=== PATIENT | male | born 1955 | race Caucasian/White ===

== ENCOUNTER 2016-11-07 09:13 | Inpatient (IN) | payer OTHER ==
[~2016-11-07] VITALS: Ht 188 cm; Wt 68.0 kg
[~2016-11-07 09:13] MED LIST: ADVAIR 100-501 EACH INH; CHLORDIAZEPOXID25 M3 PO; GUAIFENESIN-COD10 ML PO; OMEPRAZOLE40 M1 PO; PERCOCET 325 MG1 TA2 PO; PREDNISONE10 M2 PO; PROVENTIL HFA6.7 GM INH; TRAMADOL HCL50 M1 PO; ZOFRAN ODT4 M1 SL
--- NOTE | 2016-11-07 09:21 | NUR ---
61 Y/O MALE C/O SOB X 1 WEEK, WORSENING OVER LAST 24 HOURS. PT WAS DIAGNOSED WITH PNEUMONIA FRIDAY AND PRESCRIBED PREDNISONE, NEBULIZER AND ANTIBIOTICS; HAS BEEN TAKING ALL WITH NO RELIEF. PT IN TRIPOD POSITION, SAT 92% RA; PLACED ON 2L WITH INCREASE TO 94%. CONGESTED COUGH NOTED. AFEBRILE. TAKEN TO ROOM 6 AND WILLIAMS Hull INTO EVAL.
--- NOTE | 2016-11-07 09:32 | ED DYSPNEA/ASTHMA COMPLAINT ---
History of Present Illness General Chief Complaint: Dyspnea (COPD, CHF, Other) Stated Complaint: SOB Source: patient, family, old records Exam Limitations: no limitations Vital Signs & Intake/Output Vital Signs & Intake/Output Vital Signs Date Time Temp Pulse Resp B/P B/P Pulse O2 O2 Flow FiO2 Mean Ox Delivery Rate 11/07 0946 150/90 11/07 0935 98 Nasal 2.0L Cannula 11/07 0930 93 Nasal 2.0L Cannula 11/07 0915 97.5 118 18 201/109 92 Room Air Allergies Coded Allergies: NO KNOWN ALLERGIES (05/29/16) Reconcile Medications Albuterol Sulfate (Proventil Hfa) 6.7 GM HFA.AER.AD 2 PUF INH Q4 SOB Fluticasone-Salmeterol (Advair 100-50 Diskus) 1 EACH BLST.W.DEV 1 PUF INH BID COPD Omeprazole 40 MG CAPSULE.DR 1 CAP PO DAILY acid reflux Prednisone 10 MG TABLET 1 TAB PO AD COPD 6 TABS DAYS 1-2 4 TABSA DAYS 3-5 2 TABS DAYS 6-8 1 TAB DAYS 9-11 Robitussin AC (Guaifenesin-Codeine Syrup) 200 MG-20 MG/10 ML LIQUID 10 ML PO Q6P PRN COUGH Triage Note: 61 Y/O MALE C/O SOB X 1 WEEK, WORSENING OVER LAST 24 HOURS. PT WAS DIAGNOSED WITH PNEUMONIA FRIDAY AND PRESCRIBED PREDNISONE, NEBULIZER AND ANTIBIOTICS; HAS BEEN TAKING ALL WITH NO RELIEF. PT IN TRIPOD POSITION, SAT 92% RA; PLACED ON 2L WITH INCREASE TO 94%. CONGESTED COUGH NOTED. AFEBRILE. TAKEN TO ROOM 6 AND [facility] Hull INTO [facility]. Triage Nurses Notes Reviewed? yes HPI: Patient is a 7-year-old male presents complaining of dyspnea. Symptoms for approximately 2 weeks. Patient was placed on antibiotics and a prednisone taper by his cargo agent last week with no improvement. On Friday patient was seen at an urgent care clinic had a chest x-ray and was diagnosed with pneumonia. Patient was placed on additional prednisone and moxifloxacin. Since yesterday symptoms significantly worsening. Dyspnea is severe worsens with exertion. Associated chills. Patient denies chest pain, fevers. Past History Travel History Traveled to [place] past 21 day No Medical History Any Pertinent Medical History? see below for history Neurological: NONE EENT: NONE Cardiovascular: NONE Respiratory: COPD, emphysema Gastrointestinal: NONE Hepatic: NONE Renal: NONE Musculoskeletal: NONE Psychiatric: NONE Endocrine: NONE Blood Disorders: NONE Cancer(s): NONE DISH STACKER/Reproductive: NONE Surgical History Surgical History: NOSE CYST Psychosocial History What is your primary language Kazakh Tobacco Use: Current Daily Use Daily Tobacco Use Amount/Type: => 5 Cigarettes daily ETOH Use: heavy use (per ) Family History Hx Contributory? No Review of Systems Review of Systems Constitutional: Reports: chills. EENTM: Reports: no symptoms. Respiratory: Reports: see HPI. Cardiovascular: Denies: chest pain, peripheral edema. GI: Denies: abdominal pain, vomiting. Genitourinary: Reports: no symptoms. Musculoskeletal: Reports: no symptoms. Skin: Reports: no symptoms. Neurological/Psychological: Reports: no symptoms. Hematologic/Endocrine: Reports: no symptoms. Immunologic/Allergic: Reports: no symptoms. Physical Exam Physical Exam General Appearance: alert, awake, severe distress Head: atraumatic, normal appearance Eyes: Bilateral: normal appearance, PERRL, EOMI. Ears, Nose, Throat: normal pharynx, normal ENT inspection, hearing grossly normal Neck: normal inspection, supple, full range of motion Respiratory: PATIENT TRIPODING WITH INCREASED RESPIRATORY EFFORT. dIMINISHED LUNG SOUNDS DIFFUSELY. mILD DIFFUSE EXPIRATORY WHEEZING. Cardiovascular: tachycardia (REGULAR RHYTHM) Gastrointestinal: soft, non-tender Extremities: normal inspection, normal capillary refill, normal range of motion, no edema Neurologic/Psych: no motor/sensory deficits, awake, alert, oriented x 3 Skin: intact, normal color, warm/dry Lymphatic: no anterior cervical manju Core Measures ACS in differential dx? No Severe Sepsis Present: No Septic Shock Present: No Progress Differential Diagnosis: asthma, bronchitis, CHF, COPD, pulmonary embolism, pneumonia, unstable angina, electrolyte abnormality Plan of Care: Orders Procedure Date/time Status LACTIC ACID 11/07 1224 Active CIWA 11/07 1210 Active Admit to inpatient 11/07 1147 Active LOWER RESPIRATORY CULTURE 11/07 1142 Active URINALYSIS 11/07 1142 Active Pathway - chart 11/07 1139 Active Patient Data 11/07 1139 Active URINE OSMOLALITY 11/07 1139 Active URINE CREATININE, SPOT 11/07 1139 Active URINE LYTES, SPOT 11/07 1139 Active SERUM OSMOLALITY 11/07 1139 Active Patient Data 11/07 1118 Active BLOOD CULTURE 11/08 923 Active LACTIC ACID 11/08 923 Complete COMPREHENSIVE METABOLIC PANEL 11/08 923 Complete CBC WITHOUT DIFFERENTIAL 11/08 923 Complete EKG 11/08 923 Active TRC EVALUATION (GEN) 11/07 UNK Active House Staff 11/07 UNK Active VTE Mechanical Prophylaxis 11/07 UNK Active Vital Signs 11/07 UNK Active Intake & Output 11/07 UNK Active Current Medications Sig/Omar Start time Last Medication Dose Stop Time Status Admin Methylprednisolone 40 MG Q8 11/07 1400 UNVr (Solumedrol) 11/11 0601 Enoxaparin Sodium 40 MG DAILY 11/07 1138 UNVr (Lovenox) Azithromycin 500 MG ONCE ONE 11/07 1115 AC (Zithromax) 11/07 1214 Sodium Chloride 250 ML (Normal Saline 0.9%) Sodium Chloride 1,000 ML ONCE ONE 11/07 1100 AC 11/07 (Normal Saline 0.9%) 11/07 2058 1123 Laboratory Tests 11/07/16 0950: Lactic Acid Pending 11/07/16 0950: Anion Gap 11, Estimated GFR > 60, BUN/Creatinine Ratio 12.0, Glucose 98, Lactic Acid 1.4, Calcium 9.0, Total Bilirubin 0.7, AST 40, ALT 42, Alkaline Phosphatase 85, Total Protein 6.8, Albumin 3.8, Globulin 3.0, Albumin/Globulin Ratio 1.3, CBC w Diff MAN DIFF ORDERED, RBC 5.34, MCV 94.4 H, MCH 32.2 H, RDW 13.8, MPV 5.5 L, Gran % 92.0 H, Lymphocytes % 4.8 L, Monocytes % 2.7, Eosinophils % 0.1 , Basophils % 0.4, Absolute Granulocytes 16.6 H, Absolute Lymphocytes 0.9 L, Absolute Monocytes 0.5, Absolute Eosinophils 0, Absolute Basophils 0.1, Platelet Estimate INCREASED, Poikilocytosis 1+, Anisocytosis 1+, PUBS MCHC 34.1 Microbiology 11/07 1142 LOWER RESP: Respiratory Culture - ORD 11/07 1142 LOWER RESP: Gram Stain - ORD 11/07 1025 BLOOD: Blood Culture - RECD 11/07 0950 BLOOD: Blood Culture - RECD 11/07/2016 10:30:34 AM: Patient feeling improved after DuoNeb treatment and with the supplemental oxygen. Patient longer tripoding. 11/07/2016 11:16:14 AM: Results of labs discussed with the patient and his . Patient mentating normal. Discussed with Dr. Warren: IV steroids, IV antibiotics, will consult on patient. Discussed with Dr. He for admission. (TYSHAWN KRAMER,FIONA) Diagnostic Imaging: Viewed by Me: Radiology Read. Discussed w/RAD: Radiology Read. Radiology Impression: PATIENT: DENA FULLER PRESENT AGE: 61 PATIENT ACCOUNT NO: [id number] : 56 LOCATION: [facility] ORDERING PHYSICIAN: FIONA KRAMER SERVICE DATE: 11/07/16 EXAM TYPE: RAD - XRY-CHEST XRAY, PA AND LATERAL EXAMINATION: XR CHEST CLINICAL INFORMATION: Cough , recent diagnosis of pneumonia, worsening symptoms. COMPARISON: Chest 2015. CT of chest 03/28/2016. TECHNIQUE: PA and lateral views of the chest are obtained. FINDINGS: The heart is normal size. There is no congestion or focal consolidation. There is minor linear atelectasis at the left lung base. There are stable findings of COPD. There are healed or healing right 7 through 9 and left 8 and 9 rib fractures. IMPRESSION: 1. Stable COPD findings. 2. Healed or healing bilateral rib fractures. 3. No acute cardiopulmonary process. DICTATED BY: YEIMI SIMON MD DATE/TIME DICTATED:11/07/161014 URBAN ANTHROPOLOGIST: IVAN DATE/TIME TRANSCRIBED:11/07/161014 CONFIDENTIAL, DO NOT COPY WITHOUT APPROPRIATE AUTHORIZATION. <Electronically signed in Other Vendor System> SIGNED BY: YEIMI SIMON MD 11/07/16 1027 Initial ED EKG: normal sinus rhythm 95 bpm normal axis, normal intervals, prominent T waves V3 through V5 similar to previous EKG, no acute ST/T-wave abnormalities compared to previous EKG Prior EKG: unchanged Departure Departure Time of Disposition: 1111 Disposition: STILL A PATIENT Condition: Stable Clinical Impression Primary Impression: COPD exacerbation Secondary Impressions: Hyponatremia Referrals: PATY HER MD (PCP/Family) Departure Forms: Customer Survey General Discharge Information Admission Note Spoke With: CASSANDRA HE M.D Documentation of Exam: Documentation of any treatments & extenuating circumstances including Concerns Regarding Discharge (functional status, medication knowledge or non-compliance, living conditions, etc.) that warrant an admission rather than observation: Total respiratory care, IV steroids, IV antibiotics, pulmonary consultation, correction of sodium, neurologic monitoring given patient's hyponatremia. [facility] monitoring Critical Care Note Critical Care Note Critical Care Time: 30-74 min
--- NOTE | 2016-11-07 10:00 | NUR ---
RESP TX GIVEN. TO AND FROM XRAY.
--- NOTE | 2016-11-07 10:26 | NUR ---
DRAW TWO SETS BLD CULTURES, BLUE, SST, LAV, MARSHALL SENT TO LAB
--- NOTE | 2016-11-07 10:27 | RADIOLOGY REPORT ---
EXAMINATION: XR CHEST CLINICAL INFORMATION: Cough, recent diagnosis of pneumonia, worsening symptoms. COMPARISON: Chest 04/09/2016. CT of chest 03/28/2016. TECHNIQUE: PA and lateral views of the chest are obtained. FINDINGS: The heart is normal size. There is no congestion or focal consolidation. There is minor linear atelectasis at the left lung base. There are stable findings of COPD. There are healed or healing right 7 through 9 and left 8 and 9 rib fractures. IMPRESSION: 1. Stable COPD findings. 2. Healed or healing bilateral rib fractures. 3. No acute cardiopulmonary process.
[2016-11-07 10:32] LABS: ABSOLUTE BASOPHIL COUNT 0.1 /CUMM (0.0-0.2); ABSOLUTE EOSINOPHIL COUNT 0 /CUMM (0.0-0.7); ABSOLUTE GRANULOCYTE CT 16.6 /CUMM (1.4-6.5); ABSOLUTE LYMPH COUNT 0.9 /CUMM (1.2-3.4); ABSOLUTE MONOCYTE COUNT 0.5 /CUMM (0.10-0.60); BASOPHIL % 0.4 % (0.0-2.0); EOSINOPHIL % 0.1 % (0-5); HEMATOCRIT 50.4 % (42-52); MEAN CORPUSCULAR HGB 32.2 PG (27.0-31.0); MEAN CORPUSCULAR HGB CONC 34.1 G/DL (33.0-37.0); MEAN CORPUSCULAR VOLUME 94.4 FL (80.0-94.0); MEAN PLATELET VOLUME 5.5 FL (7.4-10.4); PLATELET COUNT 506 /CUMM (130-400); RBC DISTRIBUTION WIDTH 13.8 % (11.5-14.5); RED BLOOD CELL CT 5.34 /CUMM (4.70-6.10); WHITE BLOOD CELL COUNT 18.1 /CUMM (4.8-10.8)
--- NOTE | 2016-11-07 10:52 | NUR ---
CRITICAL TEST RESULTS [id number] DENA FULLER 61 M TESTS AND RESULTS: SODIUM 119 Results received and read back by: JOHN GILBERT Results received date and time: 11/07/16 1052 The following provider was notified of the results, and read the results back: SENTHIL Sotelo Notified date and time: 11/07/16 at 1052
--- NOTE | 2016-11-07 11:35 | History & Physical ---
HUNTER ANDREWS 11/07/16 1134: General Information and HPI MD Statement: I have seen and personally examined DENA FULLER and documented this H&P. The patient is a 61 year old M who presented with a patient stated chief complaint of [sob]. Source of Information: patient Exam Limitations: no limitations History of Present Illness: This is a 61-year-old male, current active cigarette smoker (one pack per day, previous smoker since 19 years old, previously 2-3 packs per day), history of alcoholism (admission for alcohol detoxification 2002, sober for 15 years and drinking again since last 2 years), history of COPD, history of ulcerative colitis, previously found pulmonary nodules on CT chest with low-dose lung cancer screening comes in today with worsening shortness of breath for last 2 weeks. Currently the patient was doing all right when he started to experience worsening shortness of breath 2 weeks prior to admission he noticed that his shortness of breath was worse, he could not walk, it was worse on exertion. It continued to gradually worsen and came to a point where he sometimes had to stand up or leaning forward to catch his breath and it was difficult to use the steps at home as well. Because of this ,he contacted his pulmonologst - Dr. Warren who prescribed 4 days of steroid taper along with 5 days of azithromycin. The patient completed the entire course, which finished on 11/04/2016, however his shortness of breath did not improve much. He noticed that it was very severe inspite of completion of prednisone and azithromycin OP and on Friday - he visited the urgent care clinic 3 days prior to today's presentation. They did a chest x-ray and found pneumonia and treated him with moxifloxacin and prednisone 20 mg daily. Patient has been smoking 2-3 packs per day since he was 19 years old, has gradually reduce it to one pack per day. Has been diagnosed with COPD and is not on any home oxygen. His regular doctors are Dr. Warren as a lung doctor and Dr. Geremias Claire as his PCP. Denied any chest pain, palpitations, nausea, vomiting, diarrhea, lower extremity edema. However he did complain of mild chills, nasal congestion and abnormal sensation in the throat. Upon examination it was noted that the patient had candidal oral thrush at the back of the throat. Allergies/Medications Allergies: Coded Allergies: NO KNOWN ALLERGIES (05/29/16) Home Med list Albuterol Sulfate (Proventil Hfa) 6.7 GM HFA.AER.AD 2 PUF INH Q4 SOB Fluticasone-Salmeterol (Advair 100-50 Diskus) 1 EACH BLST.W.DEV 1 PUF INH BID COPD Moxifloxacin HCl (Avelox) 400 MG TABLET 400 MG PO D ANTIBIOTIC, INFECTION ( Reported) Omeprazole 40 MG CAPSULE.DR 1 CAP PO DAILY acid reflux Prednisone 10 MG TABLET 1 TAB PO AD COPD 6 TABS DAYS 1-2 4 TABSA DAYS 3-5 2 TABS DAYS 6-8 1 TAB DAYS 9-11 Robitussin AC (Guaifenesin-Codeine Syrup) 200 MG-20 MG/10 ML LIQUID 10 ML PO Q6P PRN COUGH Compliance With Home Meds: FAIR Past History Travel History Traveled to [place] past 21 day No Medical History Neurological: NONE EENT: NONE Cardiovascular: NONE Respiratory: COPD, emphysema Gastrointestinal: NONE Hepatic: NONE Renal: NONE Musculoskeletal: NONE Psychiatric: NONE Endocrine: NONE Blood Disorders: NONE Cancer(s): NONE TECHNICAL SERVICES MANAGER/Reproductive: NONE Surgical History Surgical History: NOSE CYST Past Family/Social History Psychosocial History Where do you live? Home Who Do You Live With? spouse Services at Home: None Smoking Status: Current Everyday Smoker ETOH Use: heavy use (per ) Illicit Drug Use: denies illicit drug use Functional Ability ADLs Independent: dressing, eating, toileting, bathing. Ambulation: independent IADLs Independent: shopping, housework, finances, food prep, telephone, transportation , medication admin. 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 Denies: chills, malaise, weakness. EENTM: Denies: blurred vision, double vision, visual changes, eye pain, eye drainage. Cardiovascular: Reports: orthopena. Denies: chest pain, edema, palpitations, peripheral edema, syncope. Respiratory: Reports: cough, orthopnea, short of breath, sputum production, wheezing. Denies : hemoptysis, stridor. GI: Denies: abdominal pain, bloating, constipation, diarrhea, distention. Genitourinary: Denies: discharge, dysuria, frequency, hematuria, hesitation. Musculoskeletal: Denies: back pain, gout, joint pain, joint swelling, muscle pain. Skin: Denies: cysts, change in skin color, change in hair/nails, dryness. Neurological/Psychological: Denies: anxiety, ataxia, cognitive dysfunction, confusion, depressed, emotional problems. Hematologic/Endocrine: Reports: no symptoms. Immunologic/Allergic: Reports: no symptoms. All Other Systems: Reviewed and Negative Exam & Diagnostic Data Last 24 Hrs of Vital Signs/I&O Vital Signs Date Time Temp Pulse Resp B/P B/P Pulse O2 O2 Flow FiO2 Mean Ox Delivery Rate 11/07 1242 97 18 152/82 92 Nasal 3.0L Cannula 11/07 1228 97.1 94 18 144/69 11/07 0946 150/90 11/07 0935 98 Nasal 2.0L Cannula 11/07 0930 93 Nasal 2.0L Cannula 11/07 0915 97.5 118 18 201/109 92 Room Air Intake & Output 11/07 1600 11/07 0800 11/07 0000 Intake Total 1100 Output Total Balance 1100 Intake, IV 1100 Patient 68.039 kg Weight Weight Reported by Patient Measurement Method Physical Exam General Appearance Alert, Oriented X3, Cooperative, No Acute Distress Skin No Rashes, No Breakdown, No Significant Lesion Skin Temp/Moisture Exam: Cool/Dry Sepsis Skin Exam (color): Normal for Ethnicity HEENT Atraumatic, PERRLA, EOMI Neck Supple, No JVD, No thryomegaly Lymphatic mo lad Cardiovascular Regular Rate, Normal S1, Normal S2, No Murmurs Lungs mild wheezing noted b/l Abdomen Normal Bowel Sounds, Soft, No Tenderness Extremities No Clubbing, No Cyanosis, No Edema, Normal Pulses Vascular Normal Pulses Last 24 Hrs of Labs/Gage: Laboratory Tests 11/07/16 1352: Urine Color YEL, Urine Clarity CLEAR, Urine pH 7.5, Ur Specific [place] 1.010, Urine Protein NEG, Urine Ketones NEG, Urine Nitrite NEG, Urine Bilirubin NEG, Urine Urobilinogen 0.2, Ur Leukocyte Esterase NEG, Ur Microscopic EXAM NOT REQUIRED, Urine Hemoglobin NEG, Urine Glucose NEG 11/07/16 1352: Urine Osmolality 227 L, Ur Random Creatinine 29.6, Ur Random Sodium 33, Ur Random Potassium 50.1, Fraction Sodium Excret 0.5 11/07/16 1351: Lactic Acid 1.4 04/27/17 1351: Anion Gap 8, Estimated GFR > 60, BUN/Creatinine Ratio 11.7, Serum Osmolality 273 L 11/07/16 0950: Anion Gap 11, Estimated GFR > 60, BUN/Creatinine Ratio 12.0, Glucose 98, Serum Osmolality 263 L, Lactic Acid 1.4, Calcium 9.0, Total Bilirubin 0.7, AST 40, ALT 42, Alkaline Phosphatase 85, Total Protein 6.8, Albumin 3.8, Globulin 3.0, Albumin/Globulin Ratio 1.3, CBC w Diff MAN DIFF ORDERED, RBC 5.34, MCV 94.4 H, MCH 32.2 H, RDW 13.8, MPV 5.5 L, Gran % 92.0 H, Lymphocytes % 4.8 L, Monocytes % 2.7, Eosinophils % 0.1, Basophils % 0.4, Absolute Granulocytes 16.6 H, Absolute Lymphocytes 0.9 L, Absolute Monocytes 0.5, Absolute Eosinophils 0, Absolute Basophils 0.1, Platelet Estimate INCREASED, Poikilocytosis 1+, Anisocytosis 1+, PUBS MCHC 34.1, Serum Alcohol < 10.0 Microbiology 11/08 1351 URINE ROUT: Legionella Antigen - COMP 11/07 135 URINE ROUT: Streptococcus pneumoniae Antigen (M - COMP 11/07 1142 LOWER RESP: Respiratory Culture - ORD 11/07 1142 LOWER RESP: Gram Stain - ORD 11/07 1025 BLOOD: Blood Culture - RECD 11/07 0950 BLOOD: Blood Culture - RECD Diagnostic Data EKG Results nsr, peaked t waves noted on previous ekg as well CXR Results no acute cardiopulm findings. Assessment/Plan Assessment: In Summary this is a 61-year-old male with past medical history of COPD not on home oxygen, current active smoker, heavy alcohol user came in with chief complaint of worsening shortness of breath since last 2 weeks, failed outpatient treatment with azithromycin and prednisone, was started on Avelox at the urgent care clinic is here for worsening shortness of breath secondary to COPD exacerbation. At the emergency department he was found to be afebrile however he was tachycardic at 118, respiratory rate of 20, blood pressure was found to be 201/ 109 which came down to 150/90 without meds, he was 92% saturating on room air on was placed on 2 L nasal cannula which improved oxygen saturation 98%. He was found to have an elevated white count of 18.1, no bands, H/H of 17.2/50.4 , platelet count of 506.His lytes were found to be low sodium of 119 (baseline around 130) him a potassium of 5.6, bicarbonate 21, BUN/creatinine of 6/0.5, normal GFR. Initial lactic acid was found to be less than 2 at 1.4, liver function tests within normal limits, calcium was around 9. Patient was received one time of 125 IV Solu-Medrol at the emergency department and one time of IV ceftriaxone and azithromycin. Chest x-ray did not show any acute cardiac pulmonary findings. Blood cultures are sent prior to receiving the antibiotics however patient has been on antibiotics prior to admission. Sputum cultures, urine Legionella and strep pneumonia antigen were sent. Problem list along with assessment and plan. Problem #1 COPD exacerbation. * Known case of COPD, follows up with Dr. Warren. * Patient was recently started on Avelox at the urgent care for finding of pneumonia on chest x-ray.He has already taken 3 out of 7 days of Avelox. * Continue Avelox to complete entire course of 7 days today day 4 out of 7. * Continue IV Solu-Medrol 100mg every 8. * Continue to follow sputum cultures, urine for Legionella and strep pneumonia antigen. * Continue TRC nebulization. * Incentive spirometry. Problem #2 leukocytosis. * Even though patient had finding of pneumonia on chest x-ray at the urgent care clinic, today the chest x-ray is not showing any signs of infection/pneumonia, could be resolving pna, the leukocytosis most likely secondary to recent steroid use. * Patient also does not have any fever. * However as the patient was started on Avelox will complete the entire course of Avelox, as it could be a resolving pneumonia. * Continue to follow white count. Problem #3 hyponatremia. * Patient seems mildly dehydrated however volume status mostly seems to be normal. * Patient has history of heavy drinking and the hyponatremia most likely secondary to beer potomania * Baseline sodium of 130. * glucose within normal limits therefore less likely pseudohyponatremia. * Will check serum osmolarity. * We'll also check urine lites. * Further management of hyponatremia and depending on the serum osmolarity. * We'll recheck sodium at 6 PM. Problem #4 hyperkalemia. * Potassium noted to be 5.4. * One time a 60 mL Kayexalate given. * Tall T waves noted on the EKG however these were present on the previous EKG as well. * Recheck potassium with BP at 6 PM. Problem #5 history of alcoholism. * Patient has been drinking since 19 years old, was sober for 15 years in between started again for last 2 to 3 years, 6 beers daily. * Continue monitoring CIWA * Continue Ativan for ciwa protocol when necessary. Patient is full code DVT prophylaxis with Lovenox. Regular diet. As Ranked By This Provider Problem List: 1. Hyponatremia 2. ETOH abuse 3. COPD (chronic obstructive pulmonary disease) 4. COPD exacerbation Core Measures/Miscellaneous Acute Coronary Syndrome ACS Diagnosis: No Cerebrovascular Accident CVA/TIA Diagnosis: No Congestive Heart Failure CHF Diagnosis: No Venous Thromboembolism VTE Risk Factors: Age > 40 No [facility] VTE prophylaxis d/t: No contraindications No VTE Pharm Prophylaxis d/t: No contraindications VTE Diagnosis: No VTE Type: NONE VTE Confirmed by (Test): NONE Severe Sepsis Severe Sepsis Present: No Septic Shock Septic Shock Present: No Miscellaneous Documentation Attending Case Discussed With: LEONOR NASH MD Primary Care Physician: GEREMIAS CLAIRE MD Patient sees these Specialists Dr warren Level of Patient Care: General Medicine LEONOR NASH 11/08/16 1112: Attending MD Review Statement Attending Statement Attending Statement: examined this patient, discuss w/resident/PA/SOLAR THERMAL INSTALLER, agreed w/resident/PA/SOLAR THERMAL INSTALLER, discussed with family, reviewed EMR data (avail), discussed with nursing, discussed with case mgmt, reviewed images, amended to note Attending Assessment/Plan: ASSESSMENT 1. Acute hypoxic respiratory failure. 2. Alcohol dependence 3. hyponatremia 4. hyperkalemia 5. CAP. 6. COPD 7. Tobacco abuse PLAN 1. Admit to inpatient medical services 2. I/v steroids, abx, consult pulmonary. O2 supplementation, TRC ,nebs 3. CIWA scale prn ativan 4. Hyponatremia probable dehydration NS gentle hydration. 5. kayexalate for hyperkalemia 6. alcohol and tobacco cessation counselling. 7. gi/dvt prophyalxis 8. full code plan of care d/wed patient and family/ bedside.
--- NOTE | 2016-11-07 12:00 | NUR ---
RESPIRATIONS LESS LABORED.
--- NOTE | 2016-11-07 12:13 | Cons- Pulmonary ---
General Information and HPI Consulting Request Date of Consult: 11/07/16 Requested By: ER Reason for Consult: COPD Exacerbation Source of Information: patient Exam Limitations: no limitations History of Present Illness: 61-year-old man. Known to me from the office. Last seen 07/2016. Recent urgent care visit for an excaerbation of COPD. Rx avelox and steroids. Usual COPD tx with BREO with rinsing of the mouth. Participated in smoking cessation, however continues to smoke 1 PPD, this is reduced from 2 PPD. Still smoking 1PPD from 2PPD Dyspnea with exertion. Cough, yellowish phlegm, no obvious fevers. WBC 18.1 Healing rib fractures on CXR, without obvious infiltrate. No rib tenderness or splinting. No sick contacts or travel hx. Admits to drinking to at least a 6 pack per day. PFTs April 2016 show severe emphysema. DLCO was 24. There is also is evidence of air trapping and a significant bronchodilator response FEV1 was 43% predicted 1.96L. He has a significant history of depression and a very significant smoking history of 45 years smoking about [address] Gonzalez has been following him for pulmonary nodules in the next nodule follow-up will be in one year. Multiple pulmonary nodules and regions of scarring are again identified and are unchanged. Specifically, the spiculated nodule within the left upper lobe is stable and measures 0.4 cm. There has been interval resolution of a right upper lobe nodule. No new or increasing pulmonary mass or nodule seen. 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 Allergies/Medications Allergies: Coded Allergies: NO KNOWN ALLERGIES (05/29/16) Home Med List: Albuterol Sulfate (Proventil Hfa) 6.7 GM HFA.AER.AD 2 PUF INH Q4 SOB Fluticasone-Salmeterol (Advair 100-50 Diskus) 1 EACH BLST.W.DEV 1 PUF INH BID COPD Omeprazole 40 MG CAPSULE. 1 CAP PO DAILY acid reflux Prednisone 10 MG TABLET 1 TAB PO AD COPD 6 TABS DAYS 1-2 4 TABSA DAYS 3-5 2 TABS DAYS 6-8 1 TAB DAYS 9-11 Robitussin AC (Guaifenesin-Codeine Syrup) 200 MG-20 MG/10 ML LIQUID 10 ML PO Q6P PRN COUGH Current Medications: Current Medications Sig/Omar Start time Last Medication Dose Route Stop Time Status Admin Albuterol Sulfate 3 ML ONCE ONE 11/07 0930 DC 11/07 INH 11/07 930 0935 Azithromycin 500 MG ONCE ONE 11/07 1115 AC Sodium Chloride 250 ML IV 11/07 1214 Ceftriaxone Sodium 0 .STK-MED ONE 11/07 1132 DC .ROUTE Ceftriaxone Sodium 1,000 MG ONCE ONE 11/07 1115 DC 11/07 IV 11/07 1116 1148 Enoxaparin Sodium 40 MG DAILY 11/07 1138 UNVr SC Ipratropium [place] 2.5 ML ONCE ONE 11/07 0930 DC 11/07 INH 11/07 0831 0935 Methylprednisolone 40 MG Q8 11/07 1400 UNVr IV 11/11 0601 Methylprednisolone 0 .STK-MED ONE 11/07 1131 DC .ROUTE Methylprednisolone 125 MG ONCE ONE 11/07 1115 DC 11/07 IV 11/07 1116 1148 Sodium Chloride 1,000 ML ONCE ONE 11/07 1100 AC 11/07 IV 11/07 Review of Systems Comments 18 point review of systems performed. Pertinent positive and negative findings are in the HPI, otherwise negative. Past History Travel History Traveled to [place] past 21 day No Medical History Neurological: NONE EENT: NONE Cardiovascular: NONE Respiratory: COPD, emphysema Gastrointestinal: NONE Hepatic: NONE Renal: NONE Musculoskeletal: NONE Psychiatric: NONE Endocrine: NONE Blood Disorders: NONE Cancer(s): NONE EXPERIENTIAL THERAPIST/Reproductive: NONE Surgical History Surgical History: NOSE CYST Family History Relations & Conditions If Any: Relation not specified for: *No pertinent family history Psychosocial History ETOH Use: heavy use (per ) Exam & Diagnostic Data Last 24 Hrs of Vital Signs/I&O Vital Signs Date Time Temp Pulse Resp B/P B/P Pulse O2 O2 Flow FiO2 Mean Ox Delivery Rate 11/07 0946 150/90 11/07 0835 98 Nasal 2.0L Cannula 11/07 929 93 Nasal 2.0L Cannula 11/07 0815 97.5 118 18 201/109 92 Room Air Intake & Output 11/07 1600 11/07 0800 11/07 0000 Intake Total Output Total Balance Patient 150 lb Weight Weight Reported by Patient Measurement Method Physical Exam Other Physical Findings: Gen - alert and awake HEENT - NCAT CVS - S1, S2, no murmurs, rubs or gallops Lungs - prolonged end expiratory phase Abdomen - soft, non-tender, bs+ Ext - no edema, no cyanosis Last 48 Hrs of Labs/Gage: Laboratory Tests 11/07/16 0950: Lactic Acid Pending 11/07/16 0950: Anion Gap 11, Estimated GFR > 60, BUN/Creatinine Ratio 12.0, Glucose 98, Lactic Acid 1.4, Calcium 9.0, Total Bilirubin 0.7, AST 40, ALT 42, Alkaline Phosphatase 85, Total Protein 6.8, Albumin 3.8, Globulin 3.0, Albumin/Globulin Ratio 1.3, CBC w Diff MAN DIFF ORDERED, RBC 5.34, MCV 94.4 H, MCH 32.2 H, RDW 13.8, MPV 5.5 L, Gran % 92.0 H, Lymphocytes % 4.8 L, Monocytes % 2.7, Eosinophils % 0.1 , Basophils % 0.4, Absolute Granulocytes 16.6 H, Absolute Lymphocytes 0.9 L, Absolute Monocytes 0.5, Absolute Eosinophils 0, Absolute Basophils 0.1, Platelet Estimate INCREASED, Poikilocytosis 1+, Anisocytosis 1+, PUBS MCHC 34.1 Assessment/Plan Impression/Plan: 61-year-old man. Known to me from the office. Last seen 07/2016. Recent urgent care visit for an excaerbation of COPD. Rx avelox and steroids. Usual COPD tx with BREO with rinsing of the mouth. Participated in smoking cessation, however continues to smoke 1 PPD, this is reduced from 2 PPD. Still smoking 1PPD from 2PPD Dyspnea with exertion. Cough, yellowish phlegm, no obvious fevers. WBC 18.1 Healing rib fractures on CXR, without obvious infiltrate. No rib tenderness or splinting. No sick contacts or travel hx. Admits to drinking to at least a 6 pack per day. PFTs April 2016 show severe emphysema. DLCO was 24. There is also is evidence of air trapping and a significant bronchodilator response FEV1 was 43% predicted 1.96L. He has a significant history of depression and a very significant smoking history of 45 years smoking about [address] Gonzalez has been following him for pulmonary nodules in the next nodule follow-up will be in one year. Multiple pulmonary nodules and regions of scarring are again identified and are unchanged. Specifically, the spiculated nodule within the left upper lobe is stable and measures 0.4 cm. There has been interval resolution of a right upper lobe nodule. No new or increasing pulmonary mass or nodule seen. 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 Impression 61 year old man * COPD exacerbation, possible underlying bronchitis and smoking related lung disease * hyponatremia with a likely component of alcoholism * healing rib fractures, per pt had an accidental fall, however no symptoms Plan - TRC/Nebs - incentive spirometry - solumedrol 40mg iv q8h, monitor finger sticks - as far as antibiotics can complete the course of po Avelox, today was supposed to be day 4/7 - sputum cx, urine for legionella and strep ag - takes BREO at home (do not order symbicort inpatient) - can add spiriva to regimen as long as no contraindications to anti- cholingergis (glaucoma, prostatic issues) - hyponatremia workup per primary team, urine and serum osm, etc - drinking and smoking cessation counseling - monitor on ciwa - DVT prophylaxis at all times Consult Acknowledgment - Thank you for your consult request.
[2016-11-07 12:28] VITALS: BP 144/69
--- NOTE | 2016-11-07 13:00 | NUR ---
ATTEMPTED TO WALK TO BR, BECAME SOB, ASSISTED BACK TO BED. O2 SAT 93% WITH O2 AT 2L.
[2016-11-07] MEDS ORDERED: AVELOX400 M1 PO (14:08)
[2016-11-07 14:15] VITALS: BP 152/82
--- NOTE | 2016-11-07 14:21 | NUR ---
BED ASSIGNMENT 204-02
--- NOTE | 2016-11-07 14:29 | NUR ---
REPORT TO FLOOR. (SETEPHANIE CEJA)
--- NOTE | 2016-11-07 15:24 | NUR ---
[facility] CALLED FOR TRANSPORT
--- NOTE | 2016-11-07 15:28 | NUR ---
ASSUMED CARE OF PT IN ED. PT AWAKE, ALERT AND CONVERSANT WITH NO COMPLAINTS. STATES ATIVAN MADE HIM TIRED. REPORTS BREATHING "MUCH BETTER" THAN ON ARRIVAL TO ED. NORMAL SALINE INFUSING @ 75 ML/HR PER SEP PT REQUESTING TO KEEP JEANS ON. HOSPITAL GOWN OVER CLOTHES. AWAITING TRANSPORT.
--- NOTE | 2016-11-07 15:45 | NUR ---
1545 PT ARRIVED TO THE FLOOR BY Edgar MAGAÑA+O X3, 95% ON 3LNC, NO S/O DISTRESS, DENIES PAIN, VSS, ORIENTED TO ROOM, BED LOW, LOCKED, CALL LIGHT IN REACH.
[2016-11-07 15:51] VITALS: BP 138/72
[2016-11-07 22:20] VITALS: BP 154/80
[2016-11-08] VITALS (7 sets, daily range): BP systolic 128–142; BP diastolic 62–82
[2016-11-08 04:09] LABS: ABSOLUTE BASOPHIL COUNT 0 /CUMM (0.0-0.2); ABSOLUTE EOSINOPHIL COUNT 0 /CUMM (0.0-0.7); ABSOLUTE GRANULOCYTE CT 19.4 /CUMM (1.4-6.5); ABSOLUTE LYMPH COUNT 0.7 /CUMM (1.2-3.4); ABSOLUTE MONOCYTE COUNT 0.4 /CUMM (0.10-0.60); BASOPHIL % 0 % (0.0-2.0); EOSINOPHIL % 0 % (0-5); GRANULOCYTE % 94.6 % (42.2-75.2); HEMATOCRIT 44.1 % (42-52); MEAN CORPUSCULAR HGB 32.5 PG (27.0-31.0); MEAN CORPUSCULAR HGB CONC 33.8 G/DL (33.0-37.0); MEAN CORPUSCULAR VOLUME 96.2 FL (80.0-94.0); MEAN PLATELET VOLUME 5.6 FL (7.4-10.4); PLATELET COUNT 436 /CUMM (130-400); RBC DISTRIBUTION WIDTH 13.8 % (11.5-14.5); RED BLOOD CELL CT 4.59 /CUMM (4.70-6.10); WHITE BLOOD CELL COUNT 20.5 /CUMM (4.8-10.8)
--- NOTE | 2016-11-08 06:52 | PN- Housestaff ---
See Addendum Subjective Follow-up For: COPD exacerbation alcohol withdrawal hyponatremia hyperkalemia htn Subjective: Pt was noted to be more lethargic this morning. He was alert but would doze off intermittently during our conversation. ABG checked, not indicative of CO2 retention. Scheduled ativan was discontinued as it is most likely the cause of his lethargy. will keep prn ativan per beny. his only complaint this morning was that he had to urinate frequently due to the IV fluids we are giving him. when we saw him later in the morning, his was tearful about his current state, stating that "this is not him", referring to his lethargy. She seems guilty about continuing to smoke, along with him. She also said that the pt would try to hide his drinking from her, so she cannot accurately say how much she drank, but reported that his last drink was 11/06 night. He has been afebrile, bp 130-154/69-90. noted inc in wbc from 18.1 to 20.5 hb 17.2 to 14.9, platelet 506 to 436. na 121 to 126, will finish the current bag of ns. k 5.6 to 4.6 with kayexelate. solumedrol changed to q12 as per Dr. Warren. Review of Systems Constitutional: Reports: see HPI. Objective Last 24 Hrs of Vital Signs/I&O Vital Signs Date Time Temp Pulse Resp B/P B/P Pulse O2 O2 Flow FiO2 Mean Ox Delivery Rate 11/08 0814 92 Nasal 2.0L Cannula 11/08 0800 95 Nasal 3.0L Cannula 11/08 0800 20 95 Nasal 3.0L Cannula 11/08 0621 97.7 92 22 142/82 95 Nasal 2.0L Cannula 11/08 0202 98.1 83 24 130/82 96 Nasal 2.0L Cannula 11/08 0000 94 Nasal 2.0L Cannula 11/07 2220 97.8 88 18 154/80 96 Nasal 3.0L Cannula 11/07 1701 Nasal 3.0L Cannula 11/07 1558 94 Nasal 2.0L Cannula 11/07 1551 98.0 97 20 138/72 95 Nasal 3.0L Cannula 11/07 1536 97.4 88 20 134/75 92 Nasal 2.0L Cannula 11/07 1415 94 20 152/82 11/07 1242 97 18 152/82 92 Nasal 3.0L Cannula 11/07 1228 97.1 94 18 144/69 Intake & Output 11/08 1600 11/08 0800 11/08 0000 Intake Total 670 Output Total 400 0 Balance -400 670 Intake, IV 430 Intake, Oral 240 Number 0 Bowel Movements Output, Urine 400 0 Physical Exam General Appearance: lethargic Cardiovascular: Regular Rate, Normal S1, Normal S2 Lungs: diffuse decreased air entry Abdomen: Normal Bowel Sounds, Soft, No Tenderness Extremities: No Edema Current Medications: Current Medications Sig/Omar Start time Last Medication Dose Route Stop Time Status Admin Albuterol Sulfate 3 ML EVERY 4 HRS/AWAKE 11/08 1999 AC 11/08 INH 0812 Azithromycin 500 MG ONCE ONE 11/07 1115 DC 11/07 Sodium Chloride 250 ML IV 11/07 1214 1220 Ceftriaxone Sodium 0 .STK-MED ONE 11/07 1132 DC .ROUTE Ceftriaxone Sodium 1,000 MG ONCE ONE 11/07 1115 DC 11/07 IV 11/07 1116 1148 Enoxaparin Sodium 40 MG DAILY 11/07 1138 AC 11/08 SC 1019 Ipratropium [place] 2.5 ML EVERY 4 HRS/AWAKE 11/08 1999 AC 11/08 INH 0812 Lorazepam 0 Q1P PRN 11/08 0300 AC IV Lorazepam 0 .STK-MED ONE 11/07 1428 DC PO Lorazepam 0 Q1P PRN 11/07 1330 DC IV Lorazepam 2 MG Q6 11/07 1326 DC 11/08 PO 0555 Methylprednisolone 40 MG Q12H 11/08 1800 AC IV 11/13 0601 Methylprednisolone 40 MG Q12 11/08 1000 DC IV 11/12 2201 Methylprednisolone 40 MG Q8 11/07 1400 DC 11/08 IV 11/11 0601 0555 Methylprednisolone 0 .STK-MED ONE 11/07 1131 DC .ROUTE Methylprednisolone 125 MG ONCE ONE 11/07 1115 DC 11/07 IV 11/07 1116 1148 Moxifloxacin HCl 400 MG DAILY 11/07 1223 AC 11/08 PO 1019 Nystatin 5 ML 4 TIMES/DAY 11/07 2200 AC 11/08 PO 1019 Sodium Chloride 1,000 ML Q13H 11/07 1445 AC 11/08 IV 11/08 1344 0356 Sodium Chloride 1,000 ML ONCE ONE 11/07 1100 DC 11/07 IV 11/07 Sodium Polystyrene 0 .STK-MED ONE 11/07 1349 DC Sulfonate .ROUTE Sodium Polystyrene 60 ML ONCE ONE 11/07 1330 DC 11/07 Sulfonate PO 11/07 1331 1350 Last 24 Hrs of Lab/Gage Results Last 24 Hrs of Labs/Mics: Laboratory Tests 11/08/16 0810: pH 7.45, pCO2 36, pO2 65 L, HCO3 25, ABG O2 Sat (Measured) 92.0 L, P-50 (Temp Corrected) N, Carboxyhemoglobin 1.1 L, O2 Concentration % 3LPM, O2 Delivery Method NC, Phlebotomy Draw Site RIGHT RADIAL 11/08/16 0400: Anion Gap 6, Estimated GFR > 60, BUN/Creatinine Ratio 20.0, CBC w Diff NO MAN DIFF REQ, RBC 4.59 L, MCV 96.2 H, MCH 32.5 H, RDW 13.8, MPV 5.6 L, Gran % 94.6 H, Lymphocytes % 3.5 L, Monocytes % 1.9, Eosinophils % 0, Basophils % 0 L, Absolute Granulocytes 19.4 H, Absolute Lymphocytes 0.7 L, Absolute Monocytes 0.4, Absolute Eosinophils 0, Absolute Basophils 0, PUBS MCHC 33.8 11/07/161999: Lactic Acid 1.9 11/07/16 2000: Anion Gap 8, Estimated GFR > 60, BUN/Creatinine Ratio 18.6 11/07/16 1800: Sodium Cancelled, Potassium Cancelled, Chloride Cancelled, Carbon Dioxide Cancelled, Anion Gap Cancelled, BUN Cancelled, Creatinine Cancelled, BUN/ Creatinine Ratio Cancelled 11/07/16 1352: Urine Color YEL, Urine Clarity CLEAR, Urine pH 7.5, Ur Specific [place] 1.010, Urine Protein NEG, Urine Ketones NEG, Urine Nitrite NEG, Urine Bilirubin NEG, Urine Urobilinogen 0.2, Ur Leukocyte Esterase NEG, Ur Microscopic EXAM NOT REQUIRED, Urine Hemoglobin NEG, Urine Glucose NEG 11/07/16 1352: Urine Osmolality 227 L, Ur Random Creatinine 29.6, Ur Random Sodium 33, Ur Random Potassium 50.1, Fraction Sodium Excret 0.5 11/07/16 1351: Lactic Acid 1.4 11/07/16 1351: Anion Gap 8, Estimated GFR > 60, BUN/Creatinine Ratio 11.7, Serum Osmolality 273 L Microbiology 11/07 1352 URINE ROUT: Legionella Antigen - COMP 11/07 1352 URINE ROUT: Streptococcus pneumoniae Antigen (M - COMP 11/07 1142 LOWER RESP: Respiratory Culture - ORD 11/07 1142 LOWER RESP: Gram Stain - ORD Assessment/Plan Assessment: 61-year-old male with past medical history of COPD not on home oxygen, current active smoker, heavy alcohol user came in with chief complaint of worsening shortness of breath since last 2 weeks, failed outpatient treatment with azithromycin and prednisone, was started on Avelox at the urgent care clinic is here for worsening shortness of breath secondary to COPD exacerbation. Problem list: # COPD exacerbation vs pna # Leukocytosis # Oral thrush # Alcohol dependence # Lethargy most likely due to ativan # Hyponatremia # Hyperkalemia # HTN # COPD exacerbation vs pna # Leukocytosis # Oral thrush - Noted inc in wbc from 18.1 to 20.5 on 11/08, leukocytosis most likely due to steroids use - negative urine legionella and s pneumo - Chest x-ray did not show any acute cardiac pulmonary findings. - Blood cultures are sent prior to receiving the antibiotics however patient has been on antibiotics prior to admission. * Continue moxifloxacin day 11/17 * solumedrol changed to 40 q12 * Appreciate pulm input (Dr. Warren) * follow sputum cx and bc X2 * Continue nystatin * Pt takes breo at home, don't order symbicort inpatient, can consider adding spiriva * incentive spirometry, TRC # Alcohol dependence - Patient has been drinking since 19 years old, was sober for 15 years in between started again for last 2 to 3 years, 6 beers daily - Last drink was 11/06 night - Serum alcohol on admission < 10 * Ativan PRN per CIWA # Lethargy most likely due to ativan - 11/08 am - He was alert but would doze off intermittently during our conversation. ABG checked, not indicative of CO2 retention. * Scheduled ativan was discontinued as it is most likely the cause of his lethargy. * will keep prn ativan per ciwa. # Hyponatremia (improving with IVF) - baseline 130 - 119 on admission. Patient has history of heavy drinking and the hyponatremia most likely secondary to beer potomania * Follow na level # Hyperkalemia (resolved) - was 5.6 on admission, down to 4.6 with kayexelate * Follow K level # Hypertension - In the ED, blood pressure was found to be 201/109 which came down to 150/90 without meds Regular diet DVT prophylaxis with Lovenox. Patient is full code Problem List: 1. COPD exacerbation 2. ETOH abuse Pain Ratin Pain Location: none Pain Goal: Pain 4 or less Pain Plan: none Tomorrow's Labs & Rationales: cbc for leukocytosis bep for hyponatremia DVT/Prophylaxis: mechanical, pharmacological
--- NOTE | 2016-11-08 08:18 | PN- Pulmonary ---
See Addendum Subjective HPI/Critical Care Issues: pt seen and examined 92% on 2LNC afebrile feeling better wbc 20.5 sodium improved to 126 Objective Current Medications: Current Medications Sig/Omar Start time Last Medication Dose Route Stop Time Status Admin Albuterol Sulfate 3 ML EVERY 4 HRS/AWAKE 11/08 1999 AC 11/08 INH 0812 Albuterol Sulfate 3 ML ONCE ONE 11/07 0930 DC 11/07 INH 11/07 0931 0935 Azithromycin 500 MG ONCE ONE 11/07 1115 DC 11/07 Sodium Chloride 250 ML IV 11/07 1214 1220 Ceftriaxone Sodium 0 .STK-MED ONE 11/07 1132 DC .ROUTE Ceftriaxone Sodium 1,000 MG ONCE ONE 11/07 1115 DC 11/07 IV 11/07 1116 1148 Enoxaparin Sodium 40 MG DAILY 11/07 1138 AC 11/07 SC 1350 Ipratropium [place] 2.5 ML EVERY 4 HRS/AWAKE 11/08 1999 AC 11/08 INH 0812 Ipratropium [place] 2.5 ML ONCE ONE 11/07 0930 DC 11/07 INH 11/07 0931 0935 Lorazepam 0 Q1P PRN 11/08 0300 AC IV Lorazepam 0 .STK-MED ONE 11/07 1428 DC PO Lorazepam 0 Q1P PRN 11/07 1330 DC IV Lorazepam 2 MG Q6 11/07 1326 DC 11/08 PO 0555 Methylprednisolone 40 MG Q8 11/07 1400 AC 11/08 IV 11/11 0601 0555 Methylprednisolone 0 .STK-MED ONE 11/07 1131 DC .ROUTE Methylprednisolone 125 MG ONCE ONE 11/07 1115 DC 11/07 IV 11/07 1116 1148 Moxifloxacin HCl 400 MG DAILY 11/07 1223 AC 11/07 PO 1350 Nystatin 5 ML 4 TIMES/DAY 11/07 2200 AC 11/07 PO 2346 Sodium Chloride 1,000 ML Q13H 11/07 1445 AC 11/08 IV 11/08 1344 0356 Sodium Chloride 1,000 ML ONCE ONE 11/07 1100 DC 11/07 IV 11/07 2059 1123 Sodium Polystyrene 0 .STK-MED ONE 11/07 1349 DC Sulfonate .ROUTE Sodium Polystyrene 60 ML ONCE ONE 11/07 1330 DC 11/07 Sulfonate PO 11/07 1331 1350 Vital Signs & I&O Last 24 Hrs of Vitals and I&O: Vital Signs Date Time Temp Pulse Resp B/P B/P Pulse O2 O2 Flow FiO2 Mean Ox Delivery Rate 11/08 0814 92 Nasal 2.0L Cannula 11/08 0621 97.7 92 22 142/82 95 Nasal 2.0L Cannula 11/08 0202 98.1 83 24 130/82 96 Nasal 2.0L Cannula 11/08 0000 94 Nasal 2.0L Cannula 11/07 2220 97.8 88 18 154/80 96 Nasal 3.0L Cannula 11/07 1701 Nasal 3.0L Cannula 11/07 1558 94 Nasal 2.0L Cannula 11/07 1551 98.0 97 20 138/72 95 Nasal 3.0L Cannula 11/07 1536 97.4 88 20 134/75 92 Nasal 2.0L Cannula 11/07 1415 94 20 152/82 11/07 1242 97 18 152/82 92 Nasal 3.0L Cannula 11/07 1228 97.1 94 18 144/69 11/07 0946 150/90 11/07 0935 98 Nasal 2.0L Cannula 11/07 0930 93 Nasal 2.0L Cannula 11/07 0915 97.5 118 18 201/109 92 Room Air Intake & Output 11/08 1600 11/08 0800 11/08 0000 Intake Total 670 Output Total 400 0 Balance -400 670 Intake, IV 430 Intake, Oral 240 Number 0 Bowel Movements Output, Urine 400 0 Exam Other Physical Findings: Gen - alert and awake HEENT - NCAT CVS - S1, S2, no murmurs, rubs or gallops Lungs - prolonged end expiratory phase Abdomen - soft, non-tender, bs+ Ext - no edema, no cyanosis Results Last 24 Hrs of Lab Results: Laboratory Tests 11/08/16 0400: Anion Gap 6, Estimated GFR > 60, BUN/Creatinine Ratio 20.0, CBC w Diff NO MAN DIFF REQ, RBC 4.59 L, MCV 96.2 H, MCH 32.5 H, RDW 13.8, MPV 5.6 L, Gran % 94.6 H, Lymphocytes % 3.5 L, Monocytes % 1.9, Eosinophils % 0, Basophils % 0 L, Absolute Granulocytes 19.4 H, Absolute Lymphocytes 0.7 L, Absolute Monocytes 0.4, Absolute Eosinophils 0, Absolute Basophils 0, PUBS MCHC 33.8 11/07/161999: Lactic Acid 1.9 11/07/161999: Anion Gap 8, Estimated GFR > 60, BUN/Creatinine Ratio 18.6 11/07/16 1800: Sodium Cancelled, Potassium Cancelled, Chloride Cancelled, Carbon Dioxide Cancelled, Anion Gap Cancelled, BUN Cancelled, Creatinine Cancelled, BUN/ Creatinine Ratio Cancelled 11/07/16 1352: Urine Color YEL, Urine Clarity CLEAR, Urine pH 7.5, Ur Specific [place] 1.010, Urine Protein NEG, Urine Ketones NEG, Urine Nitrite NEG, Urine Bilirubin NEG, Urine Urobilinogen 0.2, Ur Leukocyte Esterase NEG, Ur Microscopic EXAM NOT REQUIRED, Urine Hemoglobin NEG, Urine Glucose NEG 11/07/16 1352: Urine Osmolality 227 L, Ur Random Creatinine 29.6, Ur Random Sodium 33, Ur Random Potassium 50.1, Fraction Sodium Excret 0.5 11/07/16 1351: Lactic Acid 1.4 11/07/16 1351: Anion Gap 8, Estimated GFR > 60, BUN/Creatinine Ratio 11.7, Serum Osmolality 273 L 11/07/16 0950: Anion Gap 11, Estimated GFR > 60, BUN/Creatinine Ratio 12.0, Glucose 98, Serum Osmolality 263 L, Lactic Acid 1.4, Calcium 9.0, Total Bilirubin 0.7, AST 40, ALT 42, Alkaline Phosphatase 85, Total Protein 6.8, Albumin 3.8, Globulin 3.0, Albumin/Globulin Ratio 1.3, CBC w Diff MAN DIFF ORDERED, RBC 5.34, MCV 94.4 H, MCH 32.2 H, RDW 13.8, MPV 5.5 L, Gran % 92.0 H, Lymphocytes % 4.8 L, Monocytes % 2.7, Eosinophils % 0.1, Basophils % 0.4, Absolute Granulocytes 16.6 H, Absolute Lymphocytes 0.9 L, Absolute Monocytes 0.5, Absolute Eosinophils 0, Absolute Basophils 0.1, Platelet Estimate INCREASED, Poikilocytosis 1+, Anisocytosis 1+, PUBS MCHC 34.1, Serum Alcohol < 10.0 Impression/Plan Impression/Plan Impression/Plan: Impression 61 year old man * COPD exacerbation, possible underlying bronchitis and smoking related lung disease * hyponatremia with a likely component of alcoholism * healing rib fractures, per pt had an accidental fall, however no symptoms * pulmonary nodules Plan - TRC/Nebs - incentive spirometry - reduce to solumedrol 40mg iv q12h - complete already started Avelox course of 7 days - takes BREO at home (do not order symbicort inpatient) - can add spiriva to regimen as long as no contraindications to anti- cholingergis (glaucoma, prostatic issues) - hyponatremia workup per primary team, urine and serum osm, etc - drinking and smoking cessation counseling - monitor on ciwa - outpatient pulmonary nodule follow up - DVT prophylaxis at all times
--- NOTE | 2016-11-08 08:40 | NUR ---
NURSING NOTE: PT FOUND ON 3L NC AT CHANGE OF SHIFT REPORT. PT DENIES SHORTNESS OF BREATH, NON PROD COUGH NOTED. PT GIVEN TREATMENT BY R.T ABGS DONE PER MD ORDER. BED ALARM IN PLACE, CONT TO MONITOR.
--- NOTE | 2016-11-08 20:34 | NUR ---
INFORMED MD # [id number] OF PT'S BS OF 292, HR 111, CIWA 6. WILL CONTINUE TO MONITOR.
[2016-11-09] VITALS (11 sets, daily range): BP systolic 124–150; BP diastolic 32–82
[2016-11-09 08:06] LABS: ABSOLUTE BASOPHIL COUNT 0 /CUMM (0.0-0.2); ABSOLUTE EOSINOPHIL COUNT 0 /CUMM (0.0-0.7); ABSOLUTE GRANULOCYTE CT 16.9 /CUMM (1.4-6.5); ABSOLUTE LYMPH COUNT 1.4 /CUMM (1.2-3.4); BASOPHIL % 0.1 % (0.0-2.0); EOSINOPHIL % 0.1 % (0-5); GRANULOCYTE % 87.4 % (42.2-75.2); HEMATOCRIT 44.3 % (42-52); MEAN CORPUSCULAR HGB 32.5 PG (27.0-31.0); MEAN CORPUSCULAR HGB CONC 33.9 G/DL (33.0-37.0); MEAN PLATELET VOLUME 5.8 FL (7.4-10.4); PLATELET COUNT 392 /CUMM (130-400); RBC DISTRIBUTION WIDTH 13.4 % (11.5-14.5); RED BLOOD CELL CT 4.61 /CUMM (4.70-6.10)
--- NOTE | 2016-11-09 08:14 | PN- Housestaff ---
VICKEY ALVAREZ,COSTA 11/09/16 0814: Subjective Follow-up For: COPD exacerbation alcohol withdrawal hyponatremia hyperkalemia htn Subjective: Patient seen and examined at bedside. Alert, awake, and oreinted x 3 this morning. Sitting comfortably in bed with no new complaints. Denies any dsypnea. Still has some cough but improving. Currently satting well on 2 liters. Denies any f/c, chest pain, palpitations, dizziness/lightheadedness, abdominal pain, n/ v/c/d. No events reported overnight. Review of Systems Constitutional: Reports: see HPI. Objective Last 24 Hrs of Vital Signs/I&O Vital Signs Date Time Temp Pulse Resp B/P B/P Pulse O2 O2 Flow FiO2 Mean Ox Delivery Rate 11/09 0831 93 Nasal 2.0L Cannula 11/09 0600 97.7 69 18 140/82 94 Nasal 2.0L Cannula 11/09 0200 98.1 98 18 124/60 90 Nasal 2.0L Cannula 11/09 0000 90 Nasal 2.0L Cannula 11/08 2200 98.1 111 16 138/62 90 Nasal 2.0L Cannula 11/08 2009 94 Nasal 2.0L Cannula 11/08 2000 98.1 111 16 138/62 11/08 1800 98.5 97 20 128/70 11/08 1631 89 Room Air 11/08 1600 98.0 998 20 128/66 11/08 1600 96 Nasal 3.0L Cannula 11/08 1346 97.9 90 20 140/76 95 Nasal 3.0L Cannula Intake & Output 11/09 1600 11/09 0800 11/09 0000 Intake Total 300 600 Output Total 325 450 Balance -25 150 Intake, Oral 300 600 Output, Urine 325 450 Physical Exam General Appearance: Alert, Cooperative, No Acute Distress Other Physical Findings: Cardiovascular: Regular Rate, Normal S1, Normal S2 Lungs: diffuse decreased air entry Abdomen: Normal Bowel Sounds, Soft, No Tenderness Extremities: No Edema Current Medications: Current Medications Sig/Omar Start time Last Medication Dose Route Stop Time Status Admin Albuterol Sulfate 3 ML EVERY 4 HRS/AWAKE 11/07 INH 0828 Enoxaparin Sodium 40 MG DAILY 11/07 1138 AC 11/08 SC 1019 Ipratropium [place] 2.5 ML EVERY 4 HRS/AWAKE 11/08 1999 04/29 INH 0828 Lorazepam 0 Q1P PRN 11/08 0300 AC IV Methylprednisolone 40 MG Q12H 11/08 1800 AC 11/09 IV 11/13 0601 0517 Methylprednisolone 40 MG Q12 11/08 1000 DC IV 11/12 2201 Methylprednisolone 40 MG Q8 11/07 1400 DC 11/08 IV 11/11 0601 0555 Moxifloxacin HCl 400 MG DAILY 11/07 1223 AC 11/08 PO 1019 Nystatin 5 ML 4 TIMES/DAY 11/07 2200 AC 11/08 PO 1712 Sodium Chloride 1,000 ML Q13H 11/07 1445 DC 11/08 IV 11/08 1344 0356 Last 24 Hrs of Lab/Gage Results Last 24 Hrs of Labs/Mics: Laboratory Tests 11/09/16 0620: Anion Gap 9, Estimated GFR > 60, BUN/Creatinine Ratio 21.7, CBC w Diff Pending, WBC Pending, RBC Pending, Hgb Pending, Hct Pending, MCV Pending, MCH Pending, RDW Pending, Plt Count Pending, MPV Pending, Gran % Pending, Lymphocytes % Pending, Monocytes % Pending, Eosinophils % Pending, Basophils % Pending, Absolute Granulocytes Pending, Absolute Lymphocytes Pending, Absolute Monocytes Pending, Absolute Eosinophils Pending, Absolute Basophils Pending, PUBS MCHC Pending Assessment/Plan Assessment: 61-year-old male with past medical history of COPD not on home oxygen, current active smoker, heavy alcohol user came in with chief complaint of worsening shortness of breath since last 2 weeks, failed outpatient treatment with azithromycin and prednisone, was started on Avelox at the urgent care clinic is here for worsening shortness of breath secondary to COPD exacerbation. Problem list: # COPD exacerbation vs pna # Leukocytosis # Oral thrush # Alcohol dependence # Lethargy most likely due to ativan # Hyponatremia # Hyperkalemia # HTN # COPD exacerbation vs pna - negative urine legionella and s pneumo - Chest x-ray did not show any acute cardiac pulmonary findings. - Blood cultures are sent prior to receiving the antibiotics however patient has been on antibiotics prior to admission. * Continue moxifloxacin day 6 * Transition IV Solumedrol to PO prednisone 60mg PO daily * Appreciate pulm input (Dr. Warren) * Follow sputum cx and bc x 2 - NGTD * Pt takes breo at home, don't order symbicort inpatient, can consider adding spiriva * Incentive spirometry, TRC # Alcohol dependence - Patient has been drinking since 19 years old, was sober for 15 years in between started again for last 2 to 3 years, 6 beers daily - Last drink was 11/06 night - Serum alcohol on admission < 10 * Cont Ativan PRN per CIWA # Lethargy most likely due to ativan - 11/08 am - He was alert but would doze off intermittently during our conversation. ABG checked, not indicative of CO2 retention. * Scheduled ativan was discontinued as it is most likely the cause of his lethargy. * will keep prn ativan per ciwa. # Hyponatremia (improving with IVF) - baseline 130 - 119 on admission. Patient has history of heavy drinking and the hyponatremia most likely secondary to beer potomania * Follow Na level until normalization - improved to 129 today # Hyperkalemia (resolved) - was 5.6 on admission, down to 4.6 with kayexelate * Follow K level - 4.2 today # Oral thrush * Nystatin suspension # Hypertension - In the ED, blood pressure was found to be 201/109 which came down to 150/90 without meds Regular diet DVT prophylaxis with Lovenox. Patient is full code Problem List: 1. Hyponatremia 2. ETOH abuse 3. COPD (chronic obstructive pulmonary disease) 4. Acute chest wall pain 5. COPD exacerbation 6. Pancreatitis Pain Ratin Pain Location: 0 Pain Goal: Remain pain free Pain Plan: Mild pathway Tomorrow's Labs & Rationales: cbc for leukocytosis bep for hyponatremia CHAPARRO CARTY MD 11/09/16 1111: Attending MD Review Statement Attending Statement Attending MD Statement: examined this patient, discuss w/resident/PA/LONE LEAD LINEMAN, agreed w/resident/PA/LONE LEAD LINEMAN, reviewed EMR data (avail), discussed with nursing, discussed with case mgmt Attending Assessment/Plan: 61-year-old male with known COPD here with acute hypoxemic respiratory failure and a COPD exacerbation. He is now on by mouth prednisone with the plan for taper. We are titrating his oxygen as well. He is on moxifloxacin per pulmonary and will complete the antibiotic course. Has persistent leukocytosis but that's probably also secondary to steroids. There is a component of alcoholism with an accidental fall and rib fracture and hypovolemic hyponatremia that's improving .
[2016-11-09 09:16] LABS: WHITE BLOOD CELL COUNT 19.3 /CUMM (4.8-10.8)
[2016-11-09] MEDS ORDERED: PREDNISONE10 M2 PO (11:22)
[2016-11-09] MEDS ORDERED: NYSTATIN100000 UNI PO (11:22)
[2016-11-09] MEDS ORDERED: MOXIFLOXACIN H400 M2 PO (11:23)
--- NOTE | 2016-11-09 11:29 | Patient Discharge Instructions ---
Discharge Instructions General Discharge Information You were seen/treated for: SHORTNESS OF BREATH COPD EXACERBATION Special Instructions: PLEASE F/U WITH YOUR PCP IN 1 WEEK PLEASE F/U WITH DR WILKERSON IN 1 WEEK Acute Coronary Syndrome Inclusion Criteria At DC or during hospital stay patient has or had the following: ACS DIAGNOSIS No Discharge Core Measures Meds if any: Prescribed or Continued at Discharge Meds if any: NOT Prescribed or Continued at Discharge Congestive Heart Failure Inclusion Criteria At DC or during hospital stay patient has or had the following: CHF DIAGNOSIS No Discharge Core Measures Meds if any: Prescribed or Continued at Discharge Meds if any: NOT Prescribed or Continued at Discharge Cerebrovascular accident Inclusion Criteria At DC or during hospital stay patient has or had the following: CVA/TIA Diagnosis No Discharge Core Measures Meds if any: Prescribed or Continued at Discharge Meds if any: NOT Prescribed or Continued at Discharge Venous thromboembolism Inclusion Criteria VTE Diagnosis No VTE Type NONE VTE Confirmed by (Test) NONE Discharge Core Measures - Per Current guidelines, there needs to be overlap - treatment for the first 5 days of Warfarin therapy. - If discharged on Warfarin prior to 5 days of - overlap therapy, the patient will need to be - assessed for post discharge needs including - *Post discharge parental anticoagulation - *Warfarin and/or parental anticoagulation education - *Follow up date to check INR post discharge At least 5 days overlap therapy as Inpatient No Meds if any: Prescribed or Continued at Discharge Note: Overlap Therapy is Warfarin and Anticoagulant Meds if any: NOT Prescribed or Continued at Discharge
--- NOTE | 2016-11-09 13:43 | PN- Pulmonary ---
Subjective HPI/Critical Care Issues: Patient seen and examined at bedside. Alert, awake, and oreinted x 3 this morning. Sitting comfortably in bed with no new complaints. Denies any dsypnea. Still has some cough but improving. Currently satting well on 2 liters. Denies any f/c, chest pain, palpitations, dizziness/lightheadedness, abdominal pain, n/ v/c/d. No events reported overnight. Review of Systems Constitutional: Reports: see HPI. Objective Current Medications: Current Medications Sig/Omar Start time Last Medication Dose Route Stop Time Status Admin Albuterol Sulfate 3 ML EVERY 4 HRS/AWAKE 11/08 1999 AC 11/09 INH 1234 Enoxaparin Sodium 40 MG DAILY 11/07 1138 AC 11/09 SC 0932 Ipratropium [place] 2.5 ML EVERY 4 HRS/AWAKE 11/08 1999 AC 11/09 INH 1234 Lorazepam 0 Q1P PRN 11/08 0300 AC IV Methylprednisolone 40 MG Q12H 11/08 1800 DC 11/09 IV 11/13 0601 0517 Moxifloxacin HCl 400 MG DAILY 11/07 1223 AC 11/09 PO 11/10 2300 0927 Nystatin 5 ML 4 TIMES/DAY 11/07 2200 AC 11/09 PO 1258 Prednisone 60 MG DAILY 11/10 1000 AC PO 11/11 1001 Prednisone 20 MG ONCE ONE 11/09 1145 DC 11/09 PO 11/09 1146 1258 Prednisone 60 MG DAILY 11/09 1000 DC PO 11/10 1001 Sodium Chloride 1,000 ML Q13H 11/07 1445 DC 11/08 IV 11/08 1344 0356 Vital Signs & I&O Last 24 Hrs of Vitals and I&O: Laboratory Tests 11/09 11/08 0620 0810 Blood Gas pH (7.35 - 7.45 PH) 7.45 pCO2 (35 - 45 TORR) 36 pO2 (80 - 100 TORR) 65 L HCO3 (21 - 28 MEQ/L) 25 ABG O2 Sat (Measured) (>96.0 %) 92.0 L P-50 (Temp Corrected) N Carboxyhemoglobin (1.5 - 5.0 %) 1.1 L O2 Concentration % 3LPM O2 Delivery Method NC Chemistry Sodium (137 - 145 mmol/L) 129 L Potassium (3.5 - 5.1 mmol/L) 4.2 Chloride (98 - 107 mmol/L) 96 L Carbon Dioxide (22 - 30 mmol/L) 24 Anion Gap (5 - 16) 9 BUN (9 - 20 mg/dL) 13 Creatinine (0.7 - 1.2 mg/dL) 0.6 L Estimated GFR (>60 ml/min) > 60 BUN/Creatinine Ratio (7 - 25 %) 21.7 Hematology CBC w Diff NO MAN DIFF REQ WBC (4.8 - 10.8 /CUMM) 19.3 H RBC (4.70 - 6.10 /CUMM) 4.61 L Hgb (14.0 - 18.0 G/DL) 15.0 Hct (42 - 52 %) 44.3 MCV (80.0 - 94.0 FL) 96.0 H MCH (27.0 - 31.0 PG) 32.5 H RDW (11.5 - 14.5 %) 13.4 Plt Count (130 - 400 /CUMM) 392 MPV (7.4 - 10.4 FL) 5.8 L Gran % (42.2 - 75.2 %) 87.4 H Lymphocytes % (20.5 - 51.1 %) 7.3 L Monocytes % (1.7 - 9.3 %) 5.1 Eosinophils % (0 - 5 %) 0.1 Basophils % (0.0 - 2.0 %) 0.1 Absolute Granulocytes (1.4 - 6.5 /CUMM) 16.9 H Absolute Lymphocytes (1.2 - 3.4 /CUMM) 1.4 Absolute Monocytes (0.10 - 0.60 /CUMM) 1.0 H Absolute Eosinophils (0.0 - 0.7 /CUMM) 0 Absolute Basophils (0.0 - 0.2 /CUMM) 0 PUBS MCHC (33.0 - 37.0 G/DL) 33.9 Miscellaneous Phlebotomy Draw Site RIGHT RADIAL 11/08 11/07 11/07 0400 1999 1999 Chemistry Sodium (137 - 145 mmol/L) 126 L 121 L Potassium (3.5 - 5.1 mmol/L) 4.6 4.7 Chloride (98 - 107 mmol/L) 93 L 88 L Carbon Dioxide (22 - 30 mmol/L) 26 26 Anion Gap (5 - 16) 6 8 BUN (9 - 20 mg/dL) 12 13 Creatinine (0.7 - 1.2 mg/dL) 0.6 L 0.7 Estimated GFR (>60 ml/min) > 60 > 60 BUN/Creatinine Ratio (7 - 25 %) 20.0 18.6 Lactic Acid (0.7 - 2.1 mmol/L) 1.9 Hematology CBC w Diff NO MAN DIFF REQ WBC (4.8 - 10.8 /CUMM) 20.5 H RBC (4.70 - 6.10 /CUMM) 4.59 L Hgb (14.0 - 18.0 G/DL) 14.9 Hct (42 - 52 %) 44.1 MCV (80.0 - 94.0 FL) 96.2 H MCH (27.0 - 31.0 PG) 32.5 H RDW (11.5 - 14.5 %) 13.8 Plt Count (130 - 400 /CUMM) 436 H MPV (7.4 - 10.4 FL) 5.6 L Gran % (42.2 - 75.2 %) 94.6 H Lymphocytes % (20.5 - 51.1 %) 3.5 L Monocytes % (1.7 - 9.3 %) 1.9 Eosinophils % (0 - 5 %) 0 Basophils % (0.0 - 2.0 %) 0 L Absolute Granulocytes (1.4 - 6.5 /CUMM) 19.4 H Absolute Lymphocytes (1.2 - 3.4 /CUMM) 0.7 L Absolute Monocytes (0.10 - 0.60 /CUMM) 0.4 Absolute Eosinophils (0.0 - 0.7 /CUMM) 0 Absolute Basophils (0.0 - 0.2 /CUMM) 0 PUBS MCHC (33.0 - 37.0 G/DL) 33.8 11/07 11/07 11/07 1800 1352 1352 Chemistry Sodium Cancelled Potassium Cancelled Chloride Cancelled Carbon Dioxide Cancelled Anion Gap Cancelled BUN Cancelled Creatinine Cancelled BUN/Creatinine Ratio Cancelled Urines Urine Color (YEL,AMB,STR) YEL Urine Clarity (CLEAR) CLEAR Urine pH (5.0 - 8.0) 7.5 Ur Specific [place] (1.001 - 1.035) 1.010 Urine Protein (NEG,<30 MG/DL) NEG Urine Ketones (NEG) NEG Urine Nitrite (NEG) NEG Urine Bilirubin (NEG) NEG Urine Urobilinogen (0.1 - 1.0 EU/dl) 0.2 Ur Leukocyte Esterase (NEG) NEG Ur Microscopic EXAM NOT REQUIRED Urine Hemoglobin (NEG) NEG Urine Osmolality (300 - 1000 MOSM/KG) 227 L Ur Random Creatinine (mg/dL) 29.6 Ur Random Sodium (30 - 90 mmol/L) 33 Ur Random Potassium (mmol/L) 50.1 Fraction Sodium Excret (<1% %) 0.5 Urine Glucose (N MG/DL) NEG 11/07 11/07 1351 1351 Chemistry Sodium (137 - 145 mmol/L) 123 L Potassium (3.5 - 5.1 mmol/L) 5.6 H Chloride (98 - 107 mmol/L) 88 L Carbon Dioxide (22 - 30 mmol/L) 27 Anion Gap (5 - 16) 8 BUN (9 - 20 mg/dL) 7 L Creatinine (0.7 - 1.2 mg/dL) 0.6 L Estimated GFR (>60 ml/min) > 60 BUN/Creatinine Ratio (7 - 25 %) 11.7 Serum Osmolality (285 - 295 MOSM/KG) 273 L Lactic Acid (0.7 - 2.1 mmol/L) 1.4 Microbiology Date/Time Procedure - Status Source Growth 11/07 1352 Legionella Antigen - COMP URINE ROUT 11/07 1352 Streptococcus pneumoniae Antigen (M - COMP URINE ROUT 11/07 1142 Respiratory Culture - CAN LOWER RESP Cancelled: NO SPUTUM COLLECTED FOR MICRO DEPT 11/07 1142 Gram Stain - CAN LOWER RESP Cancelled: NO SPUTUM COLLECTED FOR MICRO DEPT 11/07 1025 Blood Culture - RES BLOOD 11/07 0950 Blood Culture - RES BLOOD Vital Signs Date Time Temp Pulse Resp B/P B/P Pulse O2 O2 Flow FiO2 Mean Ox Delivery Rate 11/09 1200 97.7 69 18 140/82 11/09 1032 98.1 102 20 141/79 94 Nasal 2.0L Cannula 11/09 0831 93 Nasal 2.0L Cannula 11/09 0800 94 Nasal 2.0L Cannula 11/09 0600 97.7 69 18 140/82 94 Nasal 2.0L Cannula 11/09 0200 98.1 98 18 124/60 90 Nasal 2.0L Cannula 11/09 0000 90 Nasal 2.0L Cannula 11/08 2200 98.1 111 16 138/62 90 Nasal 2.0L Cannula 11/08 2009 94 Nasal 2.0L Cannula 11/09 1999 98.1 111 16 138/62 11/08 1800 98.5 97 20 128/70 11/08 1631 89 Room Air 11/08 1600 98.0 998 20 128/66 11/08 1600 96 Nasal 3.0L Cannula 11/08 1346 97.9 90 20 140/76 95 Nasal 3.0L Cannula Intake & Output 11/09 1600 11/09 0800 11/09 0000 Intake Total 300 600 Output Total 325 450 Balance -25 150 Intake, Oral 300 600 Output, Urine 325 450 Patient 150 lb Weight Impression/Plan Impression/Plan Impression/Plan: Physical Exam General Appearance: Alert, Cooperative, No Acute Distress Other Physical Findings: Cardiovascular: Regular Rate, Normal S1, Normal S2 Lungs: diffuse decreased air entry Abdomen: Normal Bowel Sounds, Soft, No Tenderness Extremities: No Edema COPD exacerbation alcohol withdrawal hyponatremia hyperkalemia htn Rib fractures Lung nodule REC COnt oxygen and wean nebs PO steroids Cont inhalers will follow
[2016-11-10] VITALS (11 sets, daily range): BP systolic 124–144; BP diastolic 70–80
[2016-11-10 08:10] LABS: ABSOLUTE BASOPHIL COUNT 0 /CUMM (0.0-0.2); ABSOLUTE EOSINOPHIL COUNT 0.1 /CUMM (0.0-0.7); ABSOLUTE GRANULOCYTE CT 11.1 /CUMM (1.4-6.5); ABSOLUTE LYMPH COUNT 2.6 /CUMM (1.2-3.4); ABSOLUTE MONOCYTE COUNT 1.3 /CUMM (0.10-0.60); BASOPHIL % 0.1 % (0.0-2.0); EOSINOPHIL % 0.3 % (0-5); GRANULOCYTE % 73.8 % (42.2-75.2); HEMATOCRIT 46.2 % (42-52); MEAN CORPUSCULAR HGB 32.3 PG (27.0-31.0); MEAN CORPUSCULAR VOLUME 95.2 FL (80.0-94.0); MEAN PLATELET VOLUME 5.9 FL (7.4-10.4); PLATELET COUNT 391 /CUMM (130-400); RBC DISTRIBUTION WIDTH 13.8 % (11.5-14.5); RED BLOOD CELL CT 4.85 /CUMM (4.70-6.10); WHITE BLOOD CELL COUNT 15.1 /CUMM (4.8-10.8)
--- NOTE | 2016-11-10 08:59 | PN- Pulmonary ---
Subjective HPI/Critical Care Issues: Doing better afebrile Patient says his back to baseline O2 sat 96% No chest pain Objective Current Medications: Current Medications Sig/Omar Start time Last Medication Dose Route Stop Time Status Admin Albuterol Sulfate 3 ML EVERY 4 HRS/AWAKE 11/08 1999 AC 11/09 INH 2055 Enoxaparin Sodium 40 MG DAILY 11/07 1138 AC 11/09 SC 0932 Ipratropium [place] 2.5 ML EVERY 4 HRS/AWAKE 11/08 1999 AC 11/09 INH 2055 Lorazepam 0 Q1P PRN 11/08 0300 AC IV Methylprednisolone 40 MG Q12H 11/08 1800 DC 11/09 IV 11/13 0601 0517 Moxifloxacin HCl 400 MG DAILY 11/07 1223 AC 11/09 PO 11/10 2300 0927 Nystatin 5 ML 4 TIMES/DAY 11/07 2200 AC 11/09 PO 2153 Prednisone 60 MG DAILY 11/10 1000 AC PO 11/11 1001 Prednisone 20 MG ONCE ONE 11/09 1145 DC 11/09 PO 11/09 1146 1258 Prednisone 60 MG DAILY 11/09 1000 DC PO 11/10 1001 Vital Signs & I&O Last 24 Hrs of Vitals and I&O: Vital Signs Date Time Temp Pulse Resp B/P B/P Pulse O2 O2 Flow FiO2 Mean Ox Delivery Rate 11/10 0800 96 Nasal 2.0L Cannula 11/10 0600 98.3 80 18 132/80 93 Nasal 2.0L Cannula 11/10 0200 72 18 130/76 92 Nasal 2.0L Cannula 11/10 0000 Nasal 2.0L Cannula 11/09 2200 98.1 79 18 138/80 93 Nasal 2.0L Cannula 11/09 1800 97.7 100 20 146/80 11/09 1600 97.7 100 20 146/80 11/09 1552 93 Nasal 2.0L Cannula 11/09 1449 98.1 112 20 150/76 93 Nasal 2.0L Cannula 11/09 1400 98.1 69 20 141/32 11/09 1200 97.7 102 18 141/32 11/09 1032 98.1 102 20 141/79 94 Nasal 2.0L Cannula 11/09 1000 97.7 69 18 140/82 Intake & Output 11/10 1600 11/10 0800 11/10 0000 Intake Total 240 450 Output Total Balance 240 450 Intake, Oral 240 450 Laboratory Tests 11/10 11/09 0640 0620 Chemistry Sodium (137 - 145 mmol/L) 127 L 129 L Potassium (3.5 - 5.1 mmol/L) 4.2 4.2 Chloride (98 - 107 mmol/L) 93 L 96 L Carbon Dioxide (22 - 30 mmol/L) 27 24 Anion Gap (5 - 16) 6 9 BUN (9 - 20 mg/dL) 13 13 Creatinine (0.7 - 1.2 mg/dL) 0.6 L 0.6 L Estimated GFR (>60 ml/min) > 60 > 60 BUN/Creatinine Ratio (7 - 25 %) 21.7 21.7 Hematology CBC w Diff NO MAN DIFF REQ NO MAN DIFF REQ WBC (4.8 - 10.8 /CUMM) 15.1 H 19.3 H RBC (4.70 - 6.10 /CUMM) 4.85 4.61 L Hgb (14.0 - 18.0 G/DL) 15.7 15.0 Hct (42 - 52 %) 46.2 44.3 MCV (80.0 - 94.0 FL) 95.2 H 96.0 H MCH (27.0 - 31.0 PG) 32.3 H 32.5 H RDW (11.5 - 14.5 %) 13.8 13.4 Plt Count (130 - 400 /CUMM) 391 392 MPV (7.4 - 10.4 FL) 5.9 L 5.8 L Gran % (42.2 - 75.2 %) 73.8 87.4 H Lymphocytes % (20.5 - 51.1 %) 17.4 L 7.3 L Monocytes % (1.7 - 9.3 %) 8.4 5.1 Eosinophils % (0 - 5 %) 0.3 0.1 Basophils % (0.0 - 2.0 %) 0.1 0.1 Absolute Granulocytes (1.4 - 6.5 /CUMM) 11.1 H 16.9 H Absolute Lymphocytes (1.2 - 3.4 /CUMM) 2.6 1.4 Absolute Monocytes (0.10 - 0.60 /CUMM) 1.3 H 1.0 H Absolute Eosinophils (0.0 - 0.7 /CUMM) 0.1 0 Absolute Basophils (0.0 - 0.2 /CUMM) 0 0 PUBS MCHC (33.0 - 37.0 G/DL) 34.0 33.9 Microbiology Date/Time Procedure - Status Source Growth 11/07 1352 Legionella Antigen - COMP URINE ROUT 11/07 1352 Streptococcus pneumoniae Antigen (M - COMP URINE ROUT 11/07 1142 Respiratory Culture - CAN LOWER RESP Cancelled: NO SPUTUM COLLECTED FOR MICRO DEPT 11/07 1142 Gram Stain - CAN LOWER RESP Cancelled: NO SPUTUM COLLECTED FOR MICRO DEPT 11/07 1025 Blood Culture - RES BLOOD 11/07 0950 Blood Culture - RES BLOOD Impression/Plan Impression/Plan Impression/Plan: Physical Exam General Appearance: Alert, Cooperative, No Acute Distress Other Physical Findings: Cardiovascular: Regular Rate, Normal S1, Normal S2 Lungs: diffuse decreased air entry Abdomen: Normal Bowel Sounds, Soft, No Tenderness Extremities: No Edema COPD exacerbation, significant improvement alcohol withdrawal hyponatremia, sodium seems to be down today hyperkalemia resolved htn Rib fractures Lung nodule REC COnt oxygen and wean nebs PO steroids Cont inhalers will follow needs outpatient follow-up CT for lung nodule
[2016-11-10] MEDS ORDERED: MOXIFLOXACIN H400 M2 PO (09:33)
[2016-11-10] MEDS ORDERED: PREDNISONE10 M2 PO (09:34)
--- NOTE | 2016-11-10 10:02 | PN- Housestaff ---
NABEEL ALVAREZ,[facility] 11/10/16 0957: Subjective Follow-up For: COPD exacerbation hypnatremia Subjective: Saw pt at bedside thsi AM. He had no overnight events or complaints. Had Blood sugar of 80 this AM. Given OJ went up to 118. Attempted to wean pt off O2 satted at 86-88. If dispo today will require home o2 2L continuous. Review of Systems Constitutional: Denies: chills, malaise. EENTM: Reports: no symptoms. Cardiovascular: Reports: no symptoms. Respiratory: Reports: no symptoms. Gastrointestinal: Reports: no symptoms. Genitourinary: Reports: no symptoms. Musculoskeletal: Reports: no symptoms. Objective Last 24 Hrs of Vital Signs/I&O Vital Signs Date Time Temp Pulse Resp B/P B/P Pulse O2 O2 Flow FiO2 Mean Ox Delivery Rate 11/10 1108 97.9 32 18 144/70 90 Nasal 1.0L Cannula 11/10 0900 95 Nasal 2.0L Cannula 11/10 0800 96 Nasal 2.0L Cannula 11/10 0600 98.3 80 18 132/80 93 Nasal 2.0L Cannula 11/10 0200 72 18 130/76 92 Nasal 2.0L Cannula 11/10 0000 Nasal 2.0L Cannula 11/09 2200 98.1 79 18 138/80 93 Nasal 2.0L Cannula 11/09 1800 97.7 100 20 146/80 11/09 1600 97.7 100 20 146/80 11/09 1552 93 Nasal 2.0L Cannula 11/09 1449 98.1 112 20 150/76 93 Nasal 2.0L Cannula 11/09 1400 98.1 69 20 141/32 11/09 1200 97.7 102 18 141/32 Intake & Output 11/10 1600 11/10 0800 11/10 0000 Intake Total 240 450 Output Total Balance 240 450 Intake, Oral 240 450 Physical Exam General Appearance: Alert, Oriented X3, Cooperative, No Acute Distress Skin: No Rashes, No Significant Lesion HEENT: Atraumatic, PERRLA, EOMI Neck: Supple Cardiovascular: Regular Rate, Normal S1, Normal S2, No Murmurs Lungs: Normal Air Movement Abdomen: Soft, No Tenderness Current Medications: Current Medications Sig/Omar Start time Last Medication Dose Route Stop Time Status Admin Albuterol Sulfate 3 ML EVERY 4 HRS/AWAKE 11/08 1999 AC 11/10 INH 0859 Enoxaparin Sodium 40 MG DAILY 11/07 1138 AC 11/10 SC 1021 Ipratropium [place] 2.5 ML EVERY 4 HRS/AWAKE 11/08 1999 AC 11/10 INH 0859 Lorazepam 0 Q1P PRN 11/08 0300 DC IV Moxifloxacin HCl 400 MG DAILY 11/07 1223 AC 11/10 PO 11/10 2300 1019 Nystatin 5 ML 4 TIMES/DAY 11/07 2200 AC 11/10 PO 1020 Prednisone 60 MG DAILY 11/10 1000 AC 11/10 PO 11/11 1001 1020 Prednisone 20 MG ONCE ONE 11/09 1145 DC 11/09 PO 11/09 1146 1258 Assessment/Plan Assessment: 61-year-old male with past medical history of COPD not on home oxygen, cont' smoking and etoh dependence with CC worsenign SOB since last 2 weeks and failed outpatient treatment on azithromycin and prednisone. PLAN # COPD exacerbation vs pna * negative urine legionella and s pneumo * Chest x-ray did not show any acute cardiac pulmonary findings. * Blood cultures are sent on admission. however patient has been on antibiotics prior to admission. * Continue Moxifloxacin (day 7); today last dose. * Transition IV Solumedrol to PO prednisone 60mg PO daily--> taper today * Appreciate pulm input (Dr. Warren) * Follow sputum cx and bc x 2 - NGTD * Pt takes breo at home, don't order symbicort inpatient, can consider adding spiriva * Incentive spirometry, TRC # Alcohol dependence: Patient has been drinking since 19 years old, was sober for 15 years in between started again for last 2 to 3 years, 6 beers daily. Last drink was 11/06 night. Serum alcohol on admission < 10. * Cont Ativan PRN per CIWA # Lethargy most likely due to ativan: 11/08 am - He was alert but would doze off intermittently during our conversation. ABG checked, not indicative of CO2 retention. * Scheduled ativan was discontinued as it is most likely the cause of his lethargy. * will keep prn ativan per ciwa. # Hyponatremia (improving with IVF): baseline 130--today at 127 * 119 on admission. Patient has history of heavy drinking and the hyponatremia most likely secondary to beer potomania. * Follow Na level until normalization # Hyperkalemia (resolved): was 5.6 on admission, down to 4.6 with kayexelate. WNL today * Follow K level # Oral thrush * Nystatin suspension # Hypertension: In the ED, blood pressure was found to be 201/109 which came down to 150/90 without meds. BP 132/80 THIS AM. Regular diet DVT prophylaxis with Lovenox. Patient is full code Problem List: 1. COPD exacerbation 2. COPD (chronic obstructive pulmonary disease) 3. ETOH abuse Pain Ratin Pain Location: none Pain Goal: Remain pain free Pain Plan: none Tomorrow's Labs & Rationales: cbc bep MACHELLE ALVAREZ,CHAPARRO 11/10/16 1158: Attending MD Review Statement Attending Statement Attending MD Statement: examined this patient, discuss w/resident/PA/LEAD RUBY [employer] RAILS DEVELOPER, agreed w/resident/PA/LEAD RUBY ON RAILS DEVELOPER, reviewed EMR data (avail), discussed with nursing Attending Assessment/Plan: Pt seen ambulating with the nurse. 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 I reassured him that we could possibly try tapering off the oxygen in 7-10 days and that follow-up with Dr. Warren the tooling mechanic will be aldana. He is 86% on room air at rest and 84% on ambulation. He is on a prednisone taper. He has his Breo inhaler at home and will send him out on a prednisone taper and home oxygen if it can be arranged for today with a note for work. Addendum - Pt felt dizzy after ambualtion and has resting and ambulatory tachycardia of 90-120. He also needed assistance from RN with ambualtion. Will hold off on dc and check EKG and follow closely.
[2016-11-11 06:52] VITALS: BP 160/90
--- NOTE | 2016-11-11 07:07 | Discharge Summary ---
Visit Information Visit Dates Admission Date: 11/07/16 Discharge Date: 11/11/16 Hospital Course Course Attending Physician: LEONOR NASH MD Primary Care Physician: PATY HER MD Hospital Course: 61-year-old male with past medical history of COPD not on home oxygen, current active smoker, heavy alcohol user came in with chief complaint of worsening shortness of breath since last 2 weeks, failed outpatient treatment with azithromycin and prednisone, was started on Avelox at the urgent care clinic is here for worsening shortness of breath most likely secondary to COPD exacerbation. He completed a total 7 day course of moxifloxacin. He also received steroids, and discharged on a long taper. Spiriva prescribed, breo to be continued at discharge. Pt will follow up with Dr. Wilkerson and Dr. Gonzalez for COPD and pulmonary nodule. Pt also came in with Na of 119, significantly lower than his baseline of 130. His sodium improved with IV NS, at discharge was 127. Due to concerns for alcohol withdrawal, scheduled ativan was ordered, and pt was found to be lethargic the next day, with ABG negative for hypercarbia. Ativan was then discontinued and pt did not require PRN ativan for alcohol withdrawal. His mental status improved. For more detailed hospital course, see below: Problem list: # COPD exacerbation vs pna # Leukocytosis # Oral thrush # Alcohol dependence # Lethargy most likely due to ativan # Hyponatremia # Hyperkalemia # HTN # COPD exacerbation vs pna # Leukocytosis # Oral thrush - Noted inc in wbc from 18.1 to 20.5 on 11/08, leukocytosis most likely due to steroids use - Negative urine legionella and s pneumo - Chest x-ray did not show any acute cardiac pulmonary findings. - Blood cultures are sent prior to receiving the antibiotics however patient has been on antibiotics prior to admission. * Completed 7 days of moxifloxacin * Solumedrol --> prednisone --> dc on long taper * Appreciate pulm input (Dr. Wilkerson) * bc X2 NGTD , sputum sample not obtainable * Continue nystatin * Continue breo and spiriva at dc * incentive spirometry, [facility] # Alcohol dependence - Patient has been drinking since 19 years old, was sober for 15 years in between started again for last 2 to 3 years, 6 beers daily - Last drink was 11/06 night - Serum alcohol on admission < 10 * Ativan PRN per CIWA (did not need) # Lethargy most likely due to ativan - 11/08 am - He was alert but would doze off intermittently during our conversation. ABG checked, not indicative of CO2 retention. * Scheduled ativan was discontinued as it is most likely the cause of his lethargy. Mental status improved # Hyponatremia , improved with NS - baseline 130 - 119 on admission. Patient has history of heavy drinking and the hyponatremia most likely secondary to beer potomania * 127 at discharge # Hyperkalemia (resolved) - was 5.6 on admission, down to 4.6 with kayexelate # Hypertension - In the ED, blood pressure was found to be 201/109 which came down to 150/90 without meds Regular diet DVT prophylaxis with Lovenox. Patient is full code Allergies: Coded Allergies: NO KNOWN ALLERGIES (05/29/16) Disposition Summary Disposition Principal Diagnosis: COPD exacerbation Additional Diagnosis: Hyponatremia Discharge Disposition: home or self care Discharge Instructions General Discharge Information Code Status: Full Code Patient's Diet: Regular diet Patient's Activity: As tolerated Follow-Up Instructions/Appts: You were seen/treated for: SHORTNESS OF BREATH COPD EXACERBATION Special Instructions: PLEASE F/U WITH YOUR PCP IN 1 WEEK PLEASE F/U WITH DR WILKERSON IN 1 WEEK Medications at Discharge Discharge Medications: Stop taking the following medications: Moxifloxacin HCl (Avelox) 400 MG TABLET ORAL Every Day Days = 2 Continue taking these medications: Fluticasone-Salmeterol (Advair 100-50 Diskus) 1 EACH BLST.W.DEV 1 Puff Inhale through mouth TWICE DAILY Qty = 1 Albuterol Sulfate (Proventil Hfa) 6.7 GM HFA.AER.AD 2 Puff Inhale through mouth Every 4 hours Qty = 1 Omeprazole (Omeprazole) 40 MG CAPSULE.DR 1 Capsule ORAL DAILY Qty = 30 Robitussin AC (Guaifenesin-Codeine Syrup) 200 MG-20 MG/10 ML LIQUID 10 Milliliters ORAL EVERY SIX HOURS NEEDED as needed for COUGH Qty = 240 Start taking the following new medications: Nystatin (Nystatin) 100,000 UNIT/ML ORAL.SUSP 5 Milliliters ORAL 4 TIMES A DAY as needed for YEAST INFECTION Qty = 2 No Refills Prednisone (Prednisone) 10 MG TABLET 0 ORAL See Instructions Qty = 40 No Refills Instructions: please take 50 mg daily until 11/13/16 then take 40 mg daily for the next 3 days then take 30 mg daily for the next 3 days then take 20 mg daily for the next 3 days then take 10 mg daily for the next 3 days Tiotropium [place] (Spiriva) 18 MCG CAP.W.DEV 1 Capsule Inhale through mouth DAILY Qty = 30 No Refills Copies To: ROSAMARIA ALVAREZ,MAC Bowen JR; RHEA ALVAREZ,TYRESE; TAINA ALVAREZ,PATY Cavazos Attending MD Review Statement Documenting Attending: CHARITY ALVAREZ,LEONOR
--- NOTE | 2016-11-11 07:07 | PN- Housestaff ---
LUIS ANGEL ALVAREZ,SILAS 11/11/16 0706: Subjective Follow-up For: copd exacerbation Subjective: pt completed abx course with moxifloxacin he was comfortably sitting in bed eating his breakfast this morning, offered no complains. leukocytosis improved. na stable at 127. will get repeat ambulatory o2 sat. pt might be dc home with o2. will be dc on pred taper. feels ready to be discharged today. Pt seems determined to quit smoking and drinking. Review of Systems Constitutional: Reports: see HPI. Objective Last 24 Hrs of Vital Signs/I&O Vital Signs Date Time Temp Pulse Resp B/P B/P Pulse O2 O2 Flow FiO2 Mean Ox Delivery Rate 11/11 0816 88 Room Air Room Air 11/11 0652 98.1 83 20 160/90 94 11/11 0000 49 Room Air Room Air 11/10 2215 97.6 91 18 132/80 94 Room Air 11/10 1800 97.8 82 18 124/70 11/10 1628 93 Room Air Room Air 11/10 1600 91.0 82 18 124/70 11/10 1418 97.8 100 18 124/80 91 Room Air 11/10 1400 97.8 82 18 124/70 11/10 1200 97.9 100 18 144/70 11/10 1108 97.9 82 18 144/70 90 Nasal 1.0L Cannula 11/10 1000 98.3 80 18 132/80 Intake & Output 11/11 1600 11/11 0800 05 0000 Intake Total 240 480 Output Total 300 Balance 240 180 Intake, Oral 240 480 Output, Urine 300 Physical Exam General Appearance: Alert, Oriented X3, Cooperative, No Acute Distress Skin: skin changes on the back due to scratching Cardiovascular: Regular Rate, Normal S1, Normal S2 Lungs: diminished breath sound diffusely Abdomen: Normal Bowel Sounds, Soft, No Tenderness Current Medications: Current Medications Sig/Omar Start time Last Medication Dose Route Stop Time Status Admin Albuterol Sulfate 3 ML EVERY 4 HRS/AWAKE 11/08 1999 AC 11/11 INH 0816 Docusate Sodium 100 MG DAILY 11/10 1650 AC 11/10 PO 1728 Enoxaparin Sodium 40 MG DAILY 11/07 1138 AC 11/10 SC 1021 Ipratropium [place] 2.5 ML EVERY 4 HRS/AWAKE 11/08 1999 AC 11/11 INH 0816 Lorazepam 0 Q1P PRN 11/08 0300 DC IV Moxifloxacin HCl 400 MG DAILY 11/07 1223 DC 11/10 PO 11/10 2300 1019 Nystatin 5 ML 4 TIMES/DAY 11/07 2200 AC 11/10 PO 2135 Polyethylene Glycol 17 GM DAILY PRN 11/10 1700 AC PO Prednisone 50 MG DAILY 11/11 1000 AC PO 11/12 1001 Prednisone 60 MG DAILY 11/10 1000 DC 11/10 PO 11/11 1001 1020 Senna/Docusate Sodium 2 TAB DAILY 11/10 1650 AC 11/10 PO 1728 Last 24 Hrs of Lab/Gage Results Last 24 Hrs of Labs/Mics: Laboratory Tests 11/11/16 0705: Anion Gap 6, Estimated GFR > 60, BUN/Creatinine Ratio 18.6, CBC w Diff NO MAN DIFF REQ, RBC 4.95, MCV 95.9 H, MCH 32.3 H, RDW 13.9, MPV 5.8 L, Gran % 64.6, Lymphocytes % 23.0, Monocytes % 11.5 H, Eosinophils % 0.8, Basophils % 0.1, Absolute Granulocytes 7.9 H, Absolute Lymphocytes 2.8, Absolute Monocytes 1.4 H, Absolute Eosinophils 0.1, Absolute Basophils 0, PUBS MCHC 33.6 Assessment/Plan Assessment: 61-year-old male with past medical history of COPD not on home oxygen, cont' smoking and etoh dependence with CC worsenign SOB since last 2 weeks and failed outpatient treatment on azithromycin and prednisone. PLAN # COPD exacerbation vs pna * negative urine legionella and s pneumo * Chest x-ray did not show any acute cardiac pulmonary findings. * Blood cultures are sent on admission. however patient has been on antibiotics prior to admission. * Completed 7 days of Moxifloxacin * Prednisone 50 mg PO daily starting today (taper 10 mg q3 days) * Appreciate pulm input (Dr. Warren) * Follow bc x 2 - NGTD. sputum not obtained * Pt takes breo at home, don't order symbicort inpatient, can consider adding spiriva * Incentive spirometry, TRC * Desat on ambulation and felt dizzy, repeat O2 sat on ambulation, pt did not desat initially, but desat when walked later on. will go home on o2 * Continue breo and start spiriva at dc # Alcohol dependence: Patient has been drinking since 19 years old, was sober for 15 years in between started again for last 2 to 3 years, 6 beers daily. Last drink was 11/06 night. Serum alcohol on admission < 10. * Cont Ativan PRN per CIWA # Lethargy most likely due to ativan: 11/08 am - He was alert but would doze off intermittently during our conversation. ABG checked, not indicative of CO2 retention. * Scheduled ativan was discontinued as it is most likely the cause of his lethargy. * will keep prn ativan per ciwa. # Hyponatremia (improving with IVF): baseline 130--today at 127 * 119 on admission. Patient has history of heavy drinking and the hyponatremia most likely secondary to beer potomania. * Follow Na level until normalization * 1 more bag of ns prior to dc # Hyperkalemia (resolved): was 5.6 on admission, down to 4.6 with kayexelate. WNL today * Follow K level # Oral thrush * Nystatin suspension # Hypertension: In the ED, blood pressure was found to be 201/109 which came down to 150/90 without meds. Regular diet DVT prophylaxis with Lovenox. Patient is full code Problem List: 1. COPD exacerbation Pain Ratin Pain Location: none Pain Goal: Remain pain free Pain Plan: none Tomorrow's Labs & Rationales: none DVT/Prophylaxis: mechanical, pharmacological LEONOR NASH 11/11/16 1336: Attending MD Review Statement Attending Statement Attending MD Statement: examined this patient, discuss w/resident/PA/TRAFFIC ADMINISTRATOR, agreed w/resident/PA/TRAFFIC ADMINISTRATOR, discussed with family, reviewed EMR data (avail), discussed with nursing, discussed with case mgmt, reviewed images, amended to note Attending Assessment/Plan: ASSESSMENT 1. Acute hypoxic respiratory failure. 2. Alcohol dependence 3. hyponatremia 4. hyperkalemia 5. CAP. 6. COPD 7. Tobacco abuse PLAN 1. Admit to inpatient medical services 2. taper steroids,completed abx x 7 days, consulted pulmonary. O2 supplementation, TRC ,nebs 3. CIWA scale prn ativan 4. Hyponatremia probable dehydration NS gentle hydration. 5. kayexalate for hyperkalemia 6. alcohol and tobacco cessation counselling. 7. gi/dvt prophyalxis 8. full code D/C planning Home oxygen arranged and anticipate d/c soon. Case management on board.
[2016-11-11] MEDS ORDERED: PREDNISONE10 M2 PO ×4 (07:46→09:45)
[2016-11-11 08:08] LABS: ABSOLUTE BASOPHIL COUNT 0 /CUMM (0.0-0.2); ABSOLUTE EOSINOPHIL COUNT 0.1 /CUMM (0.0-0.7); ABSOLUTE GRANULOCYTE CT 7.9 /CUMM (1.4-6.5); ABSOLUTE LYMPH COUNT 2.8 /CUMM (1.2-3.4); ABSOLUTE MONOCYTE COUNT 1.4 /CUMM (0.10-0.60); BASOPHIL % 0.1 % (0.0-2.0); EOSINOPHIL % 0.8 % (0-5); GRANULOCYTE % 64.6 % (42.2-75.2); HEMATOCRIT 47.5 % (42-52); MEAN CORPUSCULAR HGB 32.3 PG (27.0-31.0); MEAN CORPUSCULAR HGB CONC 33.6 G/DL (33.0-37.0); MEAN CORPUSCULAR VOLUME 95.9 FL (80.0-94.0); MEAN PLATELET VOLUME 5.8 FL (7.4-10.4); PLATELET COUNT 389 /CUMM (130-400); RBC DISTRIBUTION WIDTH 13.9 % (11.5-14.5); RED BLOOD CELL CT 4.95 /CUMM (4.70-6.10); WHITE BLOOD CELL COUNT 12.2 /CUMM (4.8-10.8)
--- NOTE | 2016-11-11 09:43 | PN- Pulmonary ---
Subjective HPI/Critical Care Issues: pt seen and examined transitioned to po prednisone over weekend afebrile o2 sats are stable returning to baseline no fevers, no n/v/d/c, no cp Objective Current Medications: Current Medications Sig/Omar Start time Last Medication Dose Route Stop Time Status Admin Albuterol Sulfate 3 ML EVERY 4 HRS/AWAKE 11/08 1999 AC 11/11 INH 0816 Docusate Sodium 100 MG DAILY 11/10 1650 AC 11/10 PO 1728 Enoxaparin Sodium 40 MG DAILY 11/07 1138 AC 11/10 SC 1021 Ipratropium [place] 2.5 ML EVERY 4 HRS/AWAKE 11/08 1999 AC 11/11 INH 0816 Moxifloxacin HCl 400 MG DAILY 11/07 1223 DC 11/10 PO 11/10 2300 1019 Nystatin 5 ML 4 TIMES/DAY 11/07 2200 AC 11/10 PO 2135 Polyethylene Glycol 17 GM DAILY PRN 11/10 1700 AC PO Prednisone 50 MG DAILY 11/11 1000 AC PO 11/12 1001 Prednisone 60 MG DAILY 11/10 1000 DC 11/10 PO 11/11 1001 1020 Senna/Docusate Sodium 2 TAB DAILY 11/10 1650 AC 11/10 PO 1728 Vital Signs & I&O Last 24 Hrs of Vitals and I&O: Vital Signs Date Time Temp Pulse Resp B/P B/P Pulse O2 O2 Flow FiO2 Mean Ox Delivery Rate 11/11 0816 88 Room Air Room Air 11/11 0652 98.1 83 20 160/90 94 05 0000 49 Room Air Room Air 11/10 2215 97.6 91 18 132/80 94 Room Air 11/10 1800 97.8 82 18 124/70 11/10 1628 93 Room Air Room Air 11/10 1600 91.0 82 18 124/70 11/10 1418 97.8 100 18 124/80 91 Room Air 11/10 1400 97.8 82 18 124/70 11/10 1200 97.9 100 18 144/70 11/10 1108 97.9 82 18 144/70 90 Nasal 1.0L Cannula 11/10 1000 98.3 80 18 132/80 Intake & Output 11/11 1600 05 0800 05 0000 Intake Total 240 480 Output Total 300 Balance 240 180 Intake, Oral 240 480 Output, Urine 300 Exam Other Physical Findings: Gen - alert and awake HEENT - NCAT CVS - S1, S2, no murmurs, rubs or gallops Lungs - prolonged end expiratory phase Abdomen - soft, non-tender, bs+ Ext - no edema, no cyanosis Results Last 24 Hrs of Lab Results: Laboratory Tests 11/11/16 0705: Anion Gap 6, Estimated GFR > 60, BUN/Creatinine Ratio 18.6, CBC w Diff NO MAN DIFF REQ, RBC 4.95, MCV 95.9 H, MCH 32.3 H, RDW 13.9, MPV 5.8 L, Gran % 64.6, Lymphocytes % 23.0, Monocytes % 11.5 H, Eosinophils % 0.8, Basophils % 0.1, Absolute Granulocytes 7.9 H, Absolute Lymphocytes 2.8, Absolute Monocytes 1.4 H, Absolute Eosinophils 0.1, Absolute Basophils 0, PUBS MCHC 33.6 Impression/Plan Impression/Plan Impression/Plan: Impression 61 year old man * COPD exacerbation, possible underlying bronchitis and smoking related lung disease * hyponatremia with a likely component of alcoholism * healing rib fractures, per pt had an accidental fall, however no symptoms * pulmonary nodules Plan - TRC/Nebs - incentive spirometry - prednisone taper by 10mg every 3 days - s/p Avelox - takes BREO at home - order spiriva as outpatient - hyponatremia workup per primary team, urine and serum osm, etc - drinking and smoking cessation counseling - monitor on ciwa - outpatient pulmonary nodule follow up - DVT prophylaxis at all times
[2016-11-11] MEDS ORDERED: SPIRIVA18 MCG INH (09:48)
--- NOTE | 2016-11-11 13:26 | NUR ---
86% oxygen at rest on room air, 94% on 2l.
[2016-11-11 14:53] VITALS: BP 160/90
--- NOTE | 2016-11-11 17:18 | NUR ---
PT STATES HIS WALLET AND JEANS ARE MISSING, HE IS PREPARING TO DRESS FOR DISCHARGE. 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 A WOMAN NAMED ALEXANDER CAME TO HIS ROOM THIS MORNING WITH HIS INSURANCE CARD STATING THAT SHE FOUND IT ON THE LAWN OUTSIDE THE BUILDING SHE WORKS ([facility]). PT SAYS THAT'S STRANGE SINCE HE NEVER TOOK IT OUT OF THE HOSPITAL. HE HAD IT WITH HIM INT ED. WOODWORKING BENCH CARPENTER AWARE. SECURITY CALLED, [employer] CALLED.
== END 2016-11-11 18:00 | DRG 191 ==
LOC: ERH 09:13 → ERHI 11:47 → 2NB 11:47 → ENRESERV 14:09 → 2NB 15:38 → ENPENDDIS 11-11 10:26 → 2NB 11-11 18:00
PROVIDERS: Physician Assistant; Radiology Diagnostic Radiology; Student in an Organized Health Care Education/Training Program; ADMIT Internal Medicine
DX: J44.1 Chronic obstructive pulmonary disease with (acute) exacerbation (principal); E87.1 Hypo-osmolality and hyponatremia; I10 Essential (primary) hypertension; E87.5 Hyperkalemia; F10.20 Alcohol dependence, uncomplicated; Y90.0 Blood alcohol level of less than 20 mg/100 ml; F17.200 Nicotine dependence, unspecified, uncomplicated; D72.828 Other elevated white blood cell count
CPT/HCPCS: 2NBSP; 84133; 84300; 36415; 81003; 82436; 82570; 87040; 87070; 87449; 87450; 93005; 93010; 96365; 96366; 99291; G0480; J0456; J0696; J1650; J2920; J2930; J7040

== ENCOUNTER 2017-10-21 18:58 | Inpatient (IN) | payer OTHER ==
[~2017-10-21] VITALS: Ht 185.4 cm; Wt 65.8 kg
[~2017-10-21 18:58] MED LIST changes: +AVELOX400 M1 PO; +MOXIFLOXACIN H400 M2 PO; +NYSTATIN100000 UNI PO; +SPIRIVA18 MCG INH
[2017-10-21 20:13] LABS: ABSOLUTE BASOPHIL COUNT 0 /CUMM (0.0-0.2); ABSOLUTE EOSINOPHIL COUNT 0 /CUMM (0.0-0.7); ABSOLUTE GRANULOCYTE CT 8.9 /CUMM (1.4-6.5); ABSOLUTE LYMPH COUNT 0.7 /CUMM (1.2-3.4); ABSOLUTE MONOCYTE COUNT 1.7 /CUMM (0.10-0.60); BASOPHIL % 0 % (0.0-2.0); EOSINOPHIL % 0.1 % (0-5); GRANULOCYTE % 78.8 % (42.2-75.2); HEMATOCRIT 50.9 % (42-52); MEAN CORPUSCULAR HGB 32.2 PG (27.0-31.0); MEAN CORPUSCULAR HGB CONC 34.3 G/DL (33.0-37.0); MEAN CORPUSCULAR VOLUME 93.9 FL (80.0-94.0); MEAN PLATELET VOLUME 6.2 FL (7.4-10.4); PLATELET COUNT 355 /CUMM (130-400); RED BLOOD CELL CT 5.42 /CUMM (4.70-6.10); WHITE BLOOD CELL COUNT 11.3 /CUMM (4.8-10.8)
--- NOTE | 2017-10-21 20:33 | RADIOLOGY REPORT ---
EXAMINATION: XR CHEST CLINICAL INFORMATION: Chest pain, shortness of breath. COMPARISON: CT chest 04/04/2017. Chest x-ray 11/07/2016 TECHNIQUE: 2 views of the chest were obtained. FINDINGS: There is hyperexpansion of lungs. There is no acute change. No pulmonary vascular congestion. There is no infiltrate or pleural effusion or pneumothorax. Heart size is normal. The cardiac and mediastinal contours are normal. There are calcifications of the aortic arch. IMPRESSION: Hyperexpansion of lungs. No acute abnormality of chest.
--- NOTE | 2017-10-21 21:16 | ED DYSPNEA/ASTHMA COMPLAINT ---
History of Present Illness General Chief Complaint: Chest Pain Stated Complaint: CHEST PAIN, SOB, BUSH Source: patient, family, old records Exam Limitations: no limitations Allergies Coded Allergies: NO KNOWN ALLERGIES (05/29/16) Reconcile Medications Albuterol Sulfate (Proventil Hfa) 6.7 GM HFA.AER.AD 2 PUF INH Q4 SOB Fluticasone-Salmeterol (Advair 100-50 Diskus) 1 EACH BLST.W.DEV 1 PUF INH BID COPD Nystatin 100,000 UNIT/ML ORAL.SUSP 5 ML PO 4 TIMES/DAY PRN YEAST INFECTION Omeprazole 40 MG CAPSULE.DR 1 CAP PO DAILY acid reflux Prednisone 10 MG TABLET 0 PO SI COPD please take 50 mg daily until 11/13/16 then take 40 mg daily for the next 3 days then take 30 mg daily for the next 3 days then take 20 mg daily for the next 3 days then take 10 mg daily for the next 3 days Robitussin AC (Guaifenesin-Codeine Syrup) 200 MG-20 MG/10 ML LIQUID 10 ML PO Q6P PRN COUGH Tiotropium [place] (Spiriva) 18 MCG CAP.W.DEV 1 CAP INH DAILY COPD Triage Note: PT FROM HOME C/O DIFFICULTY BREATHING X3 DAYS. PT STATES HE HAS A PRODCUTIVE COUGH WITH BROWN/GREEN SPUTUM. PT STATES THE SOB BEGAN WITH A HEAD/CHEST COLD THAT BEGAN FRIDAY THAT LEAD TO SOB UPON EXCERTION. PT STATES CHILLS AND SWEATS. PT IS 94% ON RA IN TRIAGE. PTS VSS. AFEBRILE IN TRIAGE. PT HAS BEEN ON PREDNISONE FOR THE 2X DAYS FROM [facility]ILK[facility]. PT HAS ALSO TRIED NEBULIZERS WITH NO RELIEF. PT DENIES CP, ARM NUMBNESS/TINGLING, JAW PAIN. Triage Nurses Notes Reviewed? yes Onset: Gradual Duration: day(s): (3), constant Timing: recent history Severity: moderate Activities at Onset: none Prior Episodes/Possible Cause: frequent episodes Modifying Factors: Improves With: rest. Associated Symptoms: cough, fever, wheezing HPI: 62-year-old male presents to the ER for evaluation history of COPD active smoker plenty of difficulty breathing cough productive of yellow to green sputum, worsening shortness breath despite using his inhalers and prednisone. He spoke with his medical oncology physician Dr. Wilkerson who put him on prednisone the symptoms get worse worse with laying flat and exertion. He denies any leg swelling chest pain palpitations. He does report to fever chills. No abdominal pain nausea vomiting diarrhea. (Scot Sprague) Vital Signs & Intake/Output Vital Signs & Intake/Output Vital Signs Date Time Temp Pulse Resp B/P B/P Pulse O2 O2 Flow FiO2 Mean Ox Delivery Rate 10/22 2115 98.4 93 20 166/82 96 Room Air Room Air 10/22 2115 94 10/21 1922 98.0 108 18 165/90 94 Room Air (Chivo DO,Benny Sparrow) Past History Travel History Traveled to [place] past 21 day No Medical History Any Pertinent Medical History? see below for history Neurological: NONE EENT: NONE Cardiovascular: NONE Respiratory: COPD, emphysema Gastrointestinal: NONE Hepatic: NONE Renal: NONE Musculoskeletal: NONE Psychiatric: NONE Endocrine: NONE Blood Disorders: NONE Cancer(s): NONE RAISED PRINTER/Reproductive: NONE History of MRSA: No History of VRE: No History of CDIFF: No Influenza Vaccine: 03/14/16 Surgical History Surgical History: NOSE CYST Psychosocial History Who do you live with Spouse Services at Home None What is your primary language Kiswahili Tobacco Use: Current Daily Use Daily Tobacco Use Amount/Type: => 5 Cigarettes daily Family History Family History, If Any: Relation not specified for: *No pertinent family history Hx Contributory? No (Scot Sprague) Review of Systems Review of Systems Constitutional: Reports: see HPI. Comments Review of systems: See HPI, All other systems negative. Constitutional, chills fever HEENT: no sore throat no congestion Cardiovascular: No chest pain Skin: no rashes, no change in skin Respiratory: dyspnea cough no sputum no hemoptysis GI: No nausea no vomiting, no diarrhea Muscle skeletal: No joint pain, no back pain, no neck pain, Neurologic: , no headache Heme/endocrine: No bruising Immunology: No lymphadenopathy (Scot Sprague) Physical Exam Physical Exam General Appearance: no apparent distress, alert, awake Respiratory: wheezing, decreased breath sounds Comments: Well-developed well-nourished person in no acute distress HEENT: Normal EENT exam; PERRL, EOMI, HEAD is atraumatic. moist mucous membranes. Neck: Supple, no lymphadenopathy, normal range of motion Back: Nontender, no CVA tenderness. Full range of motion Cardiovascular: Regular rate and rhythms no murmur Respiratory: moderate respiratory distress. Patient speaking in full complete sentences. Diminished breath sounds bilaterally wheezing in all lung zaidi Abdomen: Soft, nontender nondistended, Extremity: No edema, full range of motion of extremities, Neuro: Alert oriented x3, motor sensory normal, There were no obvious focal neurologic abnormalities. Skin: No appreciable rash on exposed skin, skin is warm and dry. Psych: Mood and affect is normal, memory and judgment is normal. Core Measures ACS in differential dx? Yes CVA/TIA Diagnosis No Sepsis Present: No Sepsis Focused Exam Completed? No (Lisa KRAMER,Scot) Progress Differential Diagnosis: asthma, AMI, CHF, COPD, pulmonary embolism, pneumonia, unstable angina Plan of Care: Orders Procedure Date/time Status Heart Healthy Diet 10/22 B Active Weight 10/21 2355 Active Vital Signs 10/21 2355 Active Teach/Educate 10/21 235 Active Pain Treatment and Response 10/21 2355 Active Nutritional Intake, Monitor 10/21 2355 Active Isolation 10/21 235 Active Patient Care Conference 10/21 2355 Active Activity/Ambulation 10/21 2355 Active Admit to inpatient 10/21 2222 Active Code Status 10/21 222 Active Patient Data 10/21 2217 Active RAPID VIRAL INFLUENZA A 10/21 212 Complete Intake & Output 10/21 2108 Active TROPONIN LEVEL 10/21 192 Complete D-DIMER 10/21 192 Complete COMPREHENSIVE METABOLIC PANEL 10/21 192 Complete CBC WITHOUT DIFFERENTIAL 10/21 1921 Complete EKG 10/21 1900 Active Laboratory Tests 10/21/17 2004: Anion Gap 11, Estimated GFR > 60, BUN/Creatinine Ratio 16.7, Glucose 135 H, Calcium 9.6, Total Bilirubin 1.2, AST 68 H, ALT 41, Alkaline Phosphatase 72, Troponin I < 0.01, Total Protein 7.4, Albumin 4.6, Globulin 2.8, Albumin/ Globulin Ratio 1.6, D-Dimer High Sensitivty < 200, CBC w Diff NO MAN DIFF REQ, RBC 5.42, MCV 93.9, MCH 32.2 H, MCHC 34.3, RDW 14.0, MPV 6.2 L, Gran % 78.8 H , Lymphocytes % 6.2 L, Monocytes % 14.9 H, Eosinophils % 0.1, Basophils % 0, Absolute Granulocytes 8.9 H, Absolute Lymphocytes 0.7 L, Absolute Monocytes 1.7 H, Absolute Eosinophils 0, Absolute Basophils 0 Microbiology 10/21 2121 NASOPHARYN: Influenza Virus A & B Rapid Smear - COMP DuoNeb ordered labs were ordered from triage. Discussed with patient his x-ray lab results to date, Old records reviewed patient's hyponatremia today is similar to his previous sodium levels during his previous admission for COPD exacerbations Patient at rest was 94% with ambulation he dropped to 90-91% notably tachypneic, lightheaded I discussed with the patient his labs x-ray given his noted dyspnea with exertion failed outpatient therapy I discussed the likely premature discharge and medically harmful which she is in agreement with. case d/w dr vu agrees with plan Diagnostic Imaging: Viewed by Me: Radiology Read. Discussed w/RAD: Radiology Read. Radiology Impression: PATIENT: DENA FULLER PRESENT AGE: 62 PATIENT ACCOUNT NO: [id number] : 56 LOCATION: [facility] ORDERING PHYSICIAN: Charlie KRAMER SERVICE DATE: 10/21/17 EXAM TYPE: RAD - XRY- CHEST XRAY, TWO VIEWS EXAMINATION: XR CHEST CLINICAL INFORMATION: Chest pain, shortness of breath. COMPARISON: CT chest 04/04/2017. Chest x-ray 11/07/2016 TECHNIQUE: 2 views of the chest were obtained. FINDINGS: There is hyperexpansion of lungs. There is no acute change. No pulmonary vascular congestion. There is no infiltrate or pleural effusion or pneumothorax. Heart size is normal. The cardiac and mediastinal contours are normal. There are calcifications of the aortic arch. IMPRESSION: Hyperexpansion of lungs. No acute abnormality of chest. DICTATED BY: Daquan Aceves MD DATE/TIME DICTATED:10/21/172028 EARTH BORING MACHINE OPERATOR :IVAN DATE/TIME TRANSCRIBED:10/21/172028 CONFIDENTIAL, DO NOT COPY WITHOUT APPROPRIATE AUTHORIZATION. <Electronically signed in Other Vendor System> SIGNED BY: Daquan Aceves MD 10/21/172032 Initial ED EKG: normal intervals, normal p-waves, normal QRS complex, normal sinus rhythm (Scot Sprague) Departure Departure Time of Disposition: 2210 Disposition: STILL A PATIENT Condition: Stable Clinical Impression Primary Impression: COPD exacerbation Referrals: Claire Geremias ALVAREZ (PCP/Family) Departure Forms: Customer Survey General Discharge Information Admission Note Spoke With: Nydia Bullard MD Documentation of Exam: Documentation of any treatments & extenuating circumstances including Concerns Regarding Discharge (functional status, medication knowledge or non-compliance, living conditions, etc.) that warrant an admission rather than observation: Patient has failed outpatient therapy noted dyspnea with exertion desaturation with exertion premature discharge would be medically harmful IV steroids IV antibiotics and labs pulmonology consult (Scot Sprague) PA/AUTOMOTIVE FUEL SYSTEMS CONVERTER Co-Sign Statement Statement: ED Attending supervision documentation- [x] I saw and evaluated the patient. I have also reviewed all the pertinent lab results and diagnostic results. I agree with the findings and the plan of care as documented in the PA's/AUTOMOTIVE FUEL SYSTEMS CONVERTER's documentation. [X] I have reviewed the ED Record and agree with the PA's/AUTOMOTIVE FUEL SYSTEMS CONVERTER's documentation. [] Additions or exceptions (if any) to the PAs/AUTOMOTIVE FUEL SYSTEMS CONVERTER's note and plan are summarized below: [] I saw and personally examined the patient. He had bilateral expiratory wheezes. (Chivo THOMAS,Benny Sparrow) Critical Care Note Critical Care Note Critical Care Time: non-applicable (Scot Sprague)
--- NOTE | 2017-10-21 23:24 | History & Physical ---
Emanuel Banerjee 10/21/17 2323: General Information and HPI MD Statement: I have seen and personally examined DENA FULLER and documented this H&P. The patient is a 62 year old M who presented with a patient stated chief complaint of shortness of breath Source of Information: patient, old records Exam Limitations: no limitations History of Present Illness: 62-year-old gentleman from home, current smoker alcohol use disorder, past medical history significant for COPD on nocturnal home oxygen of 2 L, pulmonary nodule, history of ulcerative colitis comes to ED for evaluation of worsening shortness of breath of 3 days' duration. Shortness of breath, has worsened on minimal exertion. Since the past week he's also has been having some sore throat, runny nose, cough with copious brownish expectoration with some chills. No documented fever at home. Endorses that his friend is also sick. He called Dr. Warren a few days ago in Dr. Warren had started him on prednisone for which he took 2 days of. Reports that symptoms did not improve with the prednisone or nebs. Also endorses pleuritic chest pain on coughing. Denies headaches, nausea, vomiting, rashes, recent travel. Of note he apparently has not been able to use his nocturnal oxygen at night for the past one month due to insurance reasons. Patient drinks about 6 beers a day, his last drink was on Friday Allergies/Medications Allergies: Coded Allergies: NO KNOWN ALLERGIES (05/29/16) Home Med list Albuterol Sulfate (Proventil Hfa) 6.7 GM HFA.AER.AD 2 PUF INH Q4 SOB Fluticasone-Salmeterol (Advair 100-50 Diskus) 1 EACH BLST.W.DEV 1 PUF INH BID COPD Nystatin 100,000 UNIT/ML ORAL.SUSP 5 ML PO 4 TIMES/DAY PRN YEAST INFECTION Omeprazole 40 MG CAPSULE. 1 CAP PO DAILY acid reflux Prednisone 10 MG TABLET 0 PO SI COPD please take 50 mg daily until 11/13/16 then take 40 mg daily for the next 3 days then take 30 mg daily for the next 3 days then take 20 mg daily for the next 3 days then take 10 mg daily for the next 3 days Robitussin AC (Guaifenesin-Codeine Syrup) 200 MG-20 MG/10 ML LIQUID 10 ML PO Q6P PRN COUGH Tiotropium [place] (Spiriva) 18 MCG CAP.W.DEV 1 CAP INH DAILY COPD Compliance With Home Meds: GOOD Past History Travel History Traveled to [place] past 21 day No Medical History Neurological: NONE EENT: NONE Cardiovascular: NONE Respiratory: COPD, emphysema Gastrointestinal: NONE Hepatic: NONE Renal: NONE Musculoskeletal: NONE Psychiatric: NONE Endocrine: NONE Blood Disorders: NONE Cancer(s): NONE NEONATAL SURGEON/Reproductive: NONE History of MRSA: No History of VRE: No History of CDIFF: No Influenza Vaccine: 03/14/16 Surgical History Surgical History: NOSE CYST Past Family/Social History Family History Relations & Conditions if any Relation not specified for: *No pertinent family history Psychosocial History Who Do You Live With? spouse Services at Home: None Functional Ability ADLs Independent: dressing, eating, toileting, bathing. Ambulation: independent IADLs Independent: shopping, housework, finances, food prep, telephone, transportation , medication admin. Review of Systems Review of Systems Constitutional: Denies: chills, diaphoresis, fever, malaise, weakness, unexplained weight loss. Cardiovascular: Denies: chest pain, edema, orthopena, palpitations, peripheral edema, syncope. Respiratory: Reports: cough, short of breath, sputum production. GI: Denies: abdominal pain, bloating, constipation, diarrhea, distention, bowel incontinence, melena, nausea, bloody stool, changes in stool, vomiting, steatorrhea. Genitourinary: Denies: discharge, dysuria, frequency, hematuria, hesitation, nocturia, pain, urgency. Exam & Diagnostic Data Last 24 Hrs of Vital Signs/I&O Vital Signs Date Time Temp Pulse Resp B/P B/P Pulse O2 O2 Flow FiO2 Mean Ox Delivery Rate 10/22 0141 97 Nasal 2.0L Cannula 10/22 001 98.1 93 25 153/94 95 Nasal 2.0L Cannula 10/22 2115 98.4 93 20 166/82 96 Room Air Room Air 10/22 2115 94 10/21 1923 98.0 108 18 165/90 94 Room Air Intake & Output 10/22 0800 10/22 0000 10/21 1600 Intake Total Output Total Balance Patient 145 lb 145 lb Weight Weight Standing Scale Measurement Method Physical Exam General Appearance Alert, Oriented X3, Cooperative, No Acute Distress HEENT Atraumatic, PERRLA, Mucous Membr. moist/pink, reddish conjuntiva Cardiovascular Regular Rate, Normal S1, Normal S2 Lungs Clear to Auscultation, Normal Air Movement, b/l basal dry crackles Abdomen Normal Bowel Sounds, Soft, No Tenderness Diagnostic Data EKG Results Normal sinus rhythm, heart rate 105, QTC 450 CXR Results FINDINGS: There is hyperexpansion of lungs. There is no acute change. No pulmonary vascular congestion. There is no infiltrate or pleural effusion or pneumothorax. Heart size is normal. The cardiac and mediastinal contours are normal. There are calcifications of the aortic arch. IMPRESSION: Hyperexpansion of lungs. No acute abnormality of chest. Assessment/Plan Assessment: 62-year-old gentleman from home, current smoker alcohol use disorder, past medical history significant for COPD on nocturnal home oxygen of 2 L, pulmonary nodule, history of ulcerative colitis comes to ED for evaluation of worsening shortness of breath of 3 days' duration. Assessment: Acute on chronic COPD exacerbation secondary to possible underlying upper respiratory infection. Problem list: Acute on chronic COPD exacerbation AUD use disorder Current smoker Hypo-hyponatremia likely secondary to beer portomania Plan: Admit to general medicine floor TRC/nebs will continue with IV Solu-Medrol 40 every 12 hours and azithromycin Follow-up sputum culture, rapid flu negative Follow-up serum osmolality and urine lytes Nicotine patch Pulm consult with Dr. Warren We'll place on CIWA score regular diet DVT prophylaxis with subcutaneous Lovenox Patient is a full code As Ranked By This Provider Problem List: 1. Hyponatremia 2. ETOH abuse 3. COPD (chronic obstructive pulmonary disease) Core Measures/Misc (03/30) Acute Coronary Syndrome ACS Diagnosis: No Congestive Heart Failure Congestive Heart Failure Diagnosis No Cerebrovascular Accident CVA/TIA Diagnosis: No VTE (View Protocol) VTE Risk Factors Age>40 No Mechanical VTE Prophylaxis d/t N/A MechProphylax Ordered No VTE Pharm Prophylaxis d/t NA PharmProphylax ordered Sepsis (View protocol) Sepsis Present: No Nydia Bullard 10/22/17 0512: Attending MD Review Statement Attending Statement Attending MD Statement: examined this patient, discuss w/resident/PA/CASHIER MANAGER, agreed w/resident/PA/CASHIER MANAGER, reviewed EMR data (avail), reviewed images, amended to note Attending Assessment/Plan: CC: Shortness of breath PMH: COPD, alcoholism Patient came to ER for worsening shortness of breath. Patient states that it started approximately 3-4 days back, mostly dyspnea on exertion and beginning then eventually shortness of breath even at rest, associated with productive cough with brown colored sputum production. He endorses head and chest congestion secondary to cold, chills and sweats but no fever. He called his auto porter who prescribed tapering dose of steroids which helped him a little but he was still symptomatic so came to ER. He has chest soreness because of excessive coughing but denies any chest tightness, pleuritic chest pain, nausea, vomiting, presyncope, no leg swelling, PND or orthopnea. His coworker got sick today because of him. Patient also has diarrhea since last 1 week, 4-5 loose bowel movements every day, not associated with abdominal cramping. He saw his primary care physician last week and his sodium was low at that time, and cleared why but he was suggested to restrict his fluid and alcohol intake. He drinks 6 beers every day nighttime, good by mouth intake: Eats all meals. Vitals: Afebrile, pulse 108, RR 18, blood pressure 165/90, saturating 94% on 2 L nasal cannula On exam: A O 3, cooperative, mild respiratory distress, no accessory muscles in use, coughing intermittently, neck supple, JVD normal, no lymphadenopathy, mucosa dry, no focal neurological deficit, no dependent edema, no obvious skin rashes or inflammation CVS: S1-S2, RRR. RS: Bilateral rhonchi, diffuse minimum. Abdomen: Soft, NT, ND, bowel sounds present. CXR: Hyperexpansion of lungs. No acute abnormality of chest. Assessment and plan 62-year-old male with past medical history of COPD and daily alcohol use, 6 beers every night presented to ER for worsening of shortness of breath over 3-4 days, productive cough with brown colored sputum production, endorses chills and sweats but no fever, no pleuritic chest pain. He has mild rhonchi on auscultation but no significant wheezing but he desaturated to 90% on ambulation in ER. No JVD, no leg swelling. Patient does not have significant leukocytosis and I personally reviewed x-ray, no evidence of pneumonia. This appears to be COPD exacerbation, failed outpatient treatment, requiring general medicine admission. At the same time patient was found to be hyponatremic sodium 121 it's unclear etiology, his sodium was 129 on October 15, patient had similar levels in October 2016, at that time he was considered low solute intake hyponatremia. His sodium was 136 in March 2017,thus this hyponatremia should be worked up. We' ll get urine osmolality, serum osmolality, urine electrolytes. Patient eats 3 meals a day, less likely low solute. He has diarrhea since last 1 week or more, 4-5 loose bowel movements everyday and appears dehydrated on examination which could be the cause of hyponatremia and patient would benefit from gentle hydration. + COPD exacerbation + Hyponatremia : Hypovolemic - Admit to general medicine - Try to wean off oxygen - IV methylprednisolone 40 mg every 12 hours - IV azithromycin - TRC nebulization with albuterol and ipratropium scheduled and when necessary - Mucinex scheduled twice a day - Continue rest of the home medications - Adequate pain control - DVT prophylaxis - WA protocol - sr. osmolality, urine osmolality, urine electrolytes - Gentle hydration with normal saline at 100 mL per hour, recheck sodium in 6-8 hours, if appropriately trending up and then continue hydration, if sodium trending down then patient may require fluid restriction
--- NOTE | 2017-10-22 05:14 | Admission Certification ---
Admission Certification Certification Statement - As attending physician, I certify that at the time of - admission, based on clinical presentation, severity of - symptoms, need for further diagnostic testing and - therapeutic interventions, and risk of adverse outcomes - without in-hospital treatment, in my clinical assessment, - this patient requires an acute hospital stay for a minimum - of two nights or longer. I have also considered psychsocial - factors such as support system, advanced age, financial - issues, cognitive issues, and failed out-patient treatments, - past re-admission history, safety of patient, and lack of - compliance as applicable. Specific rationale supporting this admission is: COPD exacerbation, hyponatremia
[2017-10-22 06:20] LABS: ABSOLUTE BASOPHIL COUNT 0 /CUMM (0.0-0.2); ABSOLUTE EOSINOPHIL COUNT 0 /CUMM (0.0-0.7); ABSOLUTE GRANULOCYTE CT 7.6 /CUMM (1.4-6.5); ABSOLUTE LYMPH COUNT 0.4 /CUMM (1.2-3.4); ABSOLUTE MONOCYTE COUNT 0.2 /CUMM (0.10-0.60); BASOPHIL % 0.1 % (0.0-2.0); EOSINOPHIL % 0.1 % (0-5); GRANULOCYTE % 92.4 % (42.2-75.2); HEMATOCRIT 47.6 % (42-52); MEAN CORPUSCULAR HGB 32.5 PG (27.0-31.0); MEAN CORPUSCULAR HGB CONC 34.3 G/DL (33.0-37.0); MEAN CORPUSCULAR VOLUME 94.8 FL (80.0-94.0); PLATELET COUNT 317 /CUMM (130-400); RED BLOOD CELL CT 5.03 /CUMM (4.70-6.10); WHITE BLOOD CELL COUNT 8.2 /CUMM (4.8-10.8)
--- NOTE | 2017-10-22 07:20 | PN- Housestaff ---
FlorymirandasurajJoel 10/22/17 0719: Subjective Follow-up For: COPD exacerbation Hyponatremia Complaints: intermittent cough, mild shortness of breath Subjective: There were no acute events overnight. This morning Mr. Langford states that he feels comfortable while at rest however, once he's gets up he does feel significant shortness of breath. He denies any fevers, chills, sore throat, runny nose, chest pain, palpitations, nausea, vomiting, abdominal pain. Patient does complain of distal lower extremity itching which has been going on for a few months Review of Systems Constitutional: Reports: see HPI. EENTM: Reports: no symptoms. Cardiovascular: Reports: see HPI. Respiratory: Reports: see HPI. Gastrointestinal: Reports: no symptoms. Genitourinary: Reports: no symptoms. Musculoskeletal: Reports: no symptoms. Skin: Reports: see HPI. Objective Last 24 Hrs of Vital Signs/I&O Vital Signs Date Time Temp Pulse Resp B/P B/P Pulse O2 O2 Flow FiO2 Mean Ox Delivery Rate 10/22 1737 Room Air 10/22 1737 94.0 93 16 150/89 10/22 1737 97.9 93 16 150/89 94 Room Air 10/22 1159 97.4 94 16 164/73 97 Room Air 10/22 0732 Nasal 2.0L Cannula 10/22 0615 98.2 78 20 149/81 94 Room Air 10/22 0141 97 Nasal 2.0L Cannula 10/22 0016 98.1 93 25 153/94 95 Nasal 2.0L Cannula 10/21 211 98.4 93 20 166/82 96 Room Air Room Air 10/21 2116 94 10/21 1923 98.0 108 18 165/90 94 Room Air Intake & Output 10/22 1600 10/22 0800 10/22 0000 Intake Total 1160 Output Total 800 Balance 360 Intake, IV 600 Intake, Oral 560 Output, Urine 800 Patient 145 lb 145 lb Weight Weight Standing Scale Measurement Method Physical Exam General Appearance: Alert, Cooperative, No Acute Distress Skin: scattered abrasions of the distal lower extremities. No evidence of blisters or bullae Skin Temp/Moisture Exam: Warm/Dry HEENT: Mucous Membr. moist/pink Neck: Supple Cardiovascular: Regular Rate, Normal S1, Normal S2 Lungs: Normal Air Movement, expiratory rhonchi present in the lower lung zaidi. No wheezing at this time Abdomen: Normal Bowel Sounds, Soft, No Tenderness Extremities: No Edema, Normal Pulses Vascular: Pulses Symmetrical Current Medications: Current Medications Sig/Omar Start time Last Medication Dose Route Stop Time Status Admin Albuterol Sulfate 3 ML ONCE ONE 10/21 2114 DC INH 10/22 2115 Albuterol Sulfate 3 ML ONCE ONE 10/210 DC 10/21 INH 10/21 Azithromycin 500 MG Q24H 10/22 2199 AC Dextrose/Water 250 ML IV Azithromycin 500 MG DAILY 10/22 1000 DC Dextrose/Water 250 ML IV Azithromycin 500 MG ONCE ONE 10/21 2144 DC 10/21 Dextrose/Water 250 ML IV 10/21 2244 2211 Enoxaparin Sodium 40 MG DAILY 10/22 1000 AC 10/22 SC 1000 Guaifenesin 600 MG Q12 10/22 1000 AC 10/22 PO 1123 Guaifenesin 0 .STK-MED ONE 10/22 0250 DC PO Guaifenesin 10 ML Q6P PRN 10/22 0215 AC 10/22 PO 0254 Ipratropium Lebeau 2.5 ML ONCE ONE 10/21 2114 DC INH 10/22 2115 Ipratropium Lebeau 2.5 ML ONCE ONE 10/21 1930 DC 10/21 INH 10/21 1930 210 Methylprednisolone 40 MG Q12 10/22 1000 AC 10/22 IV 1000 Methylprednisolone 0 .STK-MED ONE 10/22 2207 DC .ROUTE Methylprednisolone 125 MG ONCE ONE 10/21 2114 DC 10/21 IV 10/21 211 2211 Nicotine 14 MG DAILY 10/22 1000 AC 10/22 TOP 1000 Omeprazole 40 MG DAILY AC 10/22 0700 AC 10/22 PO 0617 Omeprazole 0 .STK-MED ONE 10/22 0559 DC PO Sodium Chloride 1,000 ML Q10H 10/22 0530 DC 10/22 IV 0617 Sodium Chloride 1,000 ML BOLUS ONE 10/21 2144 DC 10/21 IV 10/21 2244 2211 Last 24 Hrs of Lab/Gage Results Last 24 Hrs of Labs/Mics: Laboratory Tests 10/22/17 1215: 10/22/17 0606: Anion Gap 8, Estimated GFR > 60, BUN/Creatinine Ratio 18.0, Magnesium 1.7, CBC w Diff MAN DIFF ORDERED, RBC 5.03, MCV 94.8 H, MCH 32.5 H, MCHC 34.3, RDW 14.0, MPV 6.0 L, Gran % 92.4 H, Lymphocytes % 4.6 L, Monocytes % 2.8, Eosinophils % 0.1, Basophils % 0.1, Absolute Granulocytes 7.6 H, Segmented Neutrophils 81 H, Band Neutrophils 7 H, Absolute Lymphocytes 0.4 L, Lymphocytes 8 L, Monocytes 4, Absolute Monocytes 0.2, Absolute Eosinophils 0, Absolute Basophils 0, Platelet Estimate ADEQUATE, Polychromasia 1+, Ovalocytes FEW, Fld Total RBCs Counted 100, Ur Random Creatinine 28.3, Ur Random Sodium 27 L, Ur Random Potassium 32.6, Fraction Sodium Excret 0.5 10/21/172003: Anion Gap 11, Estimated GFR > 60, BUN/Creatinine Ratio 16.7, Glucose 135 H, Serum Osmolality 257 L, Calcium 9.6, Total Bilirubin 1.2, AST 68 H, ALT 41, Alkaline Phosphatase 72, Troponin I < 0.01, Total Protein 7.4, Albumin 4.6, Globulin 2.8, Albumin/Globulin Ratio 1.6, D-Dimer High Sensitivty < 200, CBC w Diff NO MAN DIFF REQ, RBC 5.42, MCV 93.9, MCH 32.2 H, MCHC 34.3, RDW 14.0, MPV 6.2 L, Gran % 78.8 H, Lymphocytes % 6.2 L, Monocytes % 14.9 H, Eosinophils % 0.1, Basophils % 0, Absolute Granulocytes 8.9 H, Absolute Lymphocytes 0.7 L, Absolute Monocytes 1.7 H, Absolute Eosinophils 0, Absolute Basophils 0 Microbiology 10/22 612 LOWER RESP: Respiratory Culture - RES 10/22 612 LOWER RESP: Gram Stain - RES 10/21 2121 NASOPHARYN: Influenza Virus A & B Rapid Smear - COMP Assessment/Plan Assessment: 62-year-old gentleman with a PMH of COPD on nocturnal oxygen 2L, current tobacco use, EtOH use (6 beers per day), history of ulcerative colitis who presented to [facility] with complaints of 3 day duration worsening shortness of breath with minimal exertion, mild sore throat, runny nose, productive cough with brownish sputum. Patient had seen his able seaman 2 day's prior to presentation and was started on prednisone. VS on admission: BP 165/90, HR 108, RR 18, SPO2 94% on RA, T 98.0 Labs: WBC 11.3, 81% neutrophils, 7% bandemia, sodium 121, potassium 5.1, serum osmolality 257, glucose 135, magnesium 1.7, AST/ALT 68/40 EKG: Normal sinus rhythm, HR 105, QTC 450 D-dimer: < 200 CXR: hyperexpansion of lungs. There is no acute change. No pulmonary vascular congestion. There is no infiltrate or pleural effusion or pneumothorax. Heart size is normal. The cardiac and mediastinal contours are normal. There are calcifications of the aortic arch. Patient was admitted to general medicine for management of the following problems: 1. COPD exacerbation 2. Hyponatremia Plan: 1. COPD exacerbation * Chest x-ray does not show any evidence of consolidation thus pneumonia less likely at this time. We'll continue the patient with Solu-Medrol along with azithromycin for presumptive diagnosis of COPD exacerbation * We will follow up magnesium level and supplement if subtherapeutic * Mucolytic with mucinex 600mg PO BID for 3-5 days 2. Hyponatremia * Serum sodium 121 with a low urine osmolality. Likely secondary to beer potomania * Patient was started on NS @ 100/hr with repeat sodium 126. We'll discontinue fluid resuscitation at this time and trend sodium Q12 3. History of tobacco dependence * We'll start patient on nicotine replacement 14 mg during day hours 4. GERD * GI prophylaxis with omeprazole 40 mg 5. History of EtOH use * Patient is a regular drinker with 6 beers per day. We will start him on CIWA and is scoring high enough, begin Ativan 6. DVT prophylaxis with Lovenox 40 mg subcutaneous daily 7. Full code Problem List: 1. COPD exacerbation 2. Hyponatremia 3. ETOH abuse Pain Ratin Pain Location: NA Pain Goal: Pain 4 or less Pain Plan: Pain pathway Tomorrow's Labs & Rationales: BEP: following Na DVT/Prophylaxis: pharmacological Reuben Stevens MD 10/22/17 8424: Attending Review Statement Attending Statement Attending Statement: examined this patient, discuss w/resident/PA/PANTRY WORKER, agreed w/resident/PA/PANTRY WORKER, reviewed EMR data (avail), reviewed images, amended to note Attending Assessment/Plan: The patient was seen and discussed with house staff. Appreciate pulmonary input (Dr. Warren). Agree with plan of care as outlined.
--- NOTE | 2017-10-22 11:38 | Cons- Pulmonary ---
General Information and HPI Consulting Request Date of Consult: 10/22/17 Requested By: Dr. Bullard Reason for Consult: dyspnea Source of Information: patient Exam Limitations: no limitations History of Present Illness: 62 year old man. Known to me from the office. Admitted with worsened dyspnea and diagnosed with acute excacerbation of COPD. Continues to smoke 1/2 PPD (from 2PPD). COPD tx includes BREO and bronchodilators. No sick contacts, no travel hx. No cp, no capps, no n/v/d/c. Poor po intake, drinks at least a 6 pack per day. 18 point review of systems was performed and reviewed. Please see pertinent positives and pertinent negatives in the HPI. Otherwise ROS is negative. Followed in the LDCT program. 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 Allergies/Medications Allergies: Coded Allergies: NO KNOWN ALLERGIES (05/29/16) Home Med List: Albuterol Sulfate (Proventil Hfa) 6.7 GM HFA.AER.AD 2 PUF INH Q4 SOB Fluticasone-Salmeterol (Advair 100-50 Diskus) 1 EACH BLST.W.DEV 1 PUF INH BID COPD Nystatin 100,000 UNIT/ML ORAL.SUSP 5 ML PO 4 TIMES/DAY PRN YEAST INFECTION Omeprazole 40 MG CAPSULE. 1 CAP PO DAILY acid reflux Prednisone 10 MG TABLET 0 PO SI COPD please take 50 mg daily until 11/13/16 then take 40 mg daily for the next 3 days then take 30 mg daily for the next 3 days then take 20 mg daily for the next 3 days then take 10 mg daily for the next 3 days Robitussin AC (Guaifenesin-Codeine Syrup) 200 MG-20 MG/10 ML LIQUID 10 ML PO Q6P PRN COUGH Tiotropium Murphy (Spiriva) 18 MCG CAP.W.DEV 1 CAP INH DAILY COPD Current Medications: Current Medications Sig/Omar Start time Last Medication Dose Route Stop Time Status Admin Albuterol Sulfate 3 ML ONCE ONE 10/21 2114 DC INH 10/22 2115 Albuterol Sulfate 3 ML ONCE ONE 10/21 1929 DC 10/21 INH 10/21 Azithromycin 500 MG Q24H 10/22 2199 AC Dextrose/Water 250 ML IV Azithromycin 500 MG DAILY 10/22 999 DC Dextrose/Water 250 ML IV Azithromycin 500 MG ONCE ONE 10/21 2144 DC 10/21 Dextrose/Water 250 ML IV 10/21 2244 2211 Enoxaparin Sodium 40 MG DAILY 10/22 1000 AC 10/22 SC 1000 Guaifenesin 600 MG Q12 10/22 1000 AC 10/22 PO 1123 Guaifenesin 0 .STK-MED ONE 10/22 0250 DC PO Guaifenesin 10 ML Q6P PRN 10/22 0215 AC 10/22 PO 0254 Ipratropium Murphy 2.5 ML ONCE ONE 10/21 211 DC INH 10/22 2115 Ipratropium Murphy 2.5 ML ONCE ONE 10/21 1930 DC 10/21 INH 10/21 1931 2107 Methylprednisolone 40 MG Q12 10/22 1000 AC 10/22 IV 1000 Methylprednisolone 0 .STK-MED ONE 10/21 2208 DC .ROUTE Methylprednisolone 125 MG ONCE ONE 10/21 2114 DC 10/21 IV 10/22 2115 2211 Nicotine 14 MG DAILY 10/22 1000 AC 10/22 TOP 1000 Omeprazole 40 MG DAILY AC 10/22 0700 AC 10/22 PO 0617 Omeprazole 0 .STK-MED ONE 10/22 0559 DC PO Sodium Chloride 1,000 ML Q10H 10/22 0530 AC 10/22 IV 0617 Sodium Chloride 1,000 ML BOLUS ONE 10/21 2145 DC 10/21 IV 10/21 2244 2211 Review of Systems Comments 18 point review of systems was performed and reviewed. Please see pertinent positives and pertinent negatives in the HPI. Otherwise ROS is negative. Past History Travel History Traveled to [place] past 21 day No Medical History Neurological: NONE EENT: NONE Cardiovascular: NONE Respiratory: COPD, emphysema Gastrointestinal: NONE Hepatic: NONE Renal: NONE Musculoskeletal: NONE Psychiatric: NONE Endocrine: NONE Blood Disorders: NONE Cancer(s): NONE SCALEMAKER/Reproductive: NONE Surgical History Surgical History: NOSE CYST Family History Relations & Conditions If Any: Relation not specified for: *No pertinent family history Psychosocial History Where Do You Live? Home Who Do You Live With? spouse Services at Home: None Smoking Status: Current Everyday Smoker Functional Ability ADLs Independent: dressing, eating, toileting, bathing. Ambulation: independent IADLs Independent: shopping, housework, finances, food prep, telephone, transportation , medication admin. Exam & Diagnostic Data Last 24 Hrs of Vital Signs/I&O Vital Signs Date Time Temp Pulse Resp B/P B/P Pulse O2 O2 Flow FiO2 Mean Ox Delivery Rate 10/22 0732 Nasal 2.0L Cannula 10/22 0615 98.2 78 20 149/81 94 Room Air 10/22 0141 97 Nasal 2.0L Cannula 10/22 0016 98.1 93 25 153/94 95 Nasal 2.0L Cannula 10/22 2115 98.4 93 20 166/82 96 Room Air Room Air 10/21 2116 94 10/21 1923 98.0 108 18 165/90 94 Room Air Intake & Output 10/22 1600 10/22 0800 10/22 0000 Intake Total Output Total 400 Balance -400 Output, Urine 400 Patient 145 lb 145 lb Weight Weight Standing Scale Measurement Method Physical Exam Other Physical Findings: alert and awake feeling better on nasal cannula saturating 94% rare rhonchi abd soft, bs+ ext without edema Last 48 Hrs of Labs/Gage: Laboratory Tests 10/22/17 06: Anion Gap 8, Estimated GFR > 60, BUN/Creatinine Ratio 18.0, Magnesium 1.7, CBC w Diff MAN DIFF ORDERED, RBC 5.03, MCV 94.8 H, MCH 32.5 H, MCHC 34.3, RDW 14.0, MPV 6.0 L, Gran % 92.4 H, Lymphocytes % 4.6 L, Monocytes % 2.8, Eosinophils % 0.1, Basophils % 0.1, Absolute Granulocytes 7.6 H, Segmented Neutrophils 81 H, Band Neutrophils 7 H, Absolute Lymphocytes 0.4 L, Lymphocytes 8 L, Monocytes 4, Absolute Monocytes 0.2, Absolute Eosinophils 0, Absolute Basophils 0, Platelet Estimate ADEQUATE, Polychromasia 1+, Ovalocytes FEW, Fld Total RBCs Counted 100, Ur Random Creatinine 28.3, Ur Random Sodium 27 L, Ur Random Potassium 32.6, Fraction Sodium Excret 0.5 10/21/172003: Anion Gap 11, Estimated GFR > 60, BUN/Creatinine Ratio 16.7, Glucose 135 H, Serum Osmolality 257 L, Calcium 9.6, Total Bilirubin 1.2, AST 68 H, ALT 41, Alkaline Phosphatase 72, Troponin I < 0.01, Total Protein 7.4, Albumin 4.6, Globulin 2.8, Albumin/Globulin Ratio 1.6, D-Dimer High Sensitivty < 200, CBC w Diff NO MAN DIFF REQ, RBC 5.42, MCV 93.9, MCH 32.2 H, MCHC 34.3, RDW 14.0, MPV 6.2 L, Gran % 78.8 H, Lymphocytes % 6.2 L, Monocytes % 14.9 H, Eosinophils % 0.1, Basophils % 0, Absolute Granulocytes 8.9 H, Absolute Lymphocytes 0.7 L, Absolute Monocytes 1.7 H, Absolute Eosinophils 0, Absolute Basophils 0 Microbiology 10/21 2121 NASOPHARYN: Influenza Virus A & B Rapid Smear - COMP Assessment/Plan Impression/Plan: Impression 62 year old man acute exacerbation of COPD tobacco dependence etoh dependence Plan -zithromax 5 days -solumedrol 40mg iv 12h -nicotine replacement patch -trc/nebs -spo2 goal >92% DVT prophylaxis at all times Consult Acknowledgment - Thank you for your consult request.
[2017-10-22 11:59] VITALS: BP 164/73
[2017-10-22 17:37] VITALS: BP 150/89
[2017-10-22 22:00] VITALS: BP 160/92
[2017-10-22 22:14] VITALS: BP 160/92
[2017-10-23 02:00] VITALS: BP 150/80
[2017-10-23 06:00] VITALS: BP 140/84
[2017-10-23 06:26] VITALS: BP 140/84
--- NOTE | 2017-10-23 09:10 | PN- Housestaff ---
See Addendum Subjective Follow-up For: COPD exacerbation Hyponatremia Subjective: The patient was seen and examined. Has been having intermittent episodes of shortness of breath and anxiety. Otherwise denies any chest pain, dizziness, lightheadedness, nausea, vomiting, headache, abdominal pain, urinary symptoms. Vital signs remained stable, CIWA score 0. Review of Systems Constitutional: Reports: no symptoms. Objective Last 24 Hrs of Vital Signs/I&O Vital Signs Date Time Temp Pulse Resp B/P B/P Pulse O2 O2 Flow FiO2 Mean Ox Delivery Rate 10/23 1446 98.3 87 20 132/84 93 Room Air 10/23 1355 96 10/23 1028 Room Air Room Air 10/23 1024 95 Room Air Room Air 10/23 0800 Room Air 10/23 0626 97.6 88 20 140/84 97 Nasal 2.0L Cannula 10/23 0600 97.6 88 20 140/84 10/23 0356 96 Nasal 2.0L Cannula 10/23 0200 97.7 84 20 150/80 10/23 0000 97 Nasal 2.0L Cannula 10/22 2214 97.7 87 22 160/92 97 Nasal Cannula 10/22 2200 97.7 87 20 160/92 10/22 2138 97.6 76 22 146/76 96 Nasal 2.0L Cannula 10/22 1737 Room Air 10/22 1737 94.0 93 16 150/89 10/22 1737 97.9 93 16 150/89 94 Room Air Intake & Output 10/23 1600 10/23 0800 10/23 0000 Intake Total 250 260 490 Output Total Balance 250 260 490 Intake, IV 20 250 Intake, Oral 250 240 240 Physical Exam General Appearance: Alert, Oriented X3, Cooperative, No Acute Distress Other Physical Findings: Skin: scattered abrasions of the distal lower extremities. No evidence of blisters or bullae Skin Temp/Moisture Exam: Warm/Dry HEENT: Mucous Membr. moist/pink Neck: Supple Cardiovascular: Regular Rate, Normal S1, Normal S2 Lungs: CTABL, no wheezes Abdomen: Normal Bowel Sounds, Soft, No Tenderness Extremities: No Edema, Normal Pulses Vascular: Pulses Symmetrical Assessment/Plan Assessment: This is a 62-year-old gentleman with a PMH of COPD on nocturnal oxygen 2L, current tobacco use, EtOH use (6 beers per day), history of ulcerative colitis who presented to [facility] with complaints of 3 day duration worsening shortness of breath with minimal exertion, mild sore throat, runny nose, productive cough with brownish sputum. Patient had seen his meat butcher 2 day 's prior to presentation and was started on prednisone. VS on admission: BP 165/90, HR 108, RR 18, SPO2 94% on RA, T 98.0 Labs: WBC 11.3, 81% neutrophils, 7% bandemia, sodium 121, potassium 5.1, serum osmolality 257, glucose 135, magnesium 1.7, AST/ALT 68/40 EKG: Normal sinus rhythm, HR 105, QTC 450 D-dimer: < 200 CXR: hyperexpansion of lungs. There is no acute change. No pulmonary vascular congestion. There is no infiltrate or pleural effusion or pneumothorax. Heart size is normal. The cardiac and mediastinal contours are normal. There are calcifications of the aortic arch. Problem list/Plan: # COPD exacerbation * Symptoms improving * Chest x-ray does not show any evidence of consolidation thus pneumonia less likely at this time. * No change IV methylprednisolone to by mouth prednisone taper from tomorrow. * Mucolytic with mucinex 600mg PO BID for 3-5 days #Hyponatremia * Admission Serum sodium 121 with a low urine osmolality. Likely secondary to beer potomania * Patient was started on NS @ 100/hr with repeat sodium 126 fluids were discontinued. Today sodium level 128 #History of tobacco dependence * Continue with nicotine replacement 14 mg during day hours #GERD * GI prophylaxis with omeprazole 40 mg #History of EtOH use * Patient is a regular drinker with 6 beers per day. * CIWA score 0. #DVT prophylaxis with Lovenox 40 mg subcutaneous daily #Full code Problem List: 1. COPD exacerbation 2. Hyponatremia Pain Ratin Pain Location: NA Pain Goal: Remain pain free Pain Plan: NA Tomorrow's Labs & Rationales: BEP to monitor sodium level and electrolytes DVT/Prophylaxis: pharmacological
--- NOTE | 2017-10-23 12:04 | PN- Pulmonary ---
Subjective HPI/Critical Care Issues: pt seen and examined feeling better Objective Current Medications: Current Medications Sig/Oamr Start time Last Medication Dose Route Stop Time Status Admin Azithromycin 500 MG Q24H 10/22 2199 AC 10/22 Dextrose/Water 250 ML IV 2138 Enoxaparin Sodium 40 MG DAILY 10/22 1000 AC 10/23 SC 0822 Guaifenesin 10 ML .STK-MED ONE 10/23 0340 DC PO 10/23 0341 Guaifenesin 0 .STK-MED ONE 10/22 2002 DC PO Guaifenesin 600 MG Q12 10/22 1000 AC 10/23 PO 0807 Guaifenesin 10 ML Q6P PRN 10/22 0215 AC 10/23 PO 0343 Methylprednisolone 40 MG Q12 10/22 1000 AC 10/23 IV 0807 Nicotine 14 MG DAILY 10/22 1000 AC 10/23 TOP 0807 Omeprazole 40 MG DAILY AC 10/22 0700 AC 10/23 PO 0553 Sodium Chloride 1,000 ML Q10H 10/22 0530 DC 10/22 IV 0617 Vital Signs & I&O Last 24 Hrs of Vitals and I&O: Vital Signs Date Time Temp Pulse Resp B/P B/P Pulse O2 O2 Flow FiO2 Mean Ox Delivery Rate 10/23 1028 Room Air Room Air 10/23 1024 95 Room Air Room Air 10/23 0800 Room Air 10/23 0626 97.6 88 20 140/84 97 Nasal 2.0L Cannula 10/23 06 97.6 88 20 140/84 10/23 0356 96 Nasal 2.0L Cannula 10/23 0200 97.7 84 20 150/80 10/23 0000 97 Nasal 2.0L Cannula 10/22 2213 97.7 87 22 160/92 97 Nasal Cannula 10/22 2200 97.7 87 20 160/92 10/22 2137 97.6 76 22 146/76 96 Nasal 2.0L Cannula 10/22 1737 Room Air 10/22 1737 94.0 93 16 150/89 10/22 1737 97.9 93 16 150/89 94 Room Air Intake & Output 10/23 1600 10/23 0800 10/23 0000 Intake Total 260 490 Output Total Balance 260 490 Intake, IV 20 250 Intake, Oral 240 240 Exam Other Physical Findings: alert and awake rare rhonchi abd soft, bs+ ext without edema Results Last 24 Hrs of Lab Results: Laboratory Tests 10/23/17 0727: Anion Gap 8, Estimated GFR > 60, BUN/Creatinine Ratio 24.0 10/22/17 1215: Impression/Plan Impression/Plan Impression/Plan: Impression 62 year old man acute exacerbation of COPD tobacco dependence etoh dependence Plan -zithromax 5 days -continue solumedrol 40mg iv 12h - reduce to po prednisone in am -assess o2 needs -nicotine replacement patch -trc/nebs -spo2 goal >92% DVT prophylaxis at all times
[2017-10-23 14:46] VITALS: BP 132/84
[2017-10-23 21:10] VITALS: BP 144/82
[2017-10-24 01:48] VITALS: BP 156/88
[2017-10-24 06:14] VITALS: BP 138/82
--- NOTE | 2017-10-24 07:57 | PN- Housestaff ---
Ge Quintana 10/24/17 0757: Subjective Follow-up For: COPD exacerbation Hyponatremia Subjective: The patient was seen and examined. Offers no complaints. Denies any dizziness, lightheadedness, nausea, vomiting, chest pain, shortness, abdominal pain. Vital signs remained stable Review of Systems Constitutional: Reports: no symptoms. Objective Last 24 Hrs of Vital Signs/I&O Vital Signs Date Time Temp Pulse Resp B/P B/P Pulse O2 O2 Flow FiO2 Mean Ox Delivery Rate 10/24 1131 98 Room Air Room Air 10/24 0951 97.1 102 20 140/80 97 Room Air 10/24 0614 97.6 89 20 138/82 93 Room Air 10/24 0148 97.7 62 18 156/88 93 Room Air 10/23 2110 98.3 79 18 144/82 93 Intake & Output 10/24 1600 10/24 0800 10/24 0000 Intake Total 370 250 Output Total Balance 370 250 Intake, IV 20 150 Intake, Oral 350 100 Physical Exam General Appearance: Alert, Cooperative, No Acute Distress Other Physical Findings: Skin: scattered abrasions of the distal lower extremities. No evidence of blisters or bullae Skin Temp/Moisture Exam: Warm/Dry HEENT: Mucous Membr. moist/pink Neck: Supple Cardiovascular: Regular Rate, Normal S1, Normal S2 Lungs: CTABL, no wheezes Abdomen: Normal Bowel Sounds, Soft, No Tenderness Extremities: No Edema, Normal Pulses Vascular: Pulses Symmetrical Current Medications: Current Medications Sig/Omar Start time Last Medication Dose Route Stop Time Status Admin Azithromycin 500 MG Q24H 10/22 2200 DCD 10/23 Dextrose/Water 250 ML IV 2117 Enoxaparin Sodium 40 MG DAILY 10/22 1000 DCD 10/24 SC 0843 Guaifenesin 10 ML .STK-MED ONE 10/23 2116 DC PO 10/23 2117 Guaifenesin 600 MG Q12 10/22 1000 DCD 10/24 PO 0843 Guaifenesin 10 ML Q6P PRN 10/22 0215 DCD 10/23 PO 2119 Methylprednisolone 40 MG Q12 10/22 1000 DC 10/23 IV 10/24 0000 2118 Nicotine 14 MG DAILY 10/22 1000 DCD 10/24 TOP 0843 Omeprazole 40 MG DAILY AC 10/22 0700 DCD 10/24 PO 0630 Patient Medication 1 ED ONE 10/24 0000 NR [facility] ED 10/24 2359 Prednisone 50 MG DAILY 10/24 0900 DCD 10/24 PO 0843 Last 24 Hrs of Lab/Gage Results Last 24 Hrs of Labs/Mics: Laboratory Tests 10/24/17 0800: Anion Gap 10, Estimated GFR > 60, BUN/Creatinine Ratio 21.7 Assessment/Plan Assessment: This is a 62-year-old gentleman with a PMH of COPD on nocturnal oxygen 2L, current tobacco use, EtOH use (6 beers per day), history of ulcerative colitis who presented to [place] ED with complaints of 3 day duration worsening shortness of breath with minimal exertion, mild sore throat, runny nose, productive cough with brownish sputum. Patient had seen his showroom consultant 2 day 's prior to presentation and was started on prednisone. VS on admission: BP 165/90, HR 108, RR 18, SPO2 94% on RA, T 98.0 Labs: WBC 11.3, 81% neutrophils, 7% bandemia, sodium 121, potassium 5.1, serum osmolality 257, glucose 135, magnesium 1.7, AST/ALT 68/40 EKG: Normal sinus rhythm, HR 105, QTC 450 D-dimer: < 200 CXR: hyperexpansion of lungs. There is no acute change. No pulmonary vascular congestion. There is no infiltrate or pleural effusion or pneumothorax. Heart size is normal. The cardiac and mediastinal contours are normal. There are calcifications of the aortic arch. Problem list/Plan: # COPD exacerbation * Symptoms improving * Chest x-ray does not show any evidence of consolidation thus pneumonia less likely at this time. * To be discharged on by mouth prednisone taper and azithromycin. * Mucolytic with mucinex 600mg PO BID for 3-5 days * Has been using nocturnal oxygen at home sporadically. Recently gave up his prescribed oxygen is awaiting to receive his concentrator soon. * To follow with Dr. Warren as an outpatient #Hyponatremia-improving * Admission Serum sodium 121 with a low urine osmolality. Likely secondary to beer potomania * Patient was started on NS @ 100/hr with repeat sodium 126 fluids were discontinued. Today sodium level 130 * Further monitoring and follow-up can be done as an outpatient #History of tobacco dependence * Continue with nicotine replacement 14 mg during day hours #GERD * GI prophylaxis with omeprazole 40 mg #History of EtOH use * Patient is a regular drinker with 6 beers per day. * CIWA score 0. #DVT prophylaxis with Lovenox 40 mg subcutaneous daily #Full code Problem List: 1. COPD exacerbation Pain Ratin Pain Location: NA Pain Goal: Remain pain free Pain Plan: NA Tomorrow's Labs & Rationales: Reuben Mitchell MD 10/24/17 1458: Attending MD Review Statement Attending Statement Attending MD Statement: examined this patient, discuss w/resident/PA/CLINIC CHARGE NURSE, agreed w/resident/PA/CLINIC CHARGE NURSE, reviewed EMR data (avail), discussed with nursing, discussed with case mgmt, amended to note Attending Assessment/Plan: The patient was seen and discussed with house staff, case management and Pulmonary (Dr. Warren). His pulse ox is normal and OK to discharge off of oxygen at present (he gave up nighttime oxygen and will be getting concentrator soon). Dr. Warren is aware. OP follow-up with Dr. Warren and PCP.
[2017-10-24 09:51] VITALS: BP 140/80
--- NOTE | 2017-10-24 11:00 | Patient Discharge Instructions ---
Discharge Instructions General Discharge Information You were seen/treated for: COPD exacerbation Special Instructions: -Please follow-up with your primary care doctor within a week of discharge. -Please follow-up with your dispatcher bus and trolley, Dr. Warren within a week of discharge. -Please take your medications as instructed. -Please return to the hospital if your symptoms not improve/worsen. Diet Continue normal diet: Yes Activity Additional ACTIVITY Info: As tolerated Acute Coronary Syndrome Inclusion Criteria At DC or during hospital stay patient has or had the following: Discharge Core Measures Meds if any: Prescribed or Continued at Discharge Meds if any: NOT Prescribed or Continued at Discharge Congestive Heart Failure Inclusion Criteria At DC or during hospital stay patient has or had the following: Discharge Core Measures Meds if any: Prescribed or Continued at Discharge Meds if any: NOT Prescribed or Continued at Discharge Cerebrovascular accident Inclusion Criteria At DC or during hospital stay patient has or had the following: CVA/TIA Diagnosis No Discharge Core Measures Meds if any: Prescribed or Continued at Discharge Meds if any: NOT Prescribed or Continued at Discharge Venous thromboembolism Discharge Core Measures - Per Current guidelines, there needs to be overlap - treatment for the first 5 days of Warfarin therapy. - If discharged on Warfarin prior to 5 days of - overlap therapy, the patient will need to be - assessed for post discharge needs including - *Post discharge parental anticoagulation - *Warfarin and/or parental anticoagulation education - *Follow up date to check INR post discharge Meds if any: Prescribed or Continued at Discharge Note: Overlap Therapy is Warfarin and Anticoagulant Meds if any: NOT Prescribed or Continued at Discharge
[2017-10-24] MEDS ORDERED: GUAIFENESIN ER600 MG PO (11:16)
[2017-10-24] MEDS ORDERED: ZITHROMAX500 M2 PO (11:19)
--- NOTE | 2017-10-24 12:12 | PN- Pulmonary ---
Subjective HPI/Critical Care Issues: pt seen and examined off o2 awaiting dc Objective Current Medications: Current Medications Sig/Omar Start time Last Medication Dose Route Stop Time Status Admin Azithromycin 500 MG Q24H 10/22 2199 AC 10/23 Dextrose/Water 250 ML IV 2117 Enoxaparin Sodium 40 MG DAILY 10/22 1000 AC 10/24 SC 0843 Guaifenesin 10 ML .STK-MED ONE 10/24 2115 DC PO 10/23 2116 Guaifenesin 600 MG Q12 10/22 1000 AC 10/24 PO 0843 Guaifenesin 10 ML Q6P PRN 10/22 0215 AC 10/23 PO 2119 Methylprednisolone 40 MG Q12 10/22 1000 DC 10/23 IV 10/24 0000 2118 Nicotine 14 MG DAILY 10/22 1000 AC 10/24 TOP 0843 Omeprazole 40 MG DAILY AC 10/22 0700 AC 10/24 PO 0630 Prednisone 50 MG DAILY 10/24 0900 AC 10/24 PO 0843 Vital Signs & I&O Last 24 Hrs of Vitals and I&O: Vital Signs Date Time Temp Pulse Resp B/P B/P Pulse O2 O2 Flow FiO2 Mean Ox Delivery Rate 10/24 1131 98 Room Air Room Air 10/24 0951 97.1 102 20 140/80 97 Room Air 10/24 0614 97.6 89 20 138/82 93 Room Air 10/24 0148 97.7 62 18 156/88 93 Room Air 10/23 2110 98.3 79 18 144/82 93 10/23 1600 97 Room Air 10/23 1446 98.3 87 20 132/84 93 Room Air 10/23 1355 96 Intake & Output 10/24 1600 10/24 0800 10/24 0000 Intake Total 370 250 Output Total Balance 370 250 Intake, IV 20 150 Intake, Oral 350 100 Exam Other Physical Findings: alert and awake rare rhonchi abd soft, bs+ ext without edema Results Last 24 Hrs of Lab Results: Laboratory Tests 10/24/17 0800: Anion Gap 10, Estimated GFR > 60, BUN/Creatinine Ratio 21.7 Impression/Plan Impression/Plan Impression/Plan: Impression 62 year old man acute exacerbation of COPD tobacco dependence etoh dependence Plan -complete course of zithromax -taper prednisone by 10mg every 2 days -smoking cessation - counseled -trc/nebs -spo2 goal >92% DVT prophylaxis at all times DC planning - okay to dc from pulmonary perspective
[2017-10-24] MEDS ORDERED: PREDNISONE10 M2 PO (13:16)
[2017-10-24] MEDS ORDERED: PROVENTIL HFA6.7 GM INH (13:17)
--- NOTE | 2017-10-24 14:32 | Event Note ---
Event Note Event Note: Called in patient's prednisone taper to the pharmacy. Informed the patient.
--- NOTE | 2017-10-24 20:35 | Discharge Summary ---
Visit Information Visit Dates Admission Date: 10/21/17 Discharge Date: 10/24/17 Hospital Course Course Attending Physician: Reuben Stevens MD Primary Care Physician: Geremias Claire MD Consulting Request: Consulting Specialty: Pulmonary Disease Hospital Course: This is a 62-year-old gentleman with a PMH of COPD on nocturnal oxygen 2L, current tobacco use, EtOH use (6 beers per day), history of ulcerative colitis who presented to [facility] ED with complaints of 3 day duration worsening shortness of breath with minimal exertion, mild sore throat, runny nose, productive cough with brownish sputum. Patient had seen his classifier tender 2 day 's prior to presentation and was started on prednisone. Vital signs on admission: Vital Signs Date Time Temp Pulse Resp B/P B/P Pulse O2 O2 Flow FiO2 Mean Ox Delivery Rate 10/22 0141 97 Nasal 2.0L Cannula 10/22 0016 98.1 93 25 153/94 95 Nasal 2.0L Cannula 10/22 2115 98.4 93 20 166/82 96 Room Air Room Air 10/22 2115 94 10/21 1923 98.0 108 18 165/90 94 Room Air Labs: WBC 11.3, 81% neutrophils, 7% bandemia, sodium 121, potassium 5.1, serum osmolality 257, glucose 135, magnesium 1.7, AST/ALT 68/40 D-dimer: < 200 EKG: Normal sinus rhythm, HR 105, QTC 450 CXR: Hyperexpansion of lungs. There is no acute change. No pulmonary vascular congestion. There is no infiltrate or pleural effusion or pneumothorax. Heart size is normal. The cardiac and mediastinal contours are normal. There are calcifications of the aortic arch. The following problems were addressed during the course of his hospital stay: # COPD exacerbation: He was started on IV steroids and IV azithromycin. Was evaluated by pulmonary service. Received mucolytic therapy with Mucinex, was maintained on supplemental oxygen. His symptoms improved during the course of his hospital stay he was discharged on prednisone taper and by mouth azithromycin to complete a five-day course of therapy. He was shocked her to follow-up with his classifier tender, Dr. Warren as an outpatient. He reported that he has been using his nocturnal oxygen sporadically at home also recently gave up his prescription oxygen and ordered concentrator on line. #Hyponatremia: The patient presented with sodium level of 121 with a low urine osmolality. It was thought to be secondary to beer potomania. Initially received IV normal saline. -improving * Admission Serum sodium 121 with a low urine osmolality. Likely secondary to beer potomania * Patient was started on NS @ 100/hr with repeat sodium 126 fluids were discontinued. Today sodium level 130 * Further monitoring and follow-up can be done as an outpatient #History of tobacco dependence * Continue with nicotine replacement 14 mg during day hours #GERD * GI prophylaxis with omeprazole 40 mg #History of EtOH use * Patient is a regular drinker with 6 beers per day. * CIWA score 0. #DVT prophylaxis with Lovenox 40 mg subcutaneous daily #Full code Allergies: Coded Allergies: NO KNOWN ALLERGIES (05/29/16) Discharge Instructions Medications at Discharge Discharge Medications: Stop taking the following medications: Prednisone (Prednisone) 10 MG TABLET ORAL See Instructions Qty = 40 Continue taking these medications: Fluticasone-Salmeterol (Advair 100-50 Diskus) 1 EACH BLST.W.DEV 1 Puff Inhale through mouth TWICE DAILY Qty = 1 Omeprazole (Omeprazole) 40 MG CAPSULE.DR 1 Capsule ORAL DAILY Qty = 30 Nystatin (Nystatin) 100,000 UNIT/ML ORAL.SUSP 5 Milliliters ORAL 4 TIMES A DAY as needed for YEAST INFECTION Qty = 2 Comments: LAST GIVEN 11/11/16 @ 1000 Tiotropium Walnut (Spiriva) 18 MCG CAP.W.DEV 1 Capsule Inhale through mouth DAILY Qty = 30 Comments: NOT GIVEN Albuterol Sulfate (Proventil Hfa) 6.7 GM HFA.AER.AD 2 Puff Inhale through mouth Every 4 hours Qty = 1 This prescription has been renewed Start taking the following new medications: Guaifenesin (Guaifenesin ER) 600 MG TAB.ER.12H 1 Tablet ORAL EVERY 12 HOURS Qty = 14 No Refills Comments: NOT GIVEN IN HOSPITAL Azithromycin (Zithromax) 500 MG TABLET 1 Capsule ORAL DAILY Qty = 2 No Refills Comments: IV FORM GIVEN IN HOSPITAL Prednisone (Prednisone) 10 MG TABLET 0 ORAL SEE INSTRUCTIONS Qty = 42 No Refills Instructions: 5 tabs(50MG) on 10/25, 10/26 4 tabs on 10/27,10/28,10/29 3 tabs on 10/30,10/31,11/01 2 tabs on 11/02,11/03,11/04 1 tab on 11/05,11/06,11/07 0.5 tab on 11/08,11/09,11/10 then stop Comments: Last Taken: 10/24/17 Time: 8:00 AM
== END 2017-10-24 14:00 | DRG 191 ==
LOC: ERH 18:58 → ERHI 22:22 → ENRESERV 10-22 21:03 → ENTRNSPT 10-22 21:40 → CMPTRNSPT 10-22 21:57 → ERHI 10-22 22:02 → 2NA 10-22 22:04 → ENTRNSPT 10-24 13:52 → 2NA 10-24 14:00 → EDTRNSPTSTS 10-24 14:00 → EDTRNSPT 10-24 14:00 → CMPTRNSPT 10-24 14:29
PROVIDERS: Internal Medicine; Physician Assistant Medical
DX: J44.1 Chronic obstructive pulmonary disease with (acute) exacerbation (principal); E87.1 Hypo-osmolality and hyponatremia; Z99.81 Dependence on supplemental oxygen; F17.210 Nicotine dependence, cigarettes, uncomplicated; R91.1 Solitary pulmonary nodule; K52.9 Noninfective gastroenteritis and colitis, unspecified; Z79.51 Long term (current) use of inhaled steroids; Z79.52 Long term (current) use of systemic steroids; F10.10 Alcohol abuse, uncomplicated; E86.1 Hypovolemia; K21.9 Gastro-esophageal reflux disease without esophagitis
CPT/HCPCS: 2NASP; 84133; 84300; ERO; 36592; 71046; 82436; 82570; 87070; 87071; 87804; 87804-59; 93005; 93010; 96374; 96375; J0456; J1650; J2920; J2930; J7060; J7512

== ENCOUNTER 2017-12-10 06:02 | Inpatient (IN) | payer OTHER ==
[~2017-12-10] VITALS: Ht 185.4 cm; Wt 68.0 kg
[~2017-12-10 06:02] MED LIST changes: +GUAIFENESIN ER600 MG PO; +ZITHROMAX500 M2 PO
--- NOTE | 2017-12-10 06:09 | ED DYSPNEA/ASTHMA COMPLAINT ---
History of Present Illness General Chief Complaint: Dyspnea (COPD, CHF, Other) Stated Complaint: DIFF BREATHING CHEST PAIN HX COPD Source: patient, family Exam Limitations: no limitations Vital Signs & Intake/Output Vital Signs & Intake/Output Vital Signs Date Time Temp Pulse Resp B/P B/P Pulse O2 O2 Flow FiO2 Mean Ox Delivery Rate 12/10 0838 98.4 95 18 140/72 95 Room Air 12/10 0700 98 18 159/83 96 Room Air 12/10 0649 97 Room Air 12/10 0638 95 12/10 0606 97.6 99 18 170/99 97 Room Air Allergies Coded Allergies: NO KNOWN ALLERGIES (05/29/16) Reconcile Medications Albuterol Sulfate (Proventil Hfa) 6.7 GM HFA.AER.AD 2 PUF INH Q4 SOB Azithromycin (Zithromax) 500 MG TABLET 1 CAP PO DAILY COPD exacerbation Fluticasone-Salmeterol (Advair 100-50 Diskus) 1 EACH BLST.W.DEV 1 PUF INH BID COPD Guaifenesin (Guaifenesin ER) 600 MG TAB.ER.12H 1 TAB PO Q12 Cough Nystatin 100,000 UNIT/ML ORAL.SUSP 5 ML PO 4 TIMES/DAY PRN YEAST INFECTION Omeprazole 40 MG CAPSULE.DR 1 CAP PO DAILY acid reflux Prednisone 10 MG TABLET 0 PO SEE ADMIN CRITERIA Steroid taper 5 tabs(50MG) on 10/25, 10/26 4 tabs on 10/27,10/28,10/29 3 tabs on 10/30,10/31,11/01 2 tabs on 11/02,11/03,11/04 1 tab on 11/05,11/06,11/07 0.5 tab on 11/08,11/09,11/10 then stop Tiotropium Vivian (Spiriva) 18 MCG CAP.W.DEV 1 CAP INH DAILY COPD Triage Nurses Notes Reviewed? yes Onset: Gradual Duration: day(s): Timing: recent history Severity: moderate Activities at Onset: none Prior Episodes/Possible Cause: occasional episodes Modifying Factors: Improves With: rest. Associated Symptoms: cough, wheezing HPI: 62-year-old gentleman history of COPD presents with 4 day history of cough and wheezing. He states that over the past few days the wheezing worsened, and is now productive of thick phlegm. He has taken his albuterol nebs several times throughout the day and last night without significant improvement. He notes dyspnea at rest, with difficulty completing sentences and difficulty with ambulation. He has no chest pain or swelling of his lower extremities fevers chills dizziness diaphoresis. He is otherwise well. (Nyla ALVAREZ,Tim Burton) Past History Travel History Traveled to [place] past 21 day No Medical History Any Pertinent Medical History? see below for history Neurological: NONE EENT: NONE Cardiovascular: NONE Respiratory: COPD, emphysema Gastrointestinal: NONE Hepatic: NONE Renal: NONE Musculoskeletal: NONE Psychiatric: NONE Endocrine: NONE Blood Disorders: NONE Cancer(s): NONE TAG MARKER/Reproductive: NONE History of MRSA: No History of VRE: No History of CDIFF: No Influenza Vaccine: 03/14/17 Surgical History Surgical History: NOSE CYST Psychosocial History Who do you live with Spouse Services at Home None What is your primary language Vietnamese Tobacco Use: Current Daily Use Daily Tobacco Use Amount/Type: => 5 Cigarettes daily Family History Family History, If Any: Relation not specified for: *No pertinent family history Hx Contributory? No (Nyla ALVAREZ,Tim Burton) Review of Systems Review of Systems Constitutional: Denies: see HPI. (Nyla ALVAREZ,Tim Burton) Physical Exam Physical Exam Respiratory: wheezing, sEE BELOW Comments: Review of Systems - except as otherwise noted in HPI Review of Systems Constitutional:no symptoms. EENTM:no symptoms. Respiratory:no symptoms. Cardiovascular:no symptoms. GI:no symptoms. Genitourinary:no symptoms. Musculoskeletal:no symptoms. Skin:no symptoms. Neurological/Psychological:no symptoms. Hematologic/Endocrine:no symptoms. Immunologic/Allergic:no symptoms. All Other Systems: Reviewed and Negative Physical Exam Physical Exam General Appearance: well developed/nourished, no apparent distress Head: atraumatic, normal appearance Eyes: Bilateral: normal appearance. Ears, Nose, Throat: normal pharynx, normal ENT inspection Neck: normal inspection, supple, full range of motion Respiratory: chest non-tender, no respiratory distress, quiet respiration, bilateral wheezing with prolonged expiratory phase. No use of accessory muscles. Patient able to speak in complete sentences but with mild discomfort Cardiovascular: regular rate/rhythm Gastrointestinal: normal bowel sounds, soft, non-tender, no organomegaly Back: normal inspection, normal range of motion Extremities: normal inspection, normal capillary refill, normal range of motion, no edema Neurologic/Psych: no motor/sensory deficits, awake, alert, oriented x 3 Skin: intact, normal color, warm/dry Core Measures ACS in differential dx? No CVA/TIA Diagnosis No Sepsis Present: No Sepsis Focused Exam Completed? No (Nyla ALVAREZ,Tim Burton) Progress Differential Diagnosis: asthma, bronchitis, CHF, COPD, pneumonia Plan of Care: Orders Procedure Date/time Status Add-on Test (ER Only) 12/10 624 Active BLOOD CULTURE 12/10 624 Active BLOOD CULTURE 12/11 623 Active D-DIMER 12/10 620 Complete B-TYPE NATRIURETIC PEP (BNP) 12/10 620 Complete TROPONIN LEVEL 12/11 619 Complete COMPREHENSIVE METABOLIC PANEL 12/11 619 Complete CBC WITHOUT DIFFERENTIAL 12/11 619 Complete EKG 12/10 606 Active Laboratory Tests 12/10/17623: D-Dimer High Sensitivty Cancelled 12/10/17620: Anion Gap 12, Estimated GFR > 60, BUN/Creatinine Ratio 23.3, Glucose 126 H, Calcium 9.6, Total Bilirubin 1.3, AST 43, ALT 44, Alkaline Phosphatase 77, Troponin I 0.02, Gms-X-Zgfwxhorjst Pept 48.5, Total Protein 7.2, Albumin 4.3, Globulin 2.9, Albumin/Globulin Ratio 1.5, D-Dimer High Sensitivty < 200, CBC w Diff MAN DIFF ORDERED, RBC 5.41, MCV 96.0 H, MCH 32.9 H, MCHC 34.2, RDW 14.8 H, MPV 6.0 L, Gran % 86.1 H, Lymphocytes % 5.9 L, Monocytes % 7.1, Eosinophils % 0.6, Basophils % 0.3, Absolute Granulocytes 11.9 H, Segmented Neutrophils 82 H, Absolute Lymphocytes 0.8 L, Lymphocytes 13 L, Monocytes 5, Absolute Monocytes 1.0 H, Absolute Eosinophils 0.1, Absolute Basophils 0, Platelet Estimate ADEQUATE, Polychromasia 1+, Ovalocytes FEW, Fld Total RBCs Counted 100 Microbiology 12/10 629 BLOOD: Blood Culture - RECD 12/10 624 BLOOD: Blood Culture - RECD Diagnostic Imaging: Viewed by Me: Radiology Read. Discussed w/RAD: Radiology Read. Initial ED EKG: SINUS RHYTHM NO ACUTE CHANGES FROM PRIOR Hand-Off Endorsed To: Gael Harman DO Endorsed Time: 0700 Pending: labs, Xray (Nyla ALVAREZ,Tim Burton) CXR Impression: no acute abnormality, no infiltrates, hyperinflated Hand-Off Endorsed To: Gael Harman DO Comments: Dr. Harman addendum: I assumed care from Dr. Redmond at 7 AM at shift change. At that time, we were awaiting laboratory studies and chest x-ray results, as well as clinical progress with nebulizers and steroids. Chest x-ray showed no acute infiltrate, only hyperinflated lungs consistent with COPD. Laboratory studies were markedly abnormal showing hyponatremia to 127. I reassessment, the patient was still profoundly weak, complaining of ongoing chest discomfort and tightness, and while his breathing was better and he was able to speak in full sentences without getting breathless, his oxygen saturation dropped to the mid 80s even with the light activity of sitting up straight in bed. I feel that discharge home would be inappropriate at this time, and admission for his metabolic abdomen on his, including his hypernatremia, as well as his COPD exacerbation is warranted. (Gael Harman DO) Departure Departure Disposition: STILL A PATIENT Clinical Impression Primary Impression: COPD exacerbation Referrals: Geremias Claire MD (PCP/Family) Departure Forms: Customer Survey General Discharge Information Comments 12/10/17, 6:45AM - pt tolerating nebs well... labs/cxr pending... pt to be signed out to dr. harman at 7am. (Nyla ALVAREZ,Tim Burton) Departure Condition: Guarded Admission Note Spoke With: Nivia Lundberg MD Documentation of Exam: Documentation of any treatments & extenuating circumstances including Concerns Regarding Discharge (functional status, medication knowledge or non-compliance, living conditions, etc.) that warrant an admission rather than observation: Patient presented for COPD exacerbation. Chest x-ray was negative, but after nebulizers and steroids he did not progress clinically well enough to be safely discharged home. He experienced oxygen desaturation despite supplemental nasal cannula oxygen at 2 L with even minor activity of sitting up in bed from his supine position. Walking was not even possible. The patient will require further therapy for his COPD exacerbation. He also has a sodium of 127, likely contributing to his profound weakness. This will require gentle fluid rehydration and trending. Admitted in guarded but improved condition. (Gael Harman DO) Critical Care Note Critical Care Note Critical Care Time: non-applicable (Nyla ALVAREZ,Tim Burton) Critical Care Note Critical Care Time: non-applicable (Gael Harman DO) ED Attending Observation Initial Observation Note: I have seen and personally examined DENA FULLER on 12/10/17 at 0838. I agree with the current emergency department documentation. The disposition (admission or discharge) is uncertain at this time, he needs a period of observation for the following reason(s): The ED Nurse caring for this patient has been personally informed as to what the patient is being observed for. (Gael Harman DO)
[2017-12-10 06:31] LABS: ABSOLUTE BASOPHIL COUNT 0 /CUMM (0.0-0.2); ABSOLUTE EOSINOPHIL COUNT 0.1 /CUMM (0.0-0.7); ABSOLUTE GRANULOCYTE CT 11.9 /CUMM (1.4-6.5); ABSOLUTE LYMPH COUNT 0.8 /CUMM (1.2-3.4); BASOPHIL % 0.3 % (0.0-2.0); EOSINOPHIL % 0.6 % (0-5); GRANULOCYTE % 86.1 % (42.2-75.2); HEMATOCRIT 51.9 % (42-52); MEAN CORPUSCULAR HGB 32.9 PG (27.0-31.0); MEAN CORPUSCULAR HGB CONC 34.2 G/DL (33.0-37.0); PLATELET COUNT 301 /CUMM (130-400); RBC DISTRIBUTION WIDTH 14.8 % (11.5-14.5); RED BLOOD CELL CT 5.41 /CUMM (4.70-6.10); WHITE BLOOD CELL COUNT 13.9 /CUMM (4.8-10.8)
--- NOTE | 2017-12-10 07:52 | RADIOLOGY REPORT ---
EXAMINATION: XR PORTABLE CHEST CLINICAL INFORMATION: Dyspnea. COMPARISON: Chest 10/21/2017. TECHNIQUE: Portable frontal view of the chest was obtained. FINDINGS: Both lungs are hyperinflated but clear of acute pneumonic process. Heart size and pulmonary vascularity is normal. No gross bony abnormality seen. IMPRESSION: Hyperinflated lungs especially worse in the both upper lobes likely emphysema. No acute pneumonic process seen. No change from 10/21/2017 chest exam.
--- NOTE | 2017-12-10 10:45 | Admission Certification ---
Admission Certification Certification Statement - As attending physician, I certify that at the time of - admission, based on clinical presentation, severity of - symptoms, need for further diagnostic testing and - therapeutic interventions, and risk of adverse outcomes - without in-hospital treatment, in my clinical assessment, - this patient requires an acute hospital stay for a minimum - of two nights or longer. I have also considered psychsocial - factors such as support system, advanced age, financial - issues, cognitive issues, and failed out-patient treatments, - past re-admission history, safety of patient, and lack of - compliance as applicable. Specific rationale supporting this admission is: acute copd exacerbation
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
[2017-12-10 16:27] VITALS: BP 134/80
[2017-12-10 21:54] VITALS: BP 118/60
[2017-12-11 06:54] VITALS: BP 124/68
[2017-12-11 08:29] LABS: ABSOLUTE BASOPHIL COUNT 0 /CUMM (0.0-0.2); ABSOLUTE EOSINOPHIL COUNT 0 /CUMM (0.0-0.7); ABSOLUTE GRANULOCYTE CT 14.9 /CUMM (1.4-6.5); ABSOLUTE LYMPH COUNT 0.7 /CUMM (1.2-3.4); BASOPHIL % 0 % (0.0-2.0); EOSINOPHIL % 0 % (0-5); MEAN CORPUSCULAR HGB CONC 34.4 G/DL (33.0-37.0); MEAN CORPUSCULAR VOLUME 95.9 FL (80.0-94.0); MEAN PLATELET VOLUME 6.4 FL (7.4-10.4); RBC DISTRIBUTION WIDTH 14.8 % (11.5-14.5); RED BLOOD CELL CT 4.83 /CUMM (4.70-6.10); WHITE BLOOD CELL COUNT 16.6 /CUMM (4.8-10.8)
--- NOTE | 2017-12-11 08:35 | PN- Housestaff ---
See Addendum Subjective Follow-up For: COPD exacerbation Subjective: Feels better this am. Still coughing, improving. No fevers or chills. Review of Systems Constitutional: Reports: see HPI. Objective Last 24 Hrs of Vital Signs/I&O Vital Signs Date Time Temp Pulse Resp B/P B/P Pulse O2 O2 Flow FiO2 Mean Ox Delivery Rate 12/11 0853 95 Room Air Room Air 12/11 0654 98.5 91 18 124/68 96 Room Air 12/11 0000 Room Air 12/10 2217 Room Air Room Air 12/10 2154 98.3 84 18 118/60 92 Room Air 12/10 1630 96 Room Air 12/10 1627 98.0 73 18 134/80 95 Room Air 12/10 1520 98.1 85 20 147/77 95 Room Air 12/10 1330 98.5 90 20 145/81 93 12/10 1041 98.0 92 20 140/80 94 Room Air Intake & Output 12/11 1600 12/11 0800 12/11 0000 Intake Total 120 Output Total Balance 120 Intake, Oral 120 Patient 150 lb 180 lb Weight Weight Reported by Patient Measurement Method Physical Exam General Appearance: Alert, Oriented X3 HEENT: Atraumatic, PERRLA, EOMI Cardiovascular: Regular Rate, Normal S1, Normal S2 Lungs: Clear to Auscultation, Normal Air Movement Abdomen: Normal Bowel Sounds, Soft, No Tenderness Extremities: No Clubbing, No Cyanosis Current Medications: Current Medications Sig/Omar Start time Last Medication Dose Route Stop Time Status Admin Albuterol Sulfate 3 ML BID 12/11 0900 AC 12/11 INH 0852 Albuterol Sulfate 2 PUF Q4 12/10 1400 AC 12/11 INH 0906 Azithromycin 500 MG DAILY 12/11 0900 AC 12/11 Sodium Chloride 250 ML IV 0905 Budesonide/ 2 PUF BID 12/10 1052 AC 12/11 Formoterol Fumarate INH 0906 Enoxaparin Sodium 40 MG DAILY 12/11 0900 AC 12/11 SC 0907 Guaifenesin 600 MG Q12 12/10 1052 AC 12/11 PO 0907 Ibuprofen 600 MG Q12 12/10 1048 AC 12/11 PO 0908 Methylprednisolone 40 MG DAILY 12/12 0900 AC IV 12/21 0901 Methylprednisolone 40 MG Q12 12/10 2100 DC 12/11 IV 12/16 0901 0908 Nicotine 0 .STK-MED ONE 12/10 1607 DC TOP Nicotine 21 MG ONCE ONE 12/10 1600 DC 12/10 TOP 12/10 1601 1600 Omeprazole 40 MG DAILY AC 12/10 1052 AC 12/11 PO 0556 Tiotropium [place] 1 PUF DAILY 12/10 1052 12/11 INH 0908 Last 24 Hrs of Lab/Gage Results Last 24 Hrs of Labs/Mics: Laboratory Tests 12/11/17 0720: Anion Gap 7, Estimated GFR > 60, BUN/Creatinine Ratio 16.7, CBC w Diff NO MAN DIFF REQ, RBC 4.83, MCV 95.9 H, MCH 33.0 H, MCHC 34.4, RDW 14.8 H, MPV 6.4 L , Gran % 89.6 H, Lymphocytes % 4.2 L, Monocytes % 6.2, Eosinophils % 0, Basophils % 0, Absolute Granulocytes 14.9 H, Absolute Lymphocytes 0.7 L, Absolute Monocytes 1.0 H, Absolute Eosinophils 0, Absolute Basophils 0 12/10/17 1104: Ur Random Creatinine 80.9, Ur Random Sodium 16 L, Ur Random Potassium 67.5, Fraction Sodium Excret 0.1 12/10/17 1104: Urine Opiates Screen < 100, Methadone Screen < 40, Barbiturate Screen < 60, Ur Phencyclidine Scrn < 6.00, Amphetamines Screen < 100, U Benzodiazepines Scrn < 85, Urine Cocaine Screen < 50, Urine Cannabis Screen < 5.00, Ur Random Creatinine Cancelled, Ur Random Sodium Cancelled, Ur Random Potassium Cancelled, Fraction Sodium Excret Cancelled Microbiology 12/10 110 URINE ROUT: Legionella Antigen - COMP 12/11 1103 URINE ROUT: Streptococcus pneumoniae Antigen (M - COMP Assessment/Plan Assessment: 62-year-old gentleman with history of COPD, daily alcohol use, current everyday smoker with recent increase in small number of cigarettes, here for COPD exacerbation likely secondary to combination of seasonal allergies, increased number of cigarettes, nature of his occupation, inability to be prescribed long- acting bronchodilator due to insurance issues and a recent episode of excess smoke exposure. He continues to drink 6 beers per night. 1. COPD exacerbation. Goal O2 sats greater than 90-92%. IV Solu-Medrol 40 mg x 1 today. Transition to PO Pred and Zithro tomorrow. Continue IV azithromycin. TRC. Inhaled pripdrcgmcubixy-[id number]-[id number] as well as long-acting prudent for his level of obstructive lung disease. Continue inhaled steroid therapy with Symbicort. Sravanio upon discharge. Pleuritic chest pain. Continue NSAIDs. 2. Alcohol use disorder. [facility] protocol ordered. 3. Hyponatremia. Chronic, has been worked up in the past with serum osmolality , urine osmolality and urine electrolytes. Likely related to low solute diet as well as chronic beer intake. Continue to monitor. Encourage p.o. intake. Patient states that he has not been eating well and has been losing weight. 4. Smoking cessation. Patient has tried to quit several times. Counselled and resources offered. Gets yearly CTs for purposes of surveillance. Full code. Lovenox for DVT prophylaxis. Regular diet. Problem List: 1. Hyponatremia 2. ETOH abuse 3. COPD (chronic obstructive pulmonary disease) Pain Ratin Pain Location: Chest Pain Goal: Remain pain free Pain Plan: NSAIDs. Tomorrow's Labs & Rationales: BEP for sodium levels.
[2017-12-11 09:06] LABS: HEMATOCRIT 46.3 % (42-52)
--- NOTE | 2017-12-11 09:27 | PN- Pulmonary ---
Subjective HPI/Critical Care Issues: pt seen and examined 95% room air feeing better afebrile Objective Current Medications: Current Medications Sig/Omar Start time Last Medication Dose Route Stop Time Status Admin Albuterol Sulfate 3 ML BID 12/11 0900 AC 12/11 INH 0852 Albuterol Sulfate 2 PUF Q4 12/10 1400 AC 12/11 INH 0906 Azithromycin 500 MG DAILY 12/11 0900 AC 12/11 Sodium Chloride 250 ML IV 0905 Budesonide/ 2 PUF BID 12/10 1052 AC 12/11 Formoterol Fumarate INH 0906 Enoxaparin Sodium 40 MG DAILY 12/11 0900 AC 12/11 SC 0907 Guaifenesin 600 MG Q12 12/10 1052 AC 12/11 PO 0907 Ibuprofen 600 MG Q12 12/10 1048 AC 12/11 PO 0908 Methylprednisolone 40 MG Q12 12/10 2100 AC 12/11 IV 12/16 0901 0908 Nicotine 0 .STK-MED ONE 12/10 1607 DC TOP Nicotine 21 MG ONCE ONE 12/10 1600 DC 12/10 TOP 12/10 1601 1600 Omeprazole 40 MG DAILY AC 12/10 1052 AC 12/11 PO 0556 Tiotropium [place] 1 PUF DAILY 12/10 1052 AC 12/11 INH 0908 Vital Signs & I&O Last 24 Hrs of Vitals and I&O: Vital Signs Date Time Temp Pulse Resp B/P B/P Pulse O2 O2 Flow FiO2 Mean Ox Delivery Rate 12/11 0853 95 Room Air Room Air 12/11 0654 98.5 91 18 124/68 96 Room Air 12/11 0000 Room Air 12/10 2217 Room Air Room Air 12/10 2154 98.3 84 18 118/60 92 Room Air 12/10 1630 96 Room Air 12/10 1627 98.0 73 18 134/80 95 Room Air 12/10 1520 98.1 85 20 147/77 95 Room Air 12/10 1330 98.5 90 20 145/81 93 12/10 1041 98.0 92 20 140/80 94 Room Air Intake & Output 12/11 1600 12/11 0800 12/11 0000 Intake Total 120 Output Total Balance 120 Intake, Oral 120 Patient 180 lb Weight Weight Reported by Patient Measurement Method Exam Other Physical Findings: gen awake and alert head/neck-ncat cvs s1s2 lungs rare rhonchi, reduced air entry abd soft, bs+ ext without edema skin without rashes Results Last 24 Hrs of Lab Results: Laboratory Tests 12/11/17 0720: Anion Gap 7, Estimated GFR > 60, BUN/Creatinine Ratio 16.7, CBC w Diff Pending, WBC Pending, RBC Pending, Hgb Pending, Hct Pending, MCV Pending, MCH Pending, MCHC Pending, RDW Pending, Plt Count Pending, MPV Pending, Gran % Pending, Lymphocytes % Pending, Monocytes % Pending, Eosinophils % Pending, Basophils % Pending, Absolute Granulocytes Pending, Absolute Lymphocytes Pending, Absolute Monocytes Pending, Absolute Eosinophils Pending, Absolute Basophils Pending 12/10/17 1104: Ur Random Creatinine 80.9, Ur Random Sodium 16 L, Ur Random Potassium 67.5, Fraction Sodium Excret 0.1 12/10/17 1104: Urine Opiates Screen < 100, Methadone Screen < 40, Barbiturate Screen < 60, Ur Phencyclidine Scrn < 6.00, Amphetamines Screen < 100, U Benzodiazepines Scrn < 85, Urine Cocaine Screen < 50, Urine Cannabis Screen < 5.00, Ur Random Creatinine Cancelled, Ur Random Sodium Cancelled, Ur Random Potassium Cancelled, Fraction Sodium Excret Cancelled Impression/Plan Impression/Plan Impression/Plan: Impression 62 year old man * Exacerbation of COPD likely secondary to tobacco dependence and recent exposure to burning and chopping wood * hyponatremia * etoh dependence Plan -solumedrol 40mg iv q12h -spiriva daily, this would be in addition to outpatient BREO -trc/nebs - q4-6 arond the clock -ciwa monitoring for possible withdrawal -hyponatremia per primary team, assess nutrition status DVT prophylaxis at all times
[2017-12-11 09:37] LABS: GRANULOCYTE % 89.6 % (42.2-75.2); PLATELET COUNT 275 /CUMM (130-400)
[2017-12-11 14:32] VITALS: BP 128/62
[2017-12-11 22:17] VITALS: BP 130/72
[2017-12-12] VITALS: BP 130/72
[2017-12-12 06:00] VITALS: BP 144/74
[2017-12-12] MEDS ORDERED: ZITHROMAX500 M2 PO (10:03)
[2017-12-12] MEDS ORDERED: LIDODERM1 EACH EXT (10:07)
[2017-12-12] MEDS ORDERED: NICOTINE PATCH1 EAC2 TOP (10:07)
[2017-12-12] MEDS ORDERED: IBUPROFEN600 M1 PO (10:07)
[2017-12-12] MEDS ORDERED: SPIRIVA18 MCG INH (10:07)
[2017-12-12] MEDS ORDERED: PREDNISONE10 M2 PO ×2 (10:09→10:46)
--- NOTE | 2017-12-12 10:11 | Patient Discharge Instructions ---
Discharge Instructions General Discharge Information You were seen/treated for: COPD exacerbation Special Instructions: Please see PCP in 1-2 weeks of discharge. Please see [facility] in 1-2 weeks of discharge. Please continue using Triple therpay (all three inhalers as prescribed). Continue your efforts towards quitting smoking. Diet Continue normal diet: Yes Activity Full Activity/No Limits: Yes Acute Coronary Syndrome Inclusion Criteria At DC or during hospital stay patient has or had the following: ACS DIAGNOSIS No Discharge Core Measures Meds if any: Prescribed or Continued at Discharge Meds if any: NOT Prescribed or Continued at Discharge Congestive Heart Failure Inclusion Criteria At DC or during hospital stay patient has or had the following: CHF DIAGNOSIS No Discharge Core Measures Meds if any: Prescribed or Continued at Discharge Meds if any: NOT Prescribed or Continued at Discharge Cerebrovascular accident Inclusion Criteria At DC or during hospital stay patient has or had the following: CVA/TIA Diagnosis No Discharge Core Measures Meds if any: Prescribed or Continued at Discharge Meds if any: NOT Prescribed or Continued at Discharge Venous thromboembolism Inclusion Criteria VTE Diagnosis No VTE Type NONE VTE Confirmed by (Test) NONE Discharge Core Measures - Per Current guidelines, there needs to be overlap - treatment for the first 5 days of Warfarin therapy. - If discharged on Warfarin prior to 5 days of - overlap therapy, the patient will need to be - assessed for post discharge needs including - *Post discharge parental anticoagulation - *Warfarin and/or parental anticoagulation education - *Follow up date to check INR post discharge At least 5 days overlap therapy as Inpatient No Meds if any: Prescribed or Continued at Discharge Note: Overlap Therapy is Warfarin and Anticoagulant Meds if any: NOT Prescribed or Continued at Discharge
--- NOTE | 2017-12-12 10:37 | Discharge Summary ---
Visit Information Visit Dates Admission Date: 12/10/17 Discharge Date: 12/12/17 Hospital Course Course Attending Physician: Ronal ALVAREZ,Jd Kang Primary Care Physician: Geremias Claire MD Hospital Course: 62 old gentleman with history of severe COPD not on home oxygen, alcohol use disorder, current everyday smoker, presented to the ED on 12/10/2017 for evaluation of shortness of breath of 2 days' duration. Patient has had recent hospitalization for COPD exacerbation, last of which was in October. Patient stated compliance with any inhalers, although he did run out of his Spiriva and had to be discontinued secondary to insurance coverage issues. He did have recent exposure to excess smoke, secondary to burning trees , recent stressors in life accounting for increased number of daily smoke cigarettes. No recent upper respiratory symptoms. Vitals upon admission. Afebrile, pulse rate 90-99, respiratory rate 18-20, saturations 95 on room air. Chest examination was significant for decreased air entry bilaterally and expiratory wheezes. Pertinent labs. Leukocytosis with no bandemia. Sodium 127, potassium 4.9, chloride 89 and BUN/creatinine-14/0.6. Problem list. 1. COPD exacerbation. Patient was admitted to general medicine floor, given IV steroids, TRC nebs, continued on triple inhaler therapy. Chest x-ray was unrevealing for any pneumonia. He showed significant improvement in his breathing symptoms and remained stable to be discharged on 12/12/2017 on an extended p.o. prednisone taper. He also received 5 days of azithromycin upon discharge. 2. Alcohol use disorder. CIWA protocol ordered. Patient stated that he drinks 6-12 beers each night. CIWA scores remain 0 and patient showed no signs of alcohol withdrawal. 3. Hyponatremia, chronic. This was thought to be secondary to low solute diet as well as chronic beer intake. Patient was encouraged to increase p.o. intake and over the course of his stay, his sodium levels trended towards normal. 4. Smoking cessation. Patient was counseled heavily to consider quitting smoking. He seems ready to try and was discharged on nicotine patches and other resources for help. Full code. Lovenox for DVT prophylaxis. Regular diet. Allergies: Coded Allergies: NO KNOWN ALLERGIES (05/29/16) Disposition Summary Disposition Principal Diagnosis: COPD exacerbation. Additional Diagnosis: Chronic hyponatremia. Discharge Disposition: home or self care Discharge Instructions General Discharge Information Code Status: Full Code Patient's Diet: Regular diet. Patient's Activity: As tolerated. Follow-Up Instructions/Appts: Please follow-up with primary care physician as an outpatient. Please follow-up with environmental aid as an outpatient. Please follow-up with COPD clinic as an outpatient. Please strongly consider quitting smoking. Medications at Discharge Discharge Medications: Stop taking the following medications: Prednisone (Prednisone) 10 MG TABLET ORAL SEE INSTRUCTIONS Qty = 42 Continue taking these medications: Fluticasone-Salmeterol (Advair 100-50 Diskus) 1 EACH BLST.W.DEV 1 Puff Inhale through mouth TWICE DAILY Qty = 1 Comments: NOT GIVEN IN HOSPITAL Omeprazole (Omeprazole) 40 MG CAPSULE.DR 1 Capsule ORAL DAILY Qty = 30 Comments: Last Taken: 12/12/17 Time: 6:35 AM Nystatin (Nystatin) 100,000 UNIT/ML ORAL.SUSP 5 Milliliters ORAL 4 TIMES A DAY as needed for YEAST INFECTION Qty = 2 Comments: NOT GIVEN IN HOSPITAL Guaifenesin (Guaifenesin ER) 600 MG TAB.ER.12H 1 Tablet ORAL EVERY 12 HOURS Qty = 14 Comments: Last Taken: 12/12/17 Time: 8:58 AM Albuterol Sulfate (Proventil Hfa) 6.7 GM HFA.AER.AD 2 Puff Inhale through mouth Every 4 hours Qty = 1 Comments: Last Taken: 12/12/17 Time: 1:02 PM Tiotropium [place] (Spiriva) 18 MCG CAP.W.DEV 1 Capsule Inhale through mouth DAILY Qty = 30 Comments: Last Taken: 12/12/17 Time: 8:57 AM This prescription has been renewed Start taking the following new medications: Nicotine (Nicotine Patch) 14 MG/24 HOUR PATCH.TD24 14 Milligram On the skin DAILY Qty = 14 No Refills Comments: Last Taken: 12/12/17 Time: 9:16 AM Ibuprofen (Ibuprofen) 600 MG TABLET 600 Milligram ORAL EVERY 12 HOURS as needed for CHEST PAIN Qty = 10 No Refills Comments: Last Taken: 12/12/17 Time: 8:56 AM Lidocaine (Lidoderm) 5 % ADH..PATCH 1 Patch ON SKIN DAILY as needed for CHEST PAIN Qty = 7 No Refills Comments: Last Taken: 12/12/17 Time: 12PM Prednisone (Prednisone) 10 MG TABLET 1 Tablet ORAL DAILY Qty = 45 No Refills Instructions: TAKE 50 MG X 3 DAYS STARTING 12/13/17. THEN 40 MG X 3 DAYS THEN 30 MG X 3 DAYS THEN 20 MG X 3 DAYS THEN 10 MG X 3 DAYS AND STOP. Comments: NOT GIVEN IN HOSPITAL Copies To: Kelvin ALVAREZ,Mj; Dakotah ALVAREZ,Geremias Cavazos Attending MD Review Statement Documenting Attending: Ronal ALVAREZ,Jd Kang
--- NOTE | 2017-12-12 10:44 | PN- Housestaff ---
See Addendum Subjective Follow-up For: COPD exacerbation Subjective: Notes improvement in breathing symptoms. Continue to complain of pain to his right chest wall, worse with coughing and breathing. EKG- reviewed, similar to baseline. Review of Systems Constitutional: Reports: see HPI. Objective Last 24 Hrs of Vital Signs/I&O Vital Signs Date Time Temp Pulse Resp B/P B/P Pulse O2 O2 Flow FiO2 Mean Ox Delivery Rate 12/12 0855 96 Room Air 12/12 06 97.9 81 16 144/74 96 Room Air 12/12 0000 Room Air 12/12 0000 97.9 77 16 130/72 12/11 2217 97.9 77 16 130/72 96 Room Air 12/11 1945 96 Room Air 12/11 1432 97.8 79 18 128/62 96 Room Air Intake & Output 12/12 1600 12/12 0800 12/12 0000 Intake Total 120 120 Output Total Balance 120 120 Intake, Oral 120 120 Physical Exam General Appearance: Alert, Oriented X3 Cardiovascular: Regular Rate, Normal S1, Normal S2 Lungs: Clear to Auscultation, Normal Air Movement, Tenderness on palpation of right chest wall. Abdomen: Normal Bowel Sounds, Soft Extremities: No Clubbing, No Cyanosis Current Medications: Current Medications Sig/Omar Start time Last Medication Dose Route Stop Time Status Admin Albuterol Sulfate 3 ML BID 12/11 899 AC 12/12 INH 0829 Albuterol Sulfate 2 PUF Q4 12/10 1400 AC 12/12 INH 0902 Azithromycin 500 MG DAILY 12/11 09 AC 12/12 Sodium Chloride 250 ML IV 0856 Budesonide/ 2 PUF BID 12/10 1052 AC 12/12 Formoterol Fumarate INH 0859 Enoxaparin Sodium 40 MG DAILY 12/11 0900 AC 12/12 SC 0856 Guaifenesin 600 MG Q12 12/10 1052 AC 12/12 PO 0858 Ibuprofen 600 MG Q12 12/10 1048 AC 12/12 PO 0856 Lidocaine 1 PAT DAILY 12/12 1001 AC EXT Methylprednisolone 40 MG DAILY 12/12 0900 DC 12/12 IV 12/21 0901 0856 Nicotine 14 MG DAILY 12/11 2115 AC 12/12 TOP 0916 Omeprazole 40 MG DAILY AC 12/10 1052 AC 12/12 PO 0635 Patient Medication 1 ED ONE ONE 12/11 1630 DC Teaching ED 12/11 1631 Tiotropium [place] 1 PUF DAILY 12/10 1052 AC 12/12 INH 0857 Last 24 Hrs of Lab/Gage Results Last 24 Hrs of Labs/Mics: Laboratory Tests 12/12/17 0635: Anion Gap 7, Estimated GFR > 60, BUN/Creatinine Ratio 17.1, Troponin I < 0.01, Eas-I-Xilamthbnom Pept 159 H Assessment/Plan Assessment: 62-year-old gentleman with history of COPD, daily alcohol use, current everyday smoker with recent increase in small number of cigarettes, here for COPD exacerbation likely secondary to combination of seasonal allergies, increased number of cigarettes, nature of his occupation, inability to be prescribed long- acting bronchodilator due to insurance issues and a recent episode of excess smoke exposure. He continues to drink 6 beers per night. 1. COPD exacerbation. Goal O2 sats greater than 90-92%. Extended PO Pred taper. PO Zithro x 5 days. TRC. Inhaled triple therapy. Pleuritic chest pain. Continue NSAIDs. Low risk for PE - Wells 0, D-dimer negative. Lidoderm to chest wall PRN. 2. Alcohol use disorder. CIWA protocol ordered. Scoring zero. 3. Hyponatremia. Chronic, has been worked up in the past with serum osmolality , urine osmolality and urine electrolytes. Likely related to low solute diet as well as chronic beer intake. Improving. 4. Smoking cessation. Patient has tried to quit several times. Counselled and resources offered. Gets yearly CTs for purposes of surveillance. Full code. Lovenox for DVT prophylaxis. Regular diet. Problem List: 1. Hyponatremia 2. COPD (chronic obstructive pulmonary disease) Pain Ratin Pain Location: Chest wall right Pain Goal: Remain pain free Pain Plan: NSAID and Lidoderm Tomorrow's Labs & Rationales: Not needed
--- NOTE | 2017-12-12 13:18 | PN- Pulmonary ---
See Addendum Subjective HPI/Critical Care Issues: pt seen and examined anticipating dc improved dyspnea Objective Current Medications: Current Medications Sig/Omar Start time Last Medication Dose Route Stop Time Status Admin Albuterol Sulfate 3 ML BID 12/11 0900 AC 12/12 INH 0829 Albuterol Sulfate 2 PUF Q4 12/10 1400 AC 12/12 INH 1302 Azithromycin 500 MG DAILY 12/11 0900 AC 12/12 Sodium Chloride 250 ML IV 0856 Budesonide/ 2 PUF BID 12/10 1052 AC 12/12 Formoterol Fumarate INH 0859 Enoxaparin Sodium 40 MG DAILY 12/11 0900 AC 12/12 SC 0856 Guaifenesin 600 MG Q12 12/10 1052 AC 12/12 PO 0858 Ibuprofen 600 MG Q12 12/10 1048 AC 12/12 PO 0856 Lidocaine 1 PAT DAILY 12/12 1001 AC 12/12 EXT 1147 Methylprednisolone 40 MG DAILY 12/12 0900 DC 12/12 IV 12/21 0901 0856 Nicotine 14 MG DAILY 12/11 2115 AC 12/12 TOP 0916 Omeprazole 40 MG DAILY AC 12/10 1052 AC 12/12 PO 0635 Patient Medication 1 ED ONE ONE 12/11 1630 DC Teaching ED 12/11 1631 Tiotropium [place] 1 PUF DAILY 12/10 1052 AC 12/12 INH 0857 Vital Signs & I&O Last 24 Hrs of Vitals and I&O: Vital Signs Date Time Temp Pulse Resp B/P B/P Pulse O2 O2 Flow FiO2 Mean Ox Delivery Rate 12/12 0855 96 Room Air 12/12 0600 97.9 81 16 144/74 96 Room Air 12/12 0000 Room Air 12/12 0000 97.9 77 16 130/72 12/11 2217 97.9 77 16 130/72 96 Room Air 12/11 1945 96 Room Air 12/11 1432 97.8 79 18 128/62 96 Room Air Intake & Output 12/12 1600 12/12 0800 12/12 0000 Intake Total 120 120 Output Total Balance 120 120 Intake, Oral 120 120 Results Last 24 Hrs of Lab Results: Laboratory Tests 12/12/17 0635: Anion Gap 7, Estimated GFR > 60, BUN/Creatinine Ratio 17.1, Troponin I < 0.01, Bwa-U-Cbzuffgikde Pept 159 H Impression/Plan Impression/Plan Impression/Plan: Impression 62 year old man * Exacerbation of COPD likely secondary to tobacco dependence and recent exposure to burning and chopping wood * hyponatremia * etoh dependence Plan -prednisone taper 50x3, 40x3, 30x3, 20x3, 10x3 then stop -spiriva daily, this would be in addition to outpatient BREO -trc/nebs DVT prophylaxis at all times okay for dc from pulmonary perspective
[2017-12-12 14:24] VITALS: BP 130/70
== END 2017-12-12 16:20 | DRG 191 ==
LOC: ERH 06:02 → ERHI 08:59 → 2NA 08:59 → ENRESERV 14:20 → ENTRNSPT 15:57 → EDTRNSPT 16:09 → EDTRNSPTSTS 16:09 → 2NA 16:16 → CMPTRNSPT 16:26 → 2NA 12-11 11:56 → ENPENDDIS 12-12 13:49 → 2NA 12-12 16:20
PROVIDERS: Internal Medicine Hematology & Oncology; Pediatrics
DX: J44.1 Chronic obstructive pulmonary disease with (acute) exacerbation (principal); R07.89 Other chest pain; E87.1 Hypo-osmolality and hyponatremia; F10.20 Alcohol dependence, uncomplicated; F17.210 Nicotine dependence, cigarettes, uncomplicated
CPT/HCPCS: 2NAP; 84133; 84300; 36592; 71045; 80307; 82436; 82570; 87040; 87449; 87450; 93005; 93010; 96374; 96375; J0456; J0696; J1650; J2920; J2930; J3490; J7040